=== PATIENT | female | born 1935 | race Caucasian/White ===

== ENCOUNTER 2016-12-29 05:21 | Inpatient (IN) ==
[2016-12-29] MEDS ORDERED: MORPHINE SULFATE 4mg INJECTION IVP ONE (05:27)
[2016-12-29] MEDS ORDERED: ONDANSETRON 4 MG/2 ML INJECTION IVP ONE (05:27)
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
[2016-12-29] MEDS: SALINE FLUSH 10ml SYRINGE IVF PRN (05:33)
[2016-12-29] MEDS ORDERED: NS 1,000 ML IV SCH (06:00)
[2016-12-29] MEDS ORDERED: HYDROMORPHONE 2 MG/ML INJECTION IVP ONE (06:16)
[2016-12-29] MEDS ORDERED: HYDROMORPHONE 2 MG/ML INJECTION IVP PRN (06:33)
[2016-12-29] MEDS ORDERED: MORPHINE SULFATE 4mg INJECTION IVP PRN (07:34)
[2016-12-29] MEDS ORDERED: METOCLOPRAMIDE 10mg/2ml INJECTION IVP PRN ×2 (07:34→16:31)
[2016-12-29 08:07] VITALS: BMI 29.5
[2016-12-29] MEDS: NS 1,000 ML IV SCH ×2 (08:18→21:04)
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
--- NOTE | 2016-12-29 09:08 | Orthopedic Consult Note ---
Orthopedic Consultation HPI - Consultation Info Consult Date: 12/29/16 Attending Physician: Tu Holguin MD Consult Reason: fracture - History of Present Illness Maribell is a 81 yo lady who is developing some dementia. She was recently started on some meds for this problem. Due to her dementia there are some conflicting stories about what happened to her, but the base concern is that she fell and injured her left hip. Refer to the hospitalist note for more details on the different stories. The pain was immediate, severe and she was unable to ambulate. She was taken to the ER by EMS and found to have an IT fx of the left hip. Hospitalist service has admitted her and cleared her for surgery. Dr Lewis was consulted and plans IM nailing of the left femur this AM. Review of Systems ROS unobtainable: due to dementia - EENT Ears, nose, mouth, throat: Absent: headaches - Cardiovascular Cardiovascular: Absent: chest pain - Respiratory Respiratory: Absent: cough, dyspnea - Gastrointestinal Gastrointestinal: Absent: abdominal pain - Musculoskeletal Musculoskeletal: Present: as per HPI, other (Denies other injury.) - Neurological Neurological: Absent: numbness, tingling - Psychiatric Psychiatric: Present: other (Memory changes.) [facility] Patient Stated Medical History Sleep Apnea No Surgical History: Cholecystectomy - Social History Smoking status: Never smoker Medications Home Medications Medication Instructions Recorded Confirmed Type Donepezil HCl [Aricept] 10 mg PO HS 12/29/16 12/29/16 History Ibuprofen/Diphenhydramine Cit 1 each PO HS 12/29/16 12/29/16 History [Advil Pm Caplet] [facility] 1 tab PO DAILY 12/29/16 History Allergies Allergy/AdvReac Type Severity Reaction Status Date / Time No Known Allergies Allergy Unverified 07/08/14 00:41 Orthopedic Exam Vital signs: Temperature 95.7 F L 12/29/16 08:11 Pulse Rate 94 12/29/16 08:11 Respiratory Rate 18 12/29/16 08:11 Blood Pressure 150/93 H 12/29/16 08:11 Pulse Oximetry 100 12/29/16 08:11 - Constitutional General Appearance: Present: alert - Respiratory Exam Present: non-labored - Cardiovascular Exam Present: pedal pulses intact Capillary Refill: < 2-3 Seconds - Abdominal Exam Present: soft. Absent: tenderness, distended - Extremities Exam Present: pulses intact - Hip Exam left Hip Exam: Present: unequal leg length, tender over trochanter, abnormal rotation. Absent: alignment normal - Integumentary Exam Present: pink, warm, dry - Neurological Exam Present: no deficits - Psychiatric Exam Present: alert - Labs Result Diagrams: 12/29/16 05:27 12/29/16 05:27 Impression and Recommendation (1) Intertrochanteric fracture of left hip Current visit: Yes Qualifiers: Encounter type: initial encounter Fracture type: closed Fracture alignment: displaced Qualified Code(s): S72.142A - Displaced intertrochanteric fracture of left femur, initial encounter for closed fracture Status: Acute Plan IM nailing with a Gamma Nail this AM. I discussed the procedure with pt and family. Dr Lewis will meet with them before surgery and discuss further. Hospital Course Summary Disclaimer: The visit summary below is not to be considered part of the above Progress Note.
[2016-12-29] MEDS: ONDANSETRON 4 MG/2 ML INJECTION IVP PRN ×2 (09:10→13:42)
--- NOTE | 2016-12-29 09:22 | Anesthesia Preoperative Report ---
Anesthesia Preoperative Record - Date and Time Date: 12/29/16 Preoperative Diagnosis: hip Proposed Procedure: Left hip Gamma nail NPO Since Date: 12/29/16 NPO Since Time: 00:00 Allergies/Adverse Reactions: Allergies Allergy/AdvReac Type Severity Reaction Status Date / Time No Known Allergies Allergy Unverified 07/08/14 00:41 - Vital Signs Vital Signs: Temperature 95.7 F L 12/29/16 08:11 Pulse Rate 94 12/29/16 08:11 Respiratory Rate 18 12/29/16 08:11 Blood Pressure 150/93 H 12/29/16 08:11 Pulse Oximetry 100 12/29/16 08:11 - Medications Inpatient Medications: Current Medications Hydromorphone HCl (Dilaudid) 0.5 mg IVP O PRN PRN Reason: Pain Hydromorphone HCl (Dilaudid) 0.5 mg IVP Q2H PRN PRN Reason: Pain Sodium Chloride (Normal Saline) 1,000 mls @ 100 mls/hr IV .Q10H ADAM Last Admin: 12/29/16 08:18 Dose: 100 mls/hr Metoclopramide HCl (Reglan) 5 mg IVP Q6H PRN Morphine Sulfate (Morphine Sulfate Inj) 1 - 2 mg IVP Q2H PRN PRN Reason: Pain Last Admin: 12/29/16 08:17 Dose: 2 mg Ondansetron HCl (Zofran) 4 mg IVP Q6H PRN PRN Reason: Nausea &/or vomiting Last Admin: 12/29/16 09:10 Dose: 4 mg Sodium Chloride (Iv Flush) 10 - 80 ml IVF PRN PRN PRN Reason: Flushing Last Admin: 12/29/16 05:33 Dose: 20 ml Home Medications: Home Medications Medication Instructions Recorded Confirmed Type Donepezil HCl [Aricept] 10 mg PO HS 12/29/16 12/29/16 History Ibuprofen/Diphenhydramine Cit 1 each PO HS 12/29/16 12/29/16 History [Advil Pm Caplet] [facility] 1 tab PO DAILY 12/29/16 History Is Patient on Beta Tejinder?: No - Medical History Respiratory: DENIES: Sleep Apnea Cardiovascular: Reports: Hypertension (TAKES HERBAL MEDS) Neuro/Musculoskeletal: Reports: Other (Dementitia) - Surgical History GI Surgery/Treatments: Reports: Cholecystectomy Musculoskeletal Surgery/Tx: Reports: Other (broken ankle, casted) Anesthesia Reactions: None Hx Family Anesthesia Reaction: No History of Motion Sickness: No - Social History Smoking Status: Never smoker Hx Chewing Tobacco Use: No Second Hand Exposure: No Substance Use Type: does not use Alcohol Intake Frequency: does not drink - Pertinent Findings EKG: Sinus Rhythm (occ PAC) - Physical Exam Respiratory Exam: Present: lungs clear Cardiovascular Exam: Present: regular rate and rhythm - Airway Assessment Mallampati Score: II TMD: 3 Fingerbreadths Neck Extension: fair Overall Assessment: no airway concerns - ASA ASA Score: 2 - Plan Anesthesia: General TIVA - Discussion Discussion: Discussed risks/options/alternatives of anesthesia and questions answered. Patient consents. Nursing pain assessment noted. Present for Discussion: family member Attestation Statement: Prior to the delivery of any anesthetic medication, I examined the patient, developed the plan, obtained the patient's consent and discussed the risk and benefits of the procedure with the patient/guardian. - Additional Information Seen by Anesthesia: Yes
[2016-12-29] MEDS ORDERED: HALOPERIDOL 0.5 MG TABLET PO PRN (09:36)
[2016-12-29] MEDS ORDERED: BISACODYL 10 MG SUPPOSITORY RECTALLY PRN (09:36)
[2016-12-29] MEDS: LR 1,000 ML IV SCH ×2 (10:10→11:35)
[2016-12-29] MEDS ORDERED: LIDOCAINE 1% (10mg/ml) 30ml SDV INJ ONE (10:17)
[2016-12-29] MEDS ORDERED: BUPIVACAINE 0.25% (2.5mg/ml) PF 30ml INJECTION ONE (10:18)
[2016-12-29] MEDS ORDERED: BUPIV 0.25% 30ml/LIDO 1% 30ml MIXTURE ID ONE (10:28)
[2016-12-29] MEDS ORDERED: CEFAZOLIN 1 G INJECTION ONE (10:28)
[2016-12-29] MEDS ORDERED: CEFAZOLIN 1 G INJECTION IVP ONE (10:29)
[2016-12-29] MEDS ORDERED: PHENYLEPHRINE INJ 10 MG/ML VIAL IV ONE (10:33)
[2016-12-29] MEDS ORDERED: SALINE FLUSH 10ml SYRINGE ONE (10:34)
[2016-12-29] MEDS ORDERED: PROPOFOL 1,000 MG/100 ML VIAL IV ONE (11:21)
[2016-12-29] MEDS ORDERED: ONDANSETRON 4 MG/2 ML INJECTION IVP PRN (11:28)
--- NOTE | 2016-12-29 11:31 | Anesthesia Postoperative Note ---
- Date and Time Date: 12/29/16 Time: 11:29 - Status Patient Participated in Evaluation: Patient Participated in Person Vital Signs: Temperature 95.7 F L 12/29/16 08:11 Pulse Rate 94 12/29/16 08:11 Respiratory Rate 18 12/29/16 08:11 Blood Pressure 150/93 H 12/29/16 08:11 Pulse Oximetry 100 12/29/16 08:11 Respiratory Function: Airway Patent Cardiovascular Function: Regular Pulse EKG: Sinus Rhythm Mental Status: Lethargic (Confused. Patient has Hx of Dementia) Pain Intensity: 5 Hydration: IV Infusing Complications During Recover: None Apparent - Follow-Up Instructions Instructions: Per Surgeon
[2016-12-29] MEDS: HYDROMORPHONE 2 MG/ML INJECTION IVP PRN ×4 (11:49→23:59)
--- NOTE | 2016-12-29 12:23 | Operative Note ---
DATE OF SURGERY 12/29/2016 PREOPERATIVE DIAGNOSIS Left two-part intertrochanteric hip fracture. PREOPERATIVE DIAGNOSIS Left two-part intertrochanteric hip fracture. PROCEDURE Intramedullary fixation of left two-part intertrochanteric hip fracture. SURGEON Dante Lewis MD DELIVERY NURSE Mervin Diaz PA-C COMPLICATIONS None. ANESTHESIA TIVA EBL/FLUIDS Please see anesthetic records. DESCRIPTION OF PROCEDURE Mrs. Cabello and her left hip were identified and marked in her hospital room bed. She was brought back to the operating suite and placed under general anesthesia on the hospital room bed. She was then transferred to the fracture table. Both feet were placed in well-padded traction boots. The left leg was placed into straight traction. The right leg was placed into extension without traction. The left lower extremity was prepped and draped in my normal sterile fashion. Time-out was performed. A 3-cm incision was made proximal to the greater trochanter. The proximal femur was opened over a guide pin. A short 11-mm Gamma nail was selected and placed into the proximal femur. A lag screw was then placed into a center-center position using the aiming arm over a guide pin. This was a 90-mm lag screw. It achieved a good bite. Compression device was used to provide compression at the fracture site. The nail was then locked proximally, then let back 1/8 turn to allow for compression. The nail was locked distally using the aiming arm using a 37.5-mm screw. Local injection was used at all incision sites. Multiple fluoroscopic images were taken to insure good hardware placement and fracture reduction. All wounds were thoroughly irrigated and closed in layers. She was then taken out of traction and transferred back to her recovery room bed. She was allowed to awaken from general anesthesia and taken to the recovery room under the care of Anesthesia. She tolerated the procedure well. There were no complications. JOCELYN
[2016-12-29] MEDS ORDERED: NOZIN NASAL SWAB NAS ONE (13:54)
[2016-12-29] MEDS: NOZIN NASAL SWAB NAS SCH ×2 (14:30→21:57)
[2016-12-29] MEDS: CEFAZOLIN 2 G in NS 100 ML IV SCH (18:05)
[2016-12-29] MEDS: SENNA + DOCUSATE TABLET PO SCH (21:57)
[2016-12-30] MEDS: CEFAZOLIN 2 G in NS 100 ML IV SCH (02:06)
[2016-12-30] MEDS: HYDROMORPHONE 2 MG/ML INJECTION IVP PRN ×2 (05:00→19:36)
[2016-12-30] MEDS: ACETAMINOPHEN 325 MG TABLET PO PRN ×3 (05:01→19:01)
[2016-12-30] MEDS: NOZIN NASAL SWAB NAS SCH ×3 (05:01→21:42)
[2016-12-30] MEDS: NS 1,000 ML IV SCH (07:59)
--- NOTE | 2016-12-30 08:49 | XRay Report ---
Indication: preop PROCEDURE: XR chest 1V: Encounter: Initial Comparison: July 07, 2014 Findings: The lungs are stable in appearance without new focal airspace consolidation. There is no pleural effusion or pneumothorax. The heart size and mediastinal contours are unchanged. IMPRESSION: Stable appearance of the chest without acute cardiopulmonary disease. .
--- NOTE | 2016-12-30 08:50 | XRay Report ---
Indication: fall left hip pain external rotation PROCEDURE: XR pelvis w/ 2 view LT hip: Encounter: Initial Comparison: None Findings: Mildly displaced intertrochanteric left femoral fracture. No additional acute fracture or dislocation seen. No significant angulation. Impression: Closed posttraumatic intertrochanteric left femoral fracture. .
--- NOTE | 2016-12-30 09:15 | Orthopedic Progress Note ---
Date: Subjective/Severity of Illness: Maribell reports little pain at rest but hurts more with movement. Denies any CP or breathing issues. No drainage from the wounds. She is thirsty for coffee and feels she is ready to eat something. Denies nausea at this time but has reported some previously. Orthopedic Objective PO Vital signs: Temperature 98.2 F 12/30/16 07:30 Pulse Rate 89 12/30/16 07:30 Respiratory Rate 16 12/30/16 07:30 Blood Pressure 118/65 12/30/16 07:30 Pulse Oximetry 100 12/30/16 07:30 - Constitutional General Appearance: Present: alert, cooperative, no acute distress - Respiratory Exam Present: non-labored - Cardiovascular Exam Present: pedal pulses intact - Extremities Exam Extremities: Present: pulses intact. Absent: calf tenderness - Surgical Site Incision: dressing intact, no drainage - Neurological Exam Present: no deficits - Psychiatric Exam Present: alert - Labs Result Diagrams: 12/30/16 04:08 12/30/16 04:08 Abnormal lab results 12/30/16 Range/Units 04:08 RBC 3.33 L (4.00-5.20) M/MM3 Hgb 9.1 L D (12-16) GM/DL Hct 29.4 L D (36-46) % Neut % (Auto) 76.8 H (33-66) % Lymph % (Auto) 10.4 L (23-45) % [place] % (Auto) 11.9 H (0-9.0) % Lymph # (Auto) 0.9 L (1-4.8) T/MM3 [place] # (Auto) 1.0 H (0-0.8) T/MM3 H & H 12/30/16 Range/Units 04:08 Hgb 9.1 L D (12-16) GM/DL Hct 29.4 L D (36-46) % Orthopedic Assessment and Plan (1) Intertrochanteric fracture of left hip Status: Acute Qualifiers: Encounter type: initial encounter Fracture type: closed Fracture alignment: displaced Qualified Code(s): S72.142A - Displaced intertrochanteric fracture of left femur, initial encounter for closed fracture Assessment and Plan: Mobilize with therapy. WBAT. Lovenox and SCDs for DVT coverage. Hgb 9.1 this AM. Monitor. Hospital Course Summary Disclaimer: The visit summary below is not to be considered part of the above Progress Note. Hospital Course: 12/29/16 09:46 IMPRESSION Left hip IT fracture s/p fall Leukocytosis, suspect reactive Hypokalemia, POA HTN dementia PLAN Admit, inpatient status, under the hospitalist service. Dr. Lewis has been consulted and is planning IM nailing this morning. Diet: NPO. NS @ 100 mL/hr for hydration. Tan ordered per ED MD. Will give dose of KDur this evening with supper. Tele given hx of palpitations. Check TSH. Check Vit B12 and prealbumin d/t hx of not eating well, weight loss, and hallucinations. Monitor for postop/post injury complications - ABLA, constipation, delirium, atelectasis, immobility issues. -Check CBC/BMP in am to f/u on WBC, H&H & K. -Bowel regimen ordered. -Haldol PRN. Continue home donepezil when meds reconciled by RN. -Encourage IS -Consult PT/OT. -VTE PPX - SCDs, start Lovenox tomorrow am. Hx HTN, on herbals - monitor closely; may need to start antiHTN. BP markedly elevated on admission but this was confounded by acute pain. Advanced directives - not completed. Likely will name daughter Ana Maria as DPOA ( at time of admission, even with mild dementia, pt appeared to have mental capacity to make decisions, as she was able to understand the need for sx). No living will; FULL CODE.
[2016-12-30] MEDS: ENOXAPARIN 40 MG/0.4 ML INJECTION SQ SCH (09:17)
[2016-12-30] MEDS: POLYETHYL GLYCOL 3350 17gm PACKET PO SCH (09:17)
[2016-12-30] MEDS: SENNA + DOCUSATE TABLET PO SCH ×2 (09:17→21:42)
--- NOTE | 2016-12-30 09:18 | XRay Report ---
Indication: POST OP PAIN PROCEDURE: AP and Lateral views of the Left Femur Encounter: Initial Comparison: None Findings: Internally fixed left intertrochanteric left femoral fracture with intramedullary may all and compression screw. Stable alignment. No new findings or evidence of hardware failure. Moderate degenerative change in the knee joint. Expected postoperative subcutaneous gas. No retained radiopaque surgical instruments or sponges. Impression: Postoperative changes without immediate complication. .
--- NOTE | 2016-12-30 09:30 | Remote Fluorsocopy Report ---
Indication: LT HIP FX PROCEDURE: RF hip LT 2 view: Encounter: Initial Comparison: Left pelvis radiographs from the same date Findings: Three fluoroscopic spot images show open reduction and internal fixation of the left femoral neck fracture with placement of an an intramedullary nail, compression screw and distal interlocking screw. Improved alignment. Impression: Fluoroscopy as above. Fluoroscopy time is 87.9 seconds. Fluoroscopy dose is 1870 mRad. .
[2016-12-30] MEDS ORDERED: FUROSEMIDE 20 MG/2 ML INJECTION IVP ONE (12:32)
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
[2016-12-30] MEDS: HYDROCODONE/APAP 5mg/325mg TABLET PO PRN ×2 (13:12→17:25)
[2016-12-30] MEDS: SALINE FLUSH 10ml SYRINGE IVF PRN ×2 (19:36→21:48)
[2016-12-30] MEDS ORDERED: QUETIAPINE 25 MG TABLET PO SCH (21:00)
[2016-12-31] MEDS: HYDROCODONE/APAP 5mg/325mg TABLET PO PRN ×2 (04:24→13:55)
[2016-12-31] MEDS: SALINE FLUSH 10ml SYRINGE IVF PRN ×4 (06:17→11:40)
[2016-12-31] MEDS: NOZIN NASAL SWAB NAS SCH (06:17)
--- NOTE | 2016-12-31 08:07 | Orthopedic Progress Note ---
Date: Subjective/Severity of Illness: Appetite not very good this AM. Not painful at rest but hurts with movement. Pt states she is ready to get up out of bed. No CP or feeling SOA. Denies being lightheaded or dizzy. Orthopedic Objective PO Vital signs: Temperature 98.5 F 12/31/16 04:00 Pulse Rate 91 12/31/16 04:00 Respiratory Rate 16 12/31/16 04:00 Blood Pressure 134/65 12/31/16 04:00 Pulse Oximetry 92 12/31/16 04:00 Height and Weight: Weight 182 lb 15.739 oz - Constitutional General Appearance: Present: alert, cooperative, no acute distress - Respiratory Exam Present: non-labored - Cardiovascular Exam Present: pedal pulses intact - Abdominal Exam Present: soft. Absent: tenderness, distended - Extremities Exam Extremities: Present: pulses intact. Absent: calf tenderness - Surgical Site Incision: dressing intact, no drainage - Integumentary Exam Present: pink, warm, dry - Neurological Exam Present: no deficits - Psychiatric Exam Present: alert - Labs Result Diagrams: 12/31/16 04:12 12/31/16 04:12 Abnormal lab results 12/31/16 12/31/16 Range/Units 04:12 04:12 RBC 3.04 L (4.00-5.20) M/MM3 Hgb 8.3 L (12-16) GM/DL Hct 27.1 L (36-46) % MCHC 30.6 L (31-37) GM/DL Neut % (Auto) 68.5 H (33-66) % Lymph % (Auto) 14.0 L (23-45) % [place] % (Auto) 12.5 H (0-9.0) % Eos % (Auto) 4.3 H (0-4) % [place] # (Auto) 0.9 H (0-0.8) T/MM3 Anion Gap 3 L (5-15) MEQ/L Creatinine 0.6 L (0.7-1.2) MG/DL H & H 12/30/16 12/31/16 Range/Units 04:08 04:12 Hgb 9.1 L D 8.3 L (12-16) GM/DL Hct 29.4 L D 27.1 L (36-46) % Orthopedic Assessment and Plan (1) Intertrochanteric fracture of left hip Status: Acute Qualifiers: Encounter type: initial encounter Fracture type: closed Fracture alignment: displaced Qualified Code(s): S72.142A - Displaced intertrochanteric fracture of left femur, initial encounter for closed fracture Assessment and Plan: Short Gamma Nail 12/29/16 Dr Joshua HAYES. Mobilize with therapy. WBAT. Lovenox and SCDs for DVT coverage. F/U 3 weeks from surgery date. - Anticoagulation Therapy Anticoagulation: Lovenox 40 mg SQ Daily x 30 days from day of surgery Hospital Course Summary Disclaimer: The visit summary below is not to be considered part of the above Progress Note. Hospital Course: 12/29/16 09:46 IMPRESSION Left hip IT fracture s/p fall Leukocytosis, suspect reactive Hypokalemia, POA HTN dementia PLAN Admit, inpatient status, under the hospitalist service. Dr. Lewis has been consulted and is planning IM nailing this morning. Diet: NPO. NS @ 100 mL/hr for hydration. Tan ordered per ED MD. Will give dose of KDur this evening with supper. Tele given hx of palpitations. Check TSH. Check Vit B12 and prealbumin d/t hx of not eating well, weight loss, and hallucinations. Monitor for postop/post injury complications - ABLA, constipation, delirium, atelectasis, immobility issues. -Check CBC/BMP in am to f/u on WBC, H&H & K. -Bowel regimen ordered. -Haldol PRN. Continue home donepezil when meds reconciled by RN. -Encourage IS -Consult PT/OT. -VTE PPX - SCDs, start Lovenox tomorrow am. Hx HTN, on herbals - monitor closely; may need to start antiHTN. BP markedly elevated on admission but this was confounded by acute pain. Advanced directives - not completed. Likely will name daughter Ana Maria as DPOA ( at time of admission, even with mild dementia, pt appeared to have mental capacity to make decisions, as she was able to understand the need for sx). No living will; FULL CODE. 12/30/16 12:55 12/30/16- Patient is medically progressing. Continue to monitor labs closely. Appears to be at risk for fluid overload- suspect A.S. Get Echo in AM. Add lasix/KCL and monitor progress. 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 Continue supportive care. Add Seroquel at bedtime to see if that helps behaviors. Add [place] for pain control. May need to add Gabapentin if pain persists. Will need placement- IRU or SNU. Daughter reports family would like to look at SNU in [place]. Recommended [facility] or [facility] if they desire [place] [facility]. [facility] does have memory care options. Would recommend that pt establish DPOA. They will need to look into HCBS supplementation for care at home in the future most likely. Pt will likely need 3-4 weeks of care at least as both she and primary caregiver are recovering. She does not have a PCP- I would be happy to see her in my clinic post discharge. [facility]- Jasmin Tineo APRN Call [phone] to set up appointment after discharge from SNU. We can assist with setting up PCP. Would recommend Home Health on dismissal from SNU>
[2016-12-31] MEDS: ACETAMINOPHEN 325 MG TABLET PO PRN (08:59)
[2016-12-31] MEDS: POLYETHYL GLYCOL 3350 17gm PACKET PO SCH (08:59)
[2016-12-31] MEDS: SENNA + DOCUSATE TABLET PO SCH (08:59)
[2016-12-31] MEDS ORDERED: FUROSEMIDE 40 MG TABLET PO SCH (09:00)
[2016-12-31] MEDS: ENOXAPARIN 40 MG/0.4 ML INJECTION SQ SCH (09:03)
[2016-12-31] MEDS ORDERED: MORPHINE SULFATE 4mg INJECTION IVP PRN (09:06)
[2016-12-31] MEDS ORDERED: MORPHINE SULFATE 2mg INJECTION IVP PRN (09:15)
[2016-12-31] MEDS: HYDROMORPHONE 2 MG/ML INJECTION IVP PRN (09:18)
--- NOTE | 2016-12-31 10:32 | Progress Note ---
<Jill Izquierdo - Last Filed: 12/31/16 10:28> - Date 12/31/16 Subjective: Maribell is seen today in follow up for her anemia and recent short gamma nail placed on 12/29. She is seen while sitting in her recliner, resting. Dry toast on her tray in front of her but she refuses to eat due to increased nausea. Nursing reports that she has complained of severe left hip pain with initial therapy session this morning in which she transferred from her bed to the chair. She also complained of nausea which she believed was due to her pain. She denies any chest pain, shortness of breath, abdominal pain, vomiting or dysuria. Due to her significant pain, she received Dilaudid resulting in increased sedation and required placement of 2L NC oxygen. She denies use of oxygen at home or history of lung complications. Discussed and reviewed importance and technique of incentive spirometry. Labs were reviewed and revealed hemoglobin trending down at 8.3. BMP unremarkable. Echocardiogram report pending. Weight trending up slightly. Objective Vital signs: Temperature 96.4 F L 12/31/16 08:00 Pulse Rate 83 12/31/16 08:00 Respiratory Rate 26 H 12/31/16 08:00 Blood Pressure 126/65 12/31/16 08:00 Pulse Oximetry 99 12/31/16 08:00 Height/Weight/BMI: Weight 182 lb 15.739 oz - Constitutional Present: no acute distress, well nourished, well developed, cooperative Comments: somnolent, arouses easily on exam but states "I just want to rest". - Routine HEENT Exam Head: Present: normocephalic, atraumatic Eye: Present: PERRL. Absent: conjunctival icterus ENT: Present: mucous membranes moist - Routine Respiratory Exam Present: CTA bilaterally. Absent: stridor, wheezes, crackles - Routine Cardiovascular Exam Present: RRR, S1, S2, murmur - Routine Abdominal Exam Present: soft, normoactive bowel sounds, non distended, non tender - Routine Extremities Exam Present: edema (trace - 1+), pulses intact Comments: SCDs in place bilaterally. - Routine Back/Spine/Pelvis Exam Back/Spine: Present: full ROM - Routine Skin Exam Present: dry, warm. Absent: jaundice Comments: ecchymosis noted to left hip with dressing intact. - Routine Neurological Exam Present: alert, moving all extremities, hearing grossly intact, normal speech - Routine Lymphatic Exam Lymphatic: Absent: lymphedema - Routine Psychiatric Exam Present: cooperative Comments: somnolent following medication. Results - Labs CBC & Chem 7: 12/31/16 04:12 12/31/16 04:12 Assessment and Plan (1) Intertrochanteric fracture of left hip Current visit: Yes Status: Acute Assessment and Plan: IMPRESSION Left hip IT fracture s/p fall Leukocytosis, suspect reactive Hypokalemia (POA) HTN Dementia Aortic murmur, suspected VHD Fluid retention. ABLA, left hip hematoma Acute pain [facility] Plan - 12/31/16 (Mirakian). Maribell had significant issues with severe pain this morning with transfer with therapy. Anticipate therapy to be slow going given patient's pain. Dilaudid was given with improvement in pain but significantly increased sedation requiring oxygen at 2L to be placed. Encourage use of Morphine and oral pain control as able and monitor respiratory function closely. Discussed and review technique for incentive spirometry for pulmonary toileting. Nausea this morning, believed to be secondary to increased pain. Zofran given. Continue to encourage oral intake and monitor urinary output closely. Weight trending up slowly. Monitor closely as patient is at risk for fluid overload. Echocardiogram results pending. Monitor daily weights. Continue to encourage PT/OT for strengthening and improvement in functional abilities. Hemoglobin trending down at 8.3. Patient denies dizziness or near syncope. Continue to monitor closely and will recheck CBC and BMP in AM to monitor blood counts, electrolytes and renal function. Continue to encourage bowel motivation. DVT Prophylaxis: SCD's, Lovenox Resuscitation Status: Full Code - Time spent with patient Time with patient PN: 30 minutes Hospital Course Summary Disclaimer: The visit summary below is not to be considered part of the above Progress Note. Hospital Course: 12/29/16 09:46 IMPRESSION Left hip IT fracture s/p fall Leukocytosis, suspect reactive Hypokalemia, POA HTN dementia PLAN Admit, inpatient status, under the hospitalist service. Dr. Lewis has been consulted and is planning IM nailing this morning. Diet: NPO. NS @ 100 mL/hr for hydration. Tan ordered per ED MD. Will give dose of KDur this evening with supper. Tele given hx of palpitations. Check TSH. Check Vit B12 and prealbumin d/t hx of not eating well, weight loss, and hallucinations. Monitor for postop/post injury complications - ABLA, constipation, delirium, atelectasis, immobility issues. -Check CBC/BMP in am to f/u on WBC, H&H & K. -Bowel regimen ordered. -Haldol PRN. Continue home donepezil when meds reconciled by RN. -Encourage IS -Consult PT/OT. -VTE PPX - SCDs, start Lovenox tomorrow am. Hx HTN, on herbals - monitor closely; may need to start antiHTN. BP markedly elevated on admission but this was confounded by acute pain. Advanced directives - not completed. Likely will name daughter Ana Maria as DPOA ( at time of admission, even with mild dementia, pt appeared to have mental capacity to make decisions, as she was able to understand the need for sx). No living will; FULL CODE. 12/30/16 12:55 12/30/16- Patient is medically progressing. Continue to monitor labs closely. Appears to be at risk for fluid overload- suspect A.S. Get Echo in AM. Add lasix/KCL and monitor progress. 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 Continue supportive care. Add Seroquel at bedtime to see if that helps behaviors. Add [place] for pain control. May need to add Gabapentin if pain persists. Will need placement- IRU or SNU. Daughter reports family would like to look at SNU in [place]. Recommended [facility] or [facility] if they desire [facility]. [facility] does have memory care options. Would recommend that pt establish DPOA. They will need to look into HCBS supplementation for care at home in the future most likely. Pt will likely need 3-4 weeks of care at least as both she and primary caregiver are recovering. She does not have a PCP- I would be happy to see her in my clinic post discharge. [facility]- Jasmin Tineo APRN Call [phone] to set up appointment after discharge from SNU. We can assist with setting up PCP. Would recommend Home Health on dismissal from SNU> Plan - 12/31/16 (Timbo). Maribell had significant issues with severe pain this morning with transfer with therapy. Anticipate therapy to be slow going given patient's pain. Dilaudid was given with improvement in pain but significantly increased sedation requiring oxygen at 2L to be placed. Encourage use of Morphine and oral pain control as able and monitor respiratory function closely. Discussed and review technique for incentive spirometry for pulmonary toileting. Nausea this morning, believed to be secondary to increased pain. Zofran given. Continue to encourage oral intake and monitor urinary output closely. Weight trending up slowly. Monitor closely as patient is at risk for fluid overload. Echocardiogram results pending. Monitor daily weights. Continue to encourage PT/OT for strengthening and improvement in functional abilities. Hemoglobin trending down at 8.3. Patient denies dizziness or near syncope. Continue to monitor closely and will recheck CBC and BMP in AM to monitor blood counts, electrolytes and renal function. Continue to encourage bowel motivation. <Tu Holguin D - Last Filed: 12/31/16 11:44> - Date 12/31/16 Objective Vital signs: Temperature 98.6 F 12/31/16 11:25 Pulse Rate 84 12/31/16 11:25 Respiratory Rate 16 12/31/16 11:25 Blood Pressure 130/69 12/31/16 11:25 Pulse Oximetry 99 12/31/16 11:25 Height/Weight/BMI: Weight 83 kg Results - Labs CBC & Chem 7: 12/31/16 04:12 12/31/16 04:12 Assessment and Plan (1) Intertrochanteric fracture of left hip Current visit: Yes Status: Acute Assessment and Plan: IMPRESSION Left hip IT fracture s/p fall Leukocytosis, suspect reactive Hypokalemia (POA) HTN Dementia Aortic murmur, suspected VHD Fluid retention. ABLA, left hip hematoma Acute pain Briseida's Have independently interviewed and examined pt. Chart reviewed. Case discussed with CM, nursing, and my PA. Care plan developed with my supervision; agree with above. Rough morning. Up with therapy for first time-very painful. Did receive IV Dilaudid and resp drive decreased and became somnolent. Nauseated this morning- very upset to stomach. Not having ab pain or cramping. Not feeling chest congestion, cough, or pain with breathing. Nursing reports no agitation or behavioral issues. Lungs: decreased, no distress CV: regular with murmur AB: soft nt/nd BS decreased MSE: awake alert appropriate Plan: Will stop Dilaudid due to somnolence and decreased respiratory drive; Low dose MS available-trying to transition to oral pain medications. Stop Seroquel- not seeing behavioral issues and likely could increase daytime sedation. Monitor blood counts - may need transfusion. Bladder retraining - worry too soon now to remove Tan as functional status still very declined and pain with movements/transfers. PT/OT to help increase abilities. CM looking into post discharge options. Time spent with patient care 35 minutes. High risk medication involved - MS IV. - Time spent with patient Time with patient PN: 35 minutes Hospital Course Summary Disclaimer: The visit summary below is not to be considered part of the above Progress Note.
[2016-12-31 11:26] VITALS: BP 130/69; PULSE 84; RESP 16; TEMP 98.6
[2016-12-31] MEDS: ONDANSETRON 4 MG/2 ML INJECTION IVP PRN (11:41)
[2016-12-31 14:45] VITALS: O2SAT 96
--- NOTE | 2016-12-31 14:53 | Discharge Summary ---
Discharge Information Date of admission: 12/29/16 08:46 Anticipated date of discharge: 12/31/16 Attending Physician: Tu Holguin MD Consults: Dr Lewis - orthopedic surgery Dr Shankar - metabolic bone consult PT/OT IRU for rehab evaluation - Discharge Diagnosis (1) Intertrochanteric fracture of left hip Status: Acute Discharge diagnosis Left two-part intertrochanteric hip fracture post fall trauma Associated conditions and complications Mechanical fall Leukocytosis, suspect reactive Hypokalemia (POA) HTN Dementia Aortic murmur, suspected VHD Fluid retention. ABLA, left hip hematoma Acute pain [facility]owner's - Procedures Procedures: DATE OF SURGERY: 12/29/2016 PROCEDURE: Intramedullary fixation of left two-part intertrochanteric hip fracture. Physician: Dr Lewis - Laboratory Labs: Admit Labs 12/29/16 05:27 WBC 15.0 H Hgb 13.0 Hct 40.0 MCV 84.6 Plt Count 218 Neut % (Auto) 86.9 H Lymph % (Auto) 5.3 L Admit Lab 12/29/16 12/30/16 05:27 04:08 Sodium 142 Potassium 3.4 L Chloride 104 Carbon Dioxide 26 Anion Gap 12 BUN 15.0 Creatinine 0.6 L GFR Calculation 96 BUN/Creatinine Ratio 25 Glucose 113 H Calculated Osmolality 275 Calcium 10.3 H Total Bilirubin 0.90 AST 26 ALT 37 Alkaline Phosphatase 89 Creatine Kinase 55 Total Protein 7.9 Albumin 4.6 Globulin 3.3 Albumin/Globulin Ratio 1.4 Vitamin B12 534 THS Testing 12/30/16 04:08 TSH 4.20 Pending Lab 12/30/16 04:08 25-OH Vitamin D Total Pending 12/31/16 04:12 12/31/16 04:12 - Radiology Radiology: Date of Exam: 12/29/16 Type of Exam: XR pelvis w/ 2 view LT hip Findings: Mildly displaced intertrochanteric left femoral fracture. No additional acute fracture or dislocation seen. No significant angulation. Impression: Closed posttraumatic intertrochanteric left femoral fracture. Date of Exam: 12/29/16 Type of Exam: XR chest 1V Findings: The lungs are stable in appearance without new focal airspace consolidation. There is no pleural effusion or pneumothorax. The heart size and mediastinal contours are unchanged. IMPRESSION: Stable appearance of the chest without acute cardiopulmonary disease. Date of Exam: 12/29/16 Type of Exam: XR femur LT 2V Reason for Exam: POST OP PAIN Findings: Internally fixed left intertrochanteric left femoral fracture with intramedullary may all and compression screw. Stable alignment. No new findings or evidence of hardware failure. Moderate degenerative change in the knee joint. Expected postoperative subcutaneous gas. No retained radiopaque surgical instruments or sponges. Impression: Postoperative changes without immediate complication. History of Present Illness HPI: Maribell Cabello is a 81 y/o woman who woke up around 0100 to use the bathroom. She reports she took a sharp turn to avoid a book case, and then slipped on her recently cleaned and shined floor. She landed on her left side, and was unable to stand up. The pain was excruciating. Her daughter Ana Maria stays with her, and Maribell sent her cat to go wake her up. Seeing her mother on the floor in pain, she called 911 and Maribell was transferred to the ED, where she was diagnosed with a left hip fx and overall stable lab/CXR (except for reactive leukocytosis & mild hypokalemia). Her daughter however, reports a different story - Maribell woke up startled and shouted at Ana Maria's sister, "Get that man out of the house!". They tried to comfort and reassure her but she was agitated and ended up slipping and falling. Ana Maria reports that she has had occasional hallucinations , and her memory has been failing for quite some time. Maribell also reports a a fall 2 days ago in the back yard - tripped on a small tree. Denies hitting head or LOC. States that she stood up too quickly and then felt dizzy and lightheaded. She believes this was b/c she hadn't yet eaten. No f /c, cough/cold/allergies. Denies CP but states that her heart sometimes pounds and has palpitations (she's had them ever since her 10 years ago). She denies syncope or vertigo recently but daughter reports that she had a syncopal event about 3 years ago. She was evaluated and it was felt to be secondary to not eating (daughter states that she drinks excessive coffee). No unilateral paresthesias, weakness, aphasia, or periods of confusion. No headache , no recent vision changes. She denies dysphagia. She has been eating well, in fact has been trying to lose some weight and has increased vegetable consumption and has increased her exercise regimen. She denies abdominal pain, dyspepsia, n/v/d/c. No dysuria or frequency. She is continent of B/B. No rashes or open wounds. She no longer has a PCP (Dr. Beckford and hasn't found a new one). She states that she had a complete physical about 3 months ago - went in b/c she went the wrong way on a one-way road - she was started on donepezil by Dr. Cummins (this was confirmed by daughter Ana Maria). She used to take medication for HTN, but she admits she didn't take them as Rx. She has been able to find "the right combinations of herbs" to control her BP. For complete details of the H&P refer to that document. Objective Vital signs: Temperature 98.6 F 12/31/16 11:25 Pulse Rate 84 12/31/16 11:25 Respiratory Rate 16 12/31/16 11:25 Blood Pressure 130/69 12/31/16 11:25 Pulse Oximetry 96 12/31/16 13:35 Height/Weight/BMI: Weight 84.3 kg Hospital Course This is a general summary of the patient's hospital course. For more details refer to the complete medical record. Hospital course: 12/29/16 09:46 IMPRESSION Left hip IT fracture s/p fall Leukocytosis, suspect reactive Hypokalemia, POA HTN dementia PLAN Admit, inpatient status, under the hospitalist service. Dr. Lewis has been consulted and is planning IM nailing this morning. Diet: NPO. NS @ 100 mL/hr for hydration. Tan ordered per ED MD. Will give dose of KDur this evening with supper. Tele given hx of palpitations. Check TSH. Check Vit B12 and prealbumin d/t hx of not eating well, weight loss, and hallucinations. Monitor for postop/post injury complications - ABLA, constipation, delirium, atelectasis, immobility issues. -Check CBC/BMP in am to f/u on WBC, H&H & K. -Bowel regimen ordered. -Haldol PRN. Continue home donepezil when meds reconciled by RN. -Encourage IS -Consult PT/OT. -VTE PPX - SCDs, start Lovenox tomorrow am. Hx HTN, on herbals - monitor closely; may need to start antiHTN. BP markedly elevated on admission but this was confounded by acute pain. Advanced directives - not completed. Likely will name daughter Ana Maria as DPOA ( at time of admission, even with mild dementia, pt appeared to have mental capacity to make decisions, as she was able to understand the need for sx). No living will; FULL CODE. OP DAY Patient underwent Intramedullary fixation of left two-part intertrochanteric hip fracture by Dr Lewis. 12/30/16 - POD #1 Patient is medically progressing. Continue to monitor labs closely. Appears to be at risk for fluid overload- suspect A.S. Get Echo in AM. Add lasix/KCL and monitor progress. 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 Continue supportive care. Add Seroquel at bedtime to see if that helps behaviors. Add [place] for pain control. May need to add Gabapentin if pain persists. Will need placement- IRU or SNU. Daughter reports family would like to look at SNU in [place]. Recommended [facility] or [facility] if they desire [facility]. [facility] does have memory care options. Would recommend that pt establish DPOA. They will need to look into HCBS supplementation for care at home in the future most likely. Pt will likely need 3-4 weeks of care at least as both she and primary caregiver are recovering. She does not have a PCP- I would be happy to see her in my clinic post discharge. [facility]- Jasmin Tineo APRN Call [phone] to set up appointment after discharge from SNU. We can assist with setting up PCP. Would recommend Home Health on dismissal from SNU. 12/31/16 - POD #2 July had significant issues with severe pain this morning with transfer with therapy. Anticipate therapy to be slow going given patient's pain. Dilaudid was given with improvement in pain but significantly increased sedation requiring oxygen at 2L to be placed. Encourage use of Morphine and oral pain control as able and monitor respiratory function closely. Discussed and review technique for incentive spirometry for pulmonary toileting. Nausea this morning, believed to be secondary to increased pain. Zofran given. Continue to encourage oral intake and monitor urinary output closely. Weight trending up slowly. Monitor closely as patient is at risk for fluid overload. Echocardiogram results pending. Monitor daily weights. Continue to encourage PT/OT for strengthening and improvement in functional abilities. Hemoglobin trending down at 8.3. Patient denies dizziness or near syncope. Continue to monitor closely and will recheck CBC and BMP in AM to monitor blood counts, electrolytes and renal function. Continue to encourage bowel motivation. Patient accepted to IRU at [facility] to continue restorative modalities. Will discharge to IRU. See orders for details. Potentially follow up with [facility] - Jasmin Tineo - once IRU cares completed. Time spent with patient: discharge greater than 30 minutes DVT Prophylaxis: SCD's, Lovenox Discharge Plan - Discharge Disposition Discharge Date: 12/31/16 Disposition: 64 To [facility] INPT Rehab *Condition: Stable Reason For Visit (Visit label in EMR): hip fracture - Discharge Medications *Discharge Medications: New Bisacodyl Supp [Dulcolax] 10 mg RECTALLY DAILY PRN supp PRN Reason: Constipation Enoxaparin Sodium [Lovenox] 40 mg SQ DAILY syringe Hydrocodone/APAP 5/325 [[place] 5/325] 1 tab PO Q4H PRN tablet PRN Reason: Pain Milk of Magnesia [Mom] 30 ml PO DAILY PRN udc PRN Reason: Constipation Nozin Nasal Swab 1 each NELI Q8H appl Ondansetron Inj [Zofran] 4 mg IVP Q6H PRN vial PRN Reason: Nausea PEG 3350 17gm PACKET [Miralax] 17 gm PO DAILY packet Saline Flush [IV Flush] 10 - 80 ml IVF PRN PRN syringe PRN Reason: Flushing Acetaminophen [Tylenol] 650 mg PO Q5H PRN tablet PRN Reason: Discomfort Haloperidol [Haldol] 0.5 mg PO Q6H PRN tablet PRN Reason: Agitation/Restlessness Morphine Sulfate Inj 1 - 2 mg IVP Q2H PRN syringe PRN Reason: Pain Potassium Chloride [K-Dur] 20 meq PO WB tablet Senna + Docusate [Senna Plus Tablet] 1 tab PO BID tablet Continue Donepezil HCl [Aricept] 10 mg PO HS Discontinued Ibuprofen/Diphenhydramine Cit [Advil Pm Caplet] 1 each PO HS PRN PRN Reason: Discomfort [facility] 1 tab PO DAILY - Discharge Packet/Instructions *Diet: regular *Activity: WBAT *Pain Management/Treatment: Tylenol and [place], MS for severe pain *Wound Care: Keep wound covered and dry *Expected Signs/Symptoms: Improvement of physical abilities. Decreased post op pain. *Notify Physician if: Temp >100.4. Uncontrolled pain. *During Business Hours Contact: Nursing staff at IRU *After Business Hours Contact: Nursing staff at IRU *Pending Lab/Results: Follow up w/your PCP - IRU/GEN Discharge/Transfer - Referrals/Follow Up *Referrals/Follow Up: Jasmin Tineo, PHYSICAL [employer]ENCE [employer]ER [Advanced Practice Nurse] - (Consider f/u with Jasmin Tineo post discharge for IRU. ) - Patient Handouts - Dismissal Complete Discharge Instructions are:: Complete Attestation Narriative - Attestation Attestation Narrative: 12/31/16 15:10 I have independently interviewed and examined patient prior to discharge. See my progress note from today for details. Medically stable for discharge to IRU to continue restorative care.
--- NOTE | 2017-01-01 08:17 | Echocardiogram ---
DATE OF PROCEDURE December 31, [address] Tu Holguin This is a two-dimensional echo with spectral Doppler, color-flow and M-mode. It was obtained in a patient with murmur. Left atrial dimension is normal. Left ventricle end-diastolic dimension is normal. Left ventricle wall thickness is normal. LV systolic function is normal with ejection fraction of 73%. Right atrium is normal. Right ventricle is normal. Aortic root dimension is normal. Mitral valve annulus is calcified. Mitral valve leaflets show fibrocalcific changes with no stenosis. Mild mitral regurgitation is present. Aortic valve shows fibrocalcific changes with no stenosis with trace of aortic insufficiency. Tricuspid valve shows mild tricuspid regurgitation with moderate pulmonary hypertension with estimated pulmonary artery systolic pressure of 54. LVOT velocities are increased at 2.6 m/sec with peak gradient of 27 and mean gradient of 19. IMPRESSION 1. Elevated LVOT velocities suggestive of mild LV outflow obstruction. 2. Normal LV systolic function with ejection fraction of 73%. 3. Mitral annulus calcification with mitral sclerosis and mild mitral regurgitation. 4. Aortic sclerosis with trace of aortic insufficiency. 5. Mild tricuspid regurgitation with moderate pulmonary hypertension with estimated pulmonary artery systolic pressure of 54. MTDD
== END 2016-12-31 16:05 | DRG 481 ==
LOC: ED 05:21 → SRG 05:21
PROVIDERS: ADMIT Hospitalist; ATTEND Hospitalist

== ENCOUNTER 2016-12-31 16:09 | Inpatient (IN) ==
--- NOTE | 2016-12-31 16:35 | IRU History & Physical Report ---
HPI [facility] Date: 633 Chief complaint: My hip hurts HPI: Ms. Cabello is a very pleasant 81-year-old female living with her daughter in [facility]. Referring physician is Dr. Tu Holguin. She does not have a primary care physician but has been referred to Jasmin Tineo APRN. There are varying versions of how she fell. Apparently she fell at home over a door transom. In addition, she has reportedly fallen on several occasions prior to admission with report that she has fallen twice in the 2 days prior to when she came into the hospital. Regarding the current admission, she apparently thought there was a man in her home. She became quite agitated and tripped over the doorway and fell. This resulted in a left intertrochanteric hip fracture. She was admitted to acute care and taken to surgery by Dr. Lewis on 12/29/2016 for placement of a short gamma nail. She is now full weightbearing on the left hip. On the acute side, she has had significant pain and nausea. In addition she has had some behavior changes and does become confused with the use of pain medication. According to the family, she has good days and bad days with regard to her cognition. She does have a recent diagnosis of "early dementia." She was started on donepezil. She does not have a regular family physician at the present time. At home she actually is functionally independent. She can drive on her own. She is ambulatory at home without an assistive device. However she does have days when she is more confused and demonstrates memory loss. Today, upon admission when I interviewed her she knows what the month is, the year and who is president. She does live with her daughter in her home. The daughter apparently has had recent heart surgery however. Her functional level prior to the fall is as follows: She was independent with eating, grooming, upper and lower body dressing, toileting, bed/chair/ wheelchair transfers, toilet transfers and walking. She was able to walk some 500 feet without assistive device. She was independent with stairs. She was modified independent with bathing. Level of functioning at the present time since the fall is as follows: She is modified independent with eating, requires moderate assistance for grooming, total assistance for bathing, maximum assistance for upper body dressing, total assistance for lower body dressing, toileting, bed/chair/wheelchair transfers and toilet transfers. She is unable to walk at the present time. She does have history of hypertension which has been treated with natural remedies according to the chart. She has not been on any hypertensive for some time. On the acute care side she was noted to initially have leukocytosis which has resolved. In addition she has a heart murmur. This was evaluated with echocardiogram. I reviewed the echocardiogram and this demonstrates tricuspid regurgitation, minimal mitral regurgitation and normal contractility with ejection fraction around 73%. Question arose as to whether she might have significant . Question was raised as to whether she might have aortic stenosis and it appears as though she does not have significant amount. Aortic valve area is estimated at 1.9 cm.She appears to not have based on the echo. In addition, the patient has developed acute blood loss anemia. Her initial hemoglobin was 13 g percent and now it is down to 8.3 gm%. The following medical conditions are noted and require active monitoring and/or management: 1. Acute blood loss anemia. She is at risk for lightheadedness, hypotension, falls and further evidence of blood loss. 2. Difficult pain management: She has evidence of some delirium when she takes pain medications. Her pain level is significant. This will be monitored and treated appropriately. 3. Benign essential hypertension: She is at risk for uncontrolled hypertension in view of her significant pain and agitation. She is also at risk for hypotension in view of the acute blood loss anemia. The following therapies will be needed: 1. Physical therapy: for transfers and ambulation and stairs. 2. Occupational therapy: for ADL's and transfers. 3. Medical management: for the above conditions. 4. 24 hour Rehabilitation Nursing to monitor and address the following: Blood pressure, wound management, pain management, nausea and to reduce fall risk. [facility] Patient Stated Medical History Hypertension Yes: [employer] Sleep Apnea No Other Musculoskeletal Yes: [facility] Medical History Intertrochanteric fracture of left hip (Acute Medical) Surgical History: Cholecystectomy. Patient believes she has a T&A, hysterectomy and cataracts. Will confirm with family later. Family History: Her father at a relatively young age of heart problems. Mother committed suicide in her late 40s. She has numerous brothers and sisters. One brother did have a heart attack and another from cancer. - Social History Smoking status: Never smoker (patient states that she tried to smoke around age 18 but did not continue.) Substance use type: does not use Alcohol intake: never Household members: family (she lives with her daughter in 1 home.) Current occupational status: retired Current residence: Apartment/Private Home Social history: Patient is retired. Lives with her daughter. several years ago. Patient is functionally independent but does have days where she has problems with her memory. Review of Systems - Constitutional Constitutional: Present: anorexia. Absent: chills, fatigue, fever(s), headache( s), lethargy, malaise, night sweats, weakness, weight gain, weight loss - EENMT Eyes: Absent: blurry vision, change in vision, diplopia Mouth/Throat: Absent: changes in swallowing, painful swallowing, change in taste , bleeding gums, change in voice - Cardiovascular Cardiovascular: Absent: chest pain, palpitations, syncope, dyspnea on exertion, orthopnea, edema, cyanosis, heart murmur Rhythm: Present: regular rhythm Vascular: Absent: intermittent claudication, pedal edema, unilateral swelling - Respiratory Respiratory: Absent: cough, dyspnea, hemoptysis, dyspnea on exertion, wheezing, pain on inspiration, chest congestion, excessive phlegm production - Gastrointestinal Gastrointestinal: Present: constipation, nausea. Absent: abdominal pain, change in bowel habits, diarrhea, dyspepsia, dysphagia, early satiety, hematochezia, melena, vomiting - Musculoskeletal Musculoskeletal: Present: myalgias. Absent: abnormal gait, arthralgias, back pain, joint swelling, limited range of motion, muscle weakness - Integumentary/Breasts Integumentary: Absent: alopecia, erythema, lesions, pruritus, rash, jaundice - Neurological Neurological: Absent: abnormal gait, abnormal movements, abnormal speech, confusion, convulsions, dizziness, focal weakness, frequent falls, headache(s), loss of vision, memory loss, numbness, paresthesias, tremor(s) - Psychiatric Psychiatric: Absent: abnormal sleep pattern, anxiety, depression - Endocrine Endocrine: Absent: cold intolerance, flushing, heat intolerance, palpitations - Hematologic/Lymphatic Hematologic/Lymphatic: Absent: easy bleeding, easy bruising, lymphadenopathy - Allergic/Immunologic Allergic/Immunologic: Absent: urticaria Medications Home Medications Medication Instructions Recorded Confirmed Type Donepezil HCl [Aricept] 10 mg PO HS 12/29/16 12/29/16 History Allergies Allergy/AdvReac Type Severity Reaction Status Date / Time No Known Allergies Allergy Verified 12/29/16 09:53 Results IRU - Labs Labs: Reviewed data from the acute admission. Exam Vital Signs: Temperature 98.3 F 12/31/16 16:22 Pulse Rate 85 12/31/16 16:22 Respiratory Rate 22 12/31/16 16:22 Blood Pressure 162/70 H 12/31/16 16:22 Pulse Oximetry 97 12/31/16 16:22 Height/Weight/BMI: Weight 85.6 kg - Constitutional Present: moderate distress (her distress upon transfers, related to left hip pain.), well nourished, well developed, obese, cooperative - Routine HEENT Exam Head: Present: normocephalic, atraumatic. Absent: cushingoid faces, abrasion, laceration, hematoma Eye: Present: EOMI, PERRL. Absent: conjunctival icterus, scleral injection, periorbital swelling, nystagmus ENT: Present: mucous membranes moist, oropharynx clear - Routine Neck Exam Present: supple, full ROM, trachea midline. Absent: lymphadenopathy, thyromegaly, tenderness, swelling - Routine Chest/Breast/Axilla Exam Chest wall: Absent: tenderness, mass Axillae: Absent: lymphadenopathy, mass - Routine Respiratory Exam Present: CTA bilaterally. Absent: accessory muscle use, decreased breath sounds , prolonged expiratory phase, rales, respiratory distress, rhonchi, stridor, wheezes, crackles, distant breath sounds - Routine Cardiovascular Exam Present: RRR, S1, S2, murmur (she has a grade 2/6 systolic murmur left sternal border. No gallop no click.). Absent: gallop, S3, S4, click, irregular rhythm - Routine Abdominal Exam Present: soft, normoactive bowel sounds, non distended, non tender. Absent: rebound, guarding, firm, rigid, organomegaly, mass, hernia, wound - Routine Extremities Exam Present: no edema, non tender, pulses intact, normal capillary refill. Absent: cyanosis, clubbing - Routine Back/Spine/Pelvis Exam Back/Spine: Present: full ROM. Absent: scoliosis, kyphosis - Routine Skin Exam Present: intact, dry, warm. Absent: cyanosis, erythema, pallor, mottling, petechiae, urticaria, lesions, jaundice - Routine Neurological Exam Present: alert, oriented X3, CN II-XII intact, moving all extremities, normal speech She has had some display of delirium while on the acute care side likely with regard to pain medication usage. Today she is oriented to month, year and who the president is. - Routine Psychiatric Exam Present: normal affect, normal thought process, cooperative, good insight, good judgment, anxious. Absent: depressed Sepsis Assessment - Evaluation Confirmed Suspected Infection: No SIRS Criteria: none IRU A/P (1) Acute blood loss anemia Current visit: Yes Status: Acute Patient is at risk for hypotension and further blood loss. We will monitor her blood count carefully as well as blood pressure and pulse. (2) Delirium Current visit: Yes Status: Acute She has underlying dementia but at times displays further delirium quickly with use of pain medications. This will be monitored carefully and efforts to remain to prevent further falls or injuries. (3) Benign essential hypertension Current visit: Yes Status: Chronic She apparently has not been on any hypertensive medications for a long time. She uses natural remedies. Her blood pressures will be monitored. She is at risk for uncontrolled hypertension in view of the significant pain or hypotension in view of the blood loss anemia. (4) Intertrochanteric fracture of left hip Qualifiers: Encounter type: initial encounter Fracture type: closed Fracture alignment: displaced Qualified Code(s): S72.142A - Displaced intertrochanteric fracture of left femur, initial encounter for closed fracture Current visit: No Status: Acute DVT Prophylaxis: Lovenox Resuscitation Status: Full Code - Course Hospital Course: Urban Fagan MD: - Interventions to Obtain Goals PT Treatment Plan: Balance/Proprioception, Functional Activities, Gait Training , Patient/Family Education OT Treatment Plan: ADL (Basic Care), Balance Training, Pt./Family Education Goals Progress/Modifications: In view of this patient's acute blood loss anemia with hemoglobin down to 8 g percent, she is at risk for lightheadedness, hypotension and further blood loss. In addition she will require close 24 hour rehabilitation nursing monitoring in view of her dementia and episodic delirium related to pain management. An individualized program of occupational therapy and physical therapy along with 24 rehabilitation nursing monitoring will be undertaken with medical supervision.
[2016-12-31] MEDS ORDERED: MORPHINE SULFATE 2mg INJECTION IVP PRN (16:41)
--- NOTE | 2016-12-31 16:47 | IRU 24Hr Post Admit Eval ---
24 Hr Post Admission Physical - Relevant Changes Relevant Changes: No Reviewed: I have reviewed the patient's information and concur with the finding and results of the pre-admission screen. Certification: I certify the patient for rehabilitation. - Patient Condition (1) Acute blood loss anemia Status: Acute Code(s): D62 - Acute posthemorrhagic anemia Classification: Present on IRF Admission, IRF Tx That Should Address Diagnosis, Diagnosis Requiring Medical Follow Up (2) Delirium Status: Acute Code(s): R41.0 - Disorientation, unspecified Classification: IRF Tx That Should Address Diagnosis, Diagnosis Requiring Medical Follow Up (3) Benign essential hypertension Status: Chronic Code(s): I10 - Essential (primary) hypertension Classification: Present on IRF Admission, IRF Tx That Should Address Diagnosis, Diagnosis Requiring Medical Follow Up (4) Intertrochanteric fracture of left hip Status: Acute Qualifiers: Encounter type: initial encounter Fracture type: closed Fracture alignment: displaced Qualified Code(s): S72.142A - Displaced intertrochanteric fracture of left femur, initial encounter for closed fracture Code(s): S72.142A - Displaced intertrochanteric fracture of left femur, initial encounter for closed fracture Classification: Diagnosis Requiring Medical Follow Up (5) Frequent falls Status: Acute Code(s): R29.6 - Repeated falls Classification: Present on IRF Admission, IRF Tx That Should Address Diagnosis, Diagnosis Requiring Medical Follow Up Additional Information: She has had multiple recent falls recently which presented significant risk for further injury and readmission. An intensive personalized therapy program will be designed to help mitigate her risk of repeated falls. - Prior Functional Status Lives With: With Family Residence Type: Apartment/Private Home Assitive Devices: None Prior Functional Status: Indep. at home or school, Used no assistive device - Current Functional Status Current Level of Function: Level of functioning at the present time since the fall is as follows: She is modified independent with eating, requires moderate assistance for grooming, total assistance for bathing, maximum assistance for upper body dressing, total assistance for lower body dressing, toileting, bed/chair/wheelchair transfers and toilet transfers. She is unable to walk at the present time. Failed Alternative Therapy: Arrived from Acute Care Patient Requirements: The patient requires oversight by rehabilitation physician to manage their rehabilitation treatment plan and multidisciplinary approach to care that can only be provided in an IRF and requires a multidisciplinary approach to care, provided by professional PTs, OTs, STs, dieticians, RTs, rehabilitation nurses and is not available in lesser levels of care. Limitations Req: ADL Impairment, Limited Mobility, Cognitive Impairment Physical Therapy Minutes: 90 Occupational Therapy Minutes: 90 Therapy: The patient is to receive therapy at least 5 days a week. - Complications/Comorbidities Impact on Functional Outcomes: Her dementia as well as pain resulting in delirium will negatively impact her functional outcome. Barriers to Discharge: Weakness, Endurance, Comprehension, Pain Control - Plan to Avoid Complications Plan to Avoid Complications: The patient cannot receive this care in a lesser intensive setting such as Correction or Outpatient Therapy due to the patient requiring the following : Due to acute blood loss anemia, she is at risk for hypotension and lightheadedness. She requires close medical supervision to monitor her blood count. She has episodes of delirium related to pain medication use. She requires 24 rehabilitation nursing monitoring to avoid further falls or injuries and to prevent a readmission. .
[2016-12-31] MEDS ORDERED: FALL RISK - PHARMACY CONSULT MC ONE (16:58)
[2016-12-31] MEDS: ONDANSETRON 4 MG/2 ML INJECTION IVP PRN (20:05)
[2016-12-31] MEDS: SENNA + DOCUSATE TABLET PO SCH (20:06)
[2016-12-31] MEDS: HYDROCODONE/APAP 5mg/325mg TABLET PO PRN (20:06)
[2016-12-31] MEDS: NOZIN NASAL SWAB NAS SCH ×2 (20:06→23:22)
[2017-01-01] MEDS: HYDROCODONE/APAP 5mg/325mg TABLET PO PRN ×4 (01:44→19:42)
[2017-01-01] MEDS: NOZIN NASAL SWAB NAS SCH ×3 (05:55→19:48)
[2017-01-01] MEDS: ONDANSETRON 4 MG/2 ML INJECTION IVP PRN (08:04)
[2017-01-01] MEDS: ENOXAPARIN 40 MG/0.4 ML INJECTION SQ SCH (09:07)
[2017-01-01] MEDS: FUROSEMIDE 40 MG TABLET PO SCH (09:08)
[2017-01-01] MEDS: SENNA + DOCUSATE TABLET PO SCH ×2 (09:09→19:48)
[2017-01-01] MEDS: POLYETHYL GLYCOL 3350 17gm PACKET PO SCH (09:09)
[2017-01-01] MEDS ORDERED: NS FLUSH BAG 500ml IV PRN (10:54)
[2017-01-01] MEDS ORDERED: FUROSEMIDE 20 MG/2 ML INJECTION IVP ONE (11:18)
--- NOTE | 2017-01-01 11:37 | IRU Progress Note ---
- Subjective/Serverity of Illness Ms. Cabello continues to complain of nausea but no vomiting. She states that every time something bad happens or she gets upset or agitated she will have nausea. Currently she is not on a PPI so we will add that. In addition, continues to have difficulty with pain management. Morphine was ordered but has not been given. We will discontinue that in view of the risk of further nausea. Appears to tolerate therapy well. Denies any chest pain and denies shortness of breath. She seems to be anxious and clearly has cognitive issues. This morning she is requiring some oxygen. Does not use at home. However in view of her anemia her saturations may be low due to low hematocrit. Update on medical problems we are actively monitoring and managin. Acute blood loss anemia. Hemoglobin did drop further to around 7.9 g percent. Hospitalist service has ordered packed red blood cells. 2. Difficult pain management: Because of previous delirium with use of pain medications. We will discontinue morphine which she has not taken while on the rehabilitation unit. 3. Benign essential hypertension: Her blood pressures are running a bit high which may be related to pain or her anxiety. 4. Nausea: Continues to complain of significant nausea. We will add on a PPI. We will also increase the frequency of ondansetron. Exam Vital Signs: Temperature 98.6 F 01/01/17 08:00 Pulse Rate 67 01/01/17 08:00 Respiratory Rate 18 01/01/17 08:00 Blood Pressure 143/65 H 01/01/17 08:00 Pulse Oximetry 99 01/01/17 08:54 Height/Weight/BMI: Height 1.65 m Weight 85.6 kg Body Mass Index 31.4 Comments: The patient is awake and alert. She told me about her daughter or granddaughter went [employer] and is now a teacher. Not certain if she is otherwise oriented or not. She does appear to be in some acute acute painful distress as well as nauseated and she appears to be anxious. Pupils are equal. The neck is supple. Chest: Clear to auscultation bilaterally. Cor: RR with no gallop, click nor murmur Abd: soft with normo-active bowel sounds. There are no masses, no tenderness and no guarding. Extremities: No current edema is noted. Pulses are present. No cyanosis is present. Results IRU - Labs Labs: reviewed labs IRU A/P (1) Acute blood loss anemia Current visit: Yes Status: Acute Hemoglobin dropped further to 7.9 g percent. Hospitalist service ordered packed red blood cells. Denies lightheadedness. Blood pressures are stable. (2) Delirium Current visit: Yes Status: Acute She has experienced delirium after receiving narcotics. We will keep a close eye on this. This is superimposed upon her chronic dementia. (3) Benign essential hypertension Current visit: Yes Status: Chronic Blood pressures running a bit high which likely are due to pain as well as anxiety. (4) Intertrochanteric fracture of left hip Qualifiers: Encounter type: initial encounter Fracture type: closed Fracture alignment: displaced Qualified Code(s): S72.142A - Displaced intertrochanteric fracture of left femur, initial encounter for closed fracture Current visit: No Status: Acute (5) Frequent falls Current visit: Yes Status: Acute DVT Prophylaxis: Lovenox Resuscitation Status: Full Code - Course Hospital Course: Urban Fagan MD: 01/01/17 11:39 She continues to experience nausea. We'll increase ondansetron to every 4 hours as needed and add on a PPI. Blood has been ordered based on hemoglobin 7.9 g percent. - Interventions to Obtain Goals PT Treatment Plan: Balance/Proprioception, Functional Activities, Gait Training , Patient/Family Education OT Treatment Plan: ADL (Basic Care), Balance Training, Pt./Family Education, Ther. Exercise for ADL Goals Progress/Modifications: Time spent with patient and on floor reviewing data and documentin min Barriers to dismissal: cognition, pain, endurance, nausea Medical decision-making: In view of her chronic nausea (which may well be due to anxiety as well according to her description), we will increase ondansetron to every 4 hours. In addition, we will add on omeprazole. She denies any abdominal pain. We do note the continued acute blood loss anemia at 7.9 g percent (she is receiving blood today). Because of the continued anemia and nausea, this does raise the issue of possible underlying peptic ulcer disease. However she does not have abdominal pain at present. We will check stool for occult blood.
--- NOTE | 2017-01-01 12:24 | Consult Note ---
<Jill Izquierdo - Last Filed: 01/01/17 13:15> Consult Information - Data of Consult Consult date: 01/01/17 Requesting Physician: Urban Fagan MD Primary Care Provider: None Family Provider: None - Consult Narrative Reason for consult: Medical management, anemia History of present illness: Maribell Cabello is a very pleasant 81-year-old female who fell on 12/29/16 at home resulting in a left intertrochanteric femoral fracture. The story as to how she fell varies each time the patient is asked. Initially she reported that she took a sharp turn to avoid a book case and then slipped on her recently waxed hardwood floors. Review of the prior medical records indicates that the patient's daughter, Ana Maria, who lives with the patient, recalled a different story stating that Maribell woke up startled and shouted at Ana Maria's sister, "Get that man out of the house!". They tried to comfort and reassure Maribell but she was agitated and ended up slipping and falling. Ana Maria admits that Maribell occasionally has hallucinations and her memory has been failing for quite some time. On exam, she reports that she slipped on the hardwood floors while walking. She denies any head injury or loss of consciousness. She landed on her left hip resulting in severe pain. She was seen in the ED and found to have a left intertrochanteric femoral fracture. She was admitted to acute care and Dr. Lewis was consulted. She underwent short gamma nail placement on 12/29/16. Following the surgery, she had significant pain and nausea. In addition, she had some behavior changes and some delirium most likely from the pain medications, which has since improved. She also developed acute post op blood loss. She has a history of hypertension which she currently treats with natural remedies. She does not currently have a PCP. She was transferred to IRU for continuation of therapies for strengthening and improvement in her functional abilities. The hospitalist service was consulted for medical management. [facility] Patient Stated Medical History Hypertension, untreated. Constipation. Dementia. Gait instability with frequent falls. Surgical History: Cholecystectomy. Patient believes she has a T&A, hysterectomy and cataracts. Unable to confirm. Family History: Father - at young age, heart problems. Mother - , late 40's, suicide. Numerous brothers and sisters. One brother did have an IL and another from unknown cancer. - Social History Smoking status: Never smoker Substance use type: does not use Alcohol intake frequency: does not drink Housing: house Household members: family Current occupational status: retired Does patient use chewing tobacco?: No Current residence: Apartment/Private Home Social history: PCP - none. Patient lives in home with her daughter. Her several years ago. patient is functionally independent but does have days where she has problems with her memory. Review of Systems All systems PM: 10-point ROS was reviewed, no additional remarkable complaints except - Constitutional Constitutional: Present: fatigue, weakness. Absent: chills, fever(s), headache( s) - EENMT Eyes: Absent: diplopia, pain, photophobia Ears: Absent: ear pain Balance: Absent: falling to one side Nose: Absent: nosebleeds Mouth/Throat: Present: dry mouth. Absent: sore throat, changes in swallowing - Cardiovascular Cardiovascular: Present: dyspnea on exertion, edema. Absent: chest pain, palpitations, syncope, orthopnea Vascular: Present: pedal edema - Respiratory Respiratory: Present: dyspnea on exertion. Absent: cough, dyspnea, hemoptysis, wheezing, pain on inspiration - Gastrointestinal Gastrointestinal: Present: constipation. Absent: abdominal pain, diarrhea, melena, nausea, vomiting - Genitourinary Genitourinary: Absent: dysuria, flank pain, hematuria Menstruation: post menopausal - Musculoskeletal Musculoskeletal: Present: limited range of motion. Absent: back pain, deformity , neck pain - Integumentary/Breasts Integumentary: Absent: rash - Neurological Neurological: Present: confusion, frequent falls, memory loss, weakness. Absent : dizziness, focal weakness, headache(s) - Psychiatric Psychiatric: Present: behavioral changes - Endocrine Endocrine: Absent: flushing, palpitations - Hematologic/Lymphatic Hematologic/Lymphatic: Absent: easy bruising - Allergic/Immunologic Allergic/Immunologic: Present: itchy eyes. Absent: seasonal rhinorrhea Medications Home Medications Medication Instructions Recorded Confirmed Type Donepezil HCl [Aricept] 10 mg PO HS 12/29/16 12/29/16 History Allergies Allergy/AdvReac Type Severity Reaction Status Date / Time No Known Allergies Allergy Verified 12/29/16 09:53 Exam Vital Signs: Temperature 98.6 F 01/01/17 08:00 Pulse Rate 67 01/01/17 08:00 Respiratory Rate 18 01/01/17 08:00 Blood Pressure 143/65 H 01/01/17 08:00 Pulse Oximetry 99 01/01/17 08:54 Height/Weight/BMI: Height 5 ft 5 in Weight 188 lb 11.451 oz Body Mass Index 31.4 - Constitutional Present: no acute distress, well nourished, well developed, obese, cooperative Comments: Patient seen while resting in her room, arouses easily with soft voice stimuli and answers questions appropriately. - Routine HEENT Exam Head: Present: normocephalic, atraumatic Eye: Present: PERRL. Absent: conjunctival icterus ENT: Present: mucous membranes dry, dentition normal (dentures) - Routine Neck Exam Present: supple, full ROM, trachea midline - Routine Chest/Breast/Axilla Exam Chest wall: Absent: tenderness - Routine Respiratory Exam Present: CTA bilaterally. Absent: stridor, wheezes, crackles Comments: 2L NC present with pulse ox 99%. No distress, cough or conversational dyspnea. - Routine Cardiovascular Exam Present: RRR, S1, S2, murmur - Routine Abdominal Exam Present: soft, normoactive bowel sounds, non distended, non tender - Routine Extremities Exam Present: edema (trace), pulses intact Comments: tenderness to left hip; ecchymosis noted; pain with palpation and movement of left hip; bandage clean, dry and intact. - Routine Back/Spine/Pelvis Exam Back/Spine: Absent: vertebral tenderness Comments: limited ROM of back due to left hip pain. - Routine Skin Exam Present: dry, warm. Absent: jaundice Comments: afebrile. - Routine Neurological Exam Present: alert (orientated to person), moving all extremities, hearing grossly intact, normal speech - Routine Psychiatric Exam Present: cooperative Comments: appears fatigued. Results - Labs CBC & Chem 7: 01/01/17 04:20 01/01/17 04:20 Assessment and Plan (1) Debility Current visit: Yes Status: Acute (2) Gait instability Current visit: Yes Status: Acute (3) Acute blood loss anemia Current visit: Yes Status: Acute (4) Status post closed fracture of left hip Current visit: Yes Status: Acute Assessment and Plan: Assessment S/P left intertrochanteric femoral fracture with short gamma nail placement 01/04, Dr. Lewis. Acute blood loss anemia. Generalized weakness and debility, acute. Hypertension, untreated. Constipation. Dementia. Gait instability with frequent falls. Plan - 01/01/17 (Consult) Agree with admission to IRU for continued rehabilitation and pain control per Dr. Fagan. Consult to hospitalist service for medical management. Hemoglobin continues to trend down, currently 7.9. Patient complains of increased shortness of breath and lightheadedness with therapy. Will transfuse 1 unit PRBC now and continue to monitor hemoglobin closely. Patient noted to be hypoxic with therapy with pulse ox at 82% on room air. Placed on 2L NC with improvement. Oxygen as needed to maintain SAO2 >90% and wean as able. Patient denies use of oxygen at home. Will obtain CXR in AM. Continue to encourage incentive spirometry. Blood pressure appears elevated. Continue to monitor closely. May consider addition of Norvasc 2.5mg to lasix 40mg daily. Continue bowel motivation. History of dementia with prior delirium with pain medications. Will consult psychiatry for medication evaluation given history of sundowners like symptoms. Appreciate their time and expertise. Haldol as needed for behaviors. Will recheck CBC and BMP in AM to monitor blood counts, electrolytes and renal function. Upon discharge, patient will need to establish care with a PCP. DVT Prophylaxis: SCD's Resuscitation Status: Full Code - Time spent with patient Time with patient PN: 70 minutes Hospital Course Summary Disclaimer: The visit summary below is not to be considered part of the above Progress Note. Hospital Course: Plan - 01/01/17 (Consult) Agree with admission to IRU for continued rehabilitation and pain control per Dr. Fagan. Consult to hospitalist service for medical management. Hemoglobin continues to trend down, currently 7.9. Patient complains of increased shortness of breath and lightheadedness with therapy. Will transfuse 1 unit PRBC now and continue to monitor hemoglobin closely. Patient noted to be hypoxic with therapy with pulse ox at 82% on room air. Placed on 2L NC with improvement. Oxygen as needed to maintain SAO2 >90% and wean as able. Patient denies use of oxygen at home. Will obtain CXR in AM. Continue to encourage incentive spirometry. Blood pressure appears elevated. Continue to monitor closely. May consider addition of Norvasc 2.5mg to lasix 40mg daily. Continue bowel motivation. History of dementia with prior delirium with pain medications. Will consult psychiatry for medication evaluation given history of sundowners like symptoms. Appreciate their time and expertise. Haldol as needed for behaviors. Will recheck CBC and BMP in AM to monitor blood counts, electrolytes and renal function. Upon discharge, patient will need to establish care with a PCP. <EzioTu Gris - Last Filed: 01/01/17 20:12> Consult Information - Data of Consult Requesting Physician: Urban Fagan MD [facility] Patient Stated Medical History Dental Problems Yes: full set of dentures Hypertension Yes: TAKES [employer] Sleep Apnea No Constipation No Hx Incontinence No Other Musculoskeletal Yes: [facility] Medical History Intertrochanteric fracture of left hip (Acute Medical) Acute blood loss anemia (Acute Medical) Delirium (Acute Medical) Benign essential hypertension (Chronic Medical) Frequent falls (Acute Medical) Debility (Acute Medical) Gait instability (Acute Medical) Status post closed fracture of left hip (Acute Medical) Exam Vital Signs: Temperature 98.3 F 01/01/17 19:28 Pulse Rate 78 01/01/17 19:28 Respiratory Rate 18 01/01/17 19:28 Blood Pressure 143/67 H 01/01/17 19:28 Pulse Oximetry 97 01/01/17 19:28 Height/Weight/BMI: Height 1.65 m Weight 85.6 kg Body Mass Index 31.4 Results - Labs CBC & Chem 7: 01/01/17 04:20 01/01/17 04:20 Assessment and Plan (1) Acute blood loss anemia Current visit: Yes Status: Acute (2) Debility Current visit: Yes Status: Acute (3) Gait instability Current visit: Yes Status: Acute (4) Status post closed fracture of left hip Current visit: Yes Status: Acute Assessment and Plan: Assessment S/P left intertrochanteric femoral fracture with short gamma nail placement 01/04, Dr. Lewis. Acute blood loss anemia. Generalized weakness and debility, acute. Hypertension, untreated. Constipation. Dementia. Gait instability with frequent falls. Have independently interviewed and examined pt. Chart reviewed. Case discussed with my ASSISTANT PRINCIPAL. Care plan developed with my supervision; agree with above. Tired this evening. Pain varies. Some frustration and dispar about the work she has to do, but knows she can get through it. More SOA today. Not feeling cough or congestion. No pain with breathing. Appetite with decrease. Lungs: decreased, no distress CV: regular MSE: awake alert Plan: Transfusion of 1 unit given today as HGB decreased-was trending down on acute. Recheck lab being done as I was leaving patient's room this evening. Monitor volume status with Lasix. Continue pain control. Encourage therapy. Monitor lab. Medically stable for IRU floor activities. Hospital Course Summary Disclaimer: The visit summary below is not to be considered part of the above Progress Note.
[2017-01-01] MEDS: OMEPRAZOLE 20 MG CAPSULE PO SCH (12:33)
[2017-01-02] MEDS: ONDANSETRON 4 MG/2 ML INJECTION IVP PRN ×4 (00:08→12:32)
[2017-01-02] MEDS: SALINE FLUSH 10ml SYRINGE IVF PRN ×3 (00:09→12:32)
[2017-01-02] MEDS: HYDROCODONE/APAP 5mg/325mg TABLET PO PRN ×3 (00:12→20:06)
[2017-01-02] MEDS: NOZIN NASAL SWAB NAS SCH ×4 (00:13→21:24)
[2017-01-02] MEDS: SENNA + DOCUSATE TABLET PO SCH ×3 (00:13→20:07)
[2017-01-02] MEDS: OMEPRAZOLE 20 MG CAPSULE PO SCH ×2 (04:55→06:21)
[2017-01-02] MEDS: ACETAMINOPHEN 325 MG TABLET PO PRN (08:38)
[2017-01-02] MEDS: FUROSEMIDE 40 MG TABLET PO SCH (08:39)
[2017-01-02] MEDS: POLYETHYL GLYCOL 3350 17gm PACKET PO SCH (08:39)
[2017-01-02] MEDS: ENOXAPARIN 40 MG/0.4 ML INJECTION SQ SCH (08:39)
[2017-01-02] MEDS: BISACODYL 10 MG SUPPOSITORY RECTALLY PRN (09:49)
--- NOTE | 2017-01-02 10:45 | XRay Report ---
Indication: SOA PROCEDURE: XR chest 1V: Encounter: Initial Comparison: December 29, 2016 Findings: The lungs are stable in appearance without new focal airspace consolidation. There is no pleural effusion or pneumothorax. The heart size, pulmonary vascularity and mediastinal contours are unchanged. IMPRESSION: Stable appearance of the chest without acute cardiopulmonary disease. .
--- NOTE | 2017-01-02 10:49 | XRay Report ---
Indication: left hip pain PROCEDURE: XR hip LT min 2V: Encounter: Initial Comparison: Pelvis radiograph dated December 29, 2016 and fluoroscopy from the same date Findings: Stable alignment of the internally fixed intertrochanteric left femoral neck fracture. No evidence of hardware loosening or failure. No new fracture or dislocation. The medial cortex of the left femoral head is not well seen on this exposure. Impression: Stable alignment of the internal fixed left femoral neck fracture. .
--- NOTE | 2017-01-02 11:11 | IRU Progress Note ---
- Subjective/Serverity of Illness Ms. Cabello tolerated the blood transfusion yesterday without difficulty. However she continues to have significant problem with pain management. Has severe pain in the left hip and thigh area when she transfers. She is crying in pain. In addition, in association with the pain increased, she has had worsening nausea. She says that this is likely due to the pain. She is upset and agitated. She is trying to work with therapy but yet has a lot of discomfort in the hip. Radiograph of the hip was obtained showing good alignment and no significant abnormalities. Update on medical problems we are actively monitoring and managin. Acute blood loss anemia. Received 1 unit of packed red blood cells. Hemoglobin up to 10 g percent and now 9.7. Blood pressures are stable. 2. Difficult pain management: We'll need to increase the hydrocodone from 5 mg every 4 hours up to 1 or 2 tablets every 4 hours as needed for pain. Unfortunately she continues to have nausea which I think is more related to the pain and anxiety is certainly as I can determine. 3. Benign essential hypertension: Blood pressures continue to run about 160 up to 188 or so. Likely this is related to her pain and anxiety. We will monitor and adjust medications if needed. 4. Nausea: PPI was added yesterday. I think her nausea is related to the pain etc. Denies any abdominal pain. Exam Vital Signs: Temperature 97.7 F 01/02/17 08:05 Pulse Rate 90 01/02/17 08:05 Respiratory Rate 20 01/02/17 08:05 Blood Pressure 166/74 H 01/02/17 08:05 Pulse Oximetry 99 01/02/17 08:05 Height/Weight/BMI: Height 1.65 m Weight 85.6 kg Body Mass Index 31.4 Comments: The patient is awake, alert and oriented. I evaluated her after she had transferred from supine to sit on the bed. She is in a lot of pain at present and is crying. She was quite agitated. Pupils are equal. The neck is supple. Chest: Clear to auscultation bilaterally. Cor: RR with no gallop, click nor murmur Abd: soft with normo-active bowel sounds. There are no masses, no tenderness and no guarding. Extremities: Trace of edema left leg noted. Results IRU - Labs Labs: Reviewed labs. IRU A/P (1) Acute blood loss anemia Current visit: Yes Status: Acute Her anemia is improved. We will monitor for continued blood loss. (2) Delirium Current visit: Yes Status: Acute While she is agitated, I have not noted evidence of delirium while here on rehabilitation. (3) Benign essential hypertension Current visit: Yes Status: Chronic Her blood pressures are running high likely due to the pain and agitation. (4) Intertrochanteric fracture of left hip Qualifiers: Encounter type: initial encounter Fracture type: closed Fracture alignment: displaced Qualified Code(s): S72.142A - Displaced intertrochanteric fracture of left femur, initial encounter for closed fracture Current visit: No Status: Acute Continues to experience significant pain in the left hip. We'll increase hydrocodone up to 1-2 tablets every 4 hours when necessary pain. Review of radiograph shows good alignment. (5) Frequent falls Current visit: Yes Status: Acute DVT Prophylaxis: SCD's Resuscitation Status: Full Code - Course Hospital Course: Urban Fagan MD: 01/01/17 11:39 She continues to experience nausea. We'll increase ondansetron to every 4 hours as needed and add on a PPI. Blood has been ordered based on hemoglobin 7.9 g percent. 01/02/17 11:12 Continues to be quite anxious and agitated with regard to pain. We will increase hydrocodone. Continues to have nausea despite PPI. Repeat hemoglobin improved after transfusion yesterday. - Interventions to Obtain Goals PT Treatment Plan: Balance/Proprioception, Functional Activities, Gait Training , Patient/Family Education OT Treatment Plan: ADL (Basic Care), Balance Training, Pt./Family Education, Ther. Exercise for ADL Goals Progress/Modifications: Time spent with patient and on floor reviewing data and documentin min Barriers to dismissal: Pain, endurance, nausea Medical decision-making: I have reviewed her overall medical situation. She is stable to continue therapy. Continues to complain of substantial pain. I reviewed the radiograph of the left hip which shows good alignment. Has pain with any transfers. Also complains of significant nausea. She does have ondansetron ordered on an as-needed basis. She is also on omeprazole. Has not had abdominal pain. Reviewed her hemoglobin which is improved after the transfusion. Blood pressures are running a bit high and I think this is due to the pain which we are trying to control with the hydrocodone.
--- NOTE | 2017-01-02 11:43 | IRU Plan of Care ---
U Overall Plan of Care - Date Date: 01/02/17 - Patient Impairments (1) Status post closed fracture of left hip Code(s): Z87.81 - Personal history of (healed) traumatic fracture Status: Acute Classification: IRF Tx That Should Address Diagnosis, Diagnosis Requiring Medical Follow Up (2) Debility Code(s): R53.81 - Other malaise Status: Acute Classification: Present on IRF Admission, IRF Tx That Should Address Diagnosis, Diagnosis Requiring Medical Follow Up (3) Gait instability Code(s): R26.81 - Unsteadiness on feet Status: Acute Classification: Present on IRF Admission, IRF Tx That Should Address Diagnosis, Diagnosis Requiring Medical Follow Up (4) Acute blood loss anemia Code(s): D62 - Acute posthemorrhagic anemia Status: Acute Classification: Present on IRF Admission, IRF Tx That Should Address Diagnosis, Diagnosis Requiring Medical Follow Up - Relevant Changes Relevant Changes: No Reviewed: I have reviewed the patient's information and concur with the finding and results of the pre-admission screen. Certification: I certify the patient for rehabilitation. - Medical Prognosis Medical Prognosis: Good Vital Signs: Last Vital Signs Temp 97.7 F 01/02/17 08:05 Pulse 90 01/02/17 08:05 Resp 20 01/02/17 08:05 BP 166/74 H 01/02/17 08:05 Pulse Ox 99 01/02/17 08:05 - Anticipated Interventions Anticipated Interventions: The patient requires inpatient IRF care for PT, OT, and/or ST for residuals remaining from left hip fracture resulting in muscular weakness and strength deficits. An individualized overall plan of care has been developed after careful review of the patient's preadmission screening, post admission physician evaluation and assessments of all therapy disciplines and/or other pertinent clinicians involved in treating the patient. This indicates medical necessity and rehabilitation necessity have been established through a thorough review of all available medical information. ROM Deficit: Left Lower Extremity Strength Deficits: Left Lower Extremity - Current Functional Status Failed Alternative Therapy: Arrived from Acute Care Patient Requires: The patient requires oversight by rehabilitation physician to manage their rehabilitation treatment plan and multidisciplinary approach to care that can only be provided in an IRF and requires a multidisciplinary approach to care, provided by professional PTs, OTs, STs, rehabilitation nurses, and may require STs, dieticians, and RTS. This is not available in lesser levels of care. Physical Therapy Minutes: 90 Occupational Therapy Minutes: 90 Therapy: The patient is to receive therapy at least 5 days a week. - Anticipated LOS/Outcomes Anticipated Functional Outcome: Expected functional improvements include: -- Modified independant to independant ambulation with or without assistive device -- Modified independant to independant ADL's with or without assistive device -- Return to pre-morbid level of mobility -- Maximize level of mobility and ADL's to decrease burden on any caregiver involved with this patient's care Anticipated Length of Stay (days): 7 Anticipated DC Destination: Home, Self Care, Home Health Service Home Safety Plan: The patient will be provided with the development of a Home Safety Plan for return to a home or home-like environment and and to ensure safety post discharge. - Plan to Avoid Complications Barriers to Attaining Goals: Weakness, Balance, Pain Control Plan to Avoid Complications: The patient cannot receive this care in a lesser intensive setting such as Long-Term or Outpatient Therapy due to the patient requiring the following : Close monitoring and management of patient's severe pain in the left hip, monitoring of acute blood loss anemia and therefore monitoring of vital signs carefully, monitoring and management of delirium in response to pain medication which was displayed on the acute care side. .
--- NOTE | 2017-01-02 14:28 | Progress Note ---
Progress Note: Patient complained of frequency of urination and difficulty passing her urine. Tan catheter was placed. We will also check a urinalysis.
--- NOTE | 2017-01-02 14:36 | IRU Team Meeting ---
IRU Team Meeting - Nursing Bladder Assistive Devices Utilized:: Catheter Bladder Management Level of Assist: Total Assistance Bladder Frequency of Accidents: No accidents Bowel Assistive Devices Utilized:: Medication, Bedside Commode Bowel Management Level of Assist: Total Assistance Bowel Frequency of Accidents: No accidents Vital Signs: Vital Signs - 24 hr 01/01/17 19:28 01/02/17 07:38 01/02/17 08:05 Temperature 98.3 F 98.3 F 97.7 F Pulse Rate 78 86 90 Respiratory Rate 18 18 20 Blood Pressure 143/67 H 183/70 H 166/74 H Pulse Oximetry 97 97 99 Current Medications: Acetaminophen (Tylenol) 650 mg PO Q5H PRN PRN Reason: Discomfort Last Admin: 01/02/17 08:38 Dose: 650 mg Hydrocodone Bitart/Acetaminophen ([place]inton 5/325) 1 - 2 tab PO Q4H PRN PRN Reason: Pain Last Admin: 01/02/17 13:48 Dose: 1 tab Bisacodyl (Dulcolax) 10 mg RECTALLY DAILY PRN PRN Reason: Constipation Last Admin: 01/02/17 09:49 Dose: 10 mg Enoxaparin Sodium (Lovenox) 40 mg SQ DAILY [facility] Last Admin: 01/02/17 08:39 Dose: 40 mg Furosemide (Lasix) 40 mg PO DAILY [facility] Last Admin: 01/02/17 08:39 Dose: 40 mg Haloperidol (Haldol) 0.5 mg PO Q6H PRN PRN Reason: Agitation/Restlessness Isopropyl Alcohol (Nozin Nasal Swab) 1 each NELI Q8H ADAM Last Admin: 01/02/17 13:48 Dose: 1 each Magnesium Hydroxide (Mom) 30 ml PO DAILY PRN PRN Reason: Constipation Last Admin: 01/01/17 19:42 Dose: 30 ml Omeprazole (Prilosec) 20 mg PO ACB [facility] Last Admin: 01/02/17 06:21 Dose: Not Given Ondansetron HCl (Zofran) 4 mg IVP Q4H PRN PRN Reason: Nausea &/or vomiting Last Admin: 01/02/17 12:32 Dose: 4 mg Polyethylene Glycol (Miralax) 17 gm PO DAILY [facility] Last Admin: 01/02/17 08:39 Dose: 17 gm Potassium Chloride (K-Dur) 20 meq PO WB [facility] Last Admin: 01/02/17 08:39 Dose: 20 meq Senna/Docusate Sodium (Senna Plus Tablet) 1 tab PO BID ADAM Last Admin: 01/02/17 08:39 Dose: 1 tab Sodium Chloride (Iv Flush) 10 - 80 ml IVF PRN PRN PRN Reason: Flushing Last Admin: 01/02/17 12:32 Dose: 10 ml Sodium Chloride (Normal Saline) 500 ml IV PRN PRN Current Medical Issues: Pain in left hip, nausea, anxiety, anemia, hypertension Comments: I certify that I personally led the interdisciplinary team meeting and agree with comments, barriers and goals indicated. Team meeting was held in the patient's room with the patient and the following family members present: Daughter and granddaughter Ms. Cabello has been plagued by incessant nausea. It seems to be made worse by her pain which is poorly controlled. While on acute she did receive more potent injectable pain medications which made her more delirious. At present she is on hydrocodone 5 mg and this morning dose was increased to take 1-2 every 4 hours as needed for pain. She has been seen by Dr. Lewis and repeat radiograph of the left hip was obtained indicating adequate alignment and no major abnormalities since the surgery. She received a blood transfusion yesterday. Hemoglobin was up to 10 immediately thereafter and today is 9.7. She has been quite constipated. She is using suppository when necessary and this morning had some results. Patient does complain of some urinary frequency and difficulty passing her urine and a Tan was reinserted. We will check a urinalysis. She requires supplemental oxygen. According to her family, she had a poor appetite prior to admission. That has continued at the present time. - Physical Therapy Bed, Chair, Wheelchair Transfer Assist: Maximal Assistance Ambulation Ability: Total Assistance Ambulation Distance: 3 Stair Climbing Ability: Patient Unsafe/Unable Car Transfer Ability: Patient Unsafe/Unable Comments: Progress is slow with therapy due to severe nausea as well as severe pain. She is very anxious secondary to the pain. She has had a limited amount of progress thus far because of this. With pain management hopefully she will be able to improve her activity level. - Occupational Therapy Eating Ability: Independent Grooming Ability: Stand By Assist/Supervision Bathing Ability: Moderate Assistance Upper Body Dressing Ability: Stand By Assist/Supervision Lower Body Dressing Ability: Maximal Assistance Tub Transfer Assist: Patient Unsafe/Unable Toileting Assist: Total Assistance Toilet Transfer Assist: Moderate Assistance Comments: She is cooperative with occupational therapy although does express significant pain with activity. She was able to tolerate sitting up 2 times for about 15 minutes total. Patient requested laid back down in bed as that is the most comfortable position for her. At times she feels like she is going to pass out. Blood pressure however is 171/84. Does display significant anxiety. - Goals Additional goal is control of nausea and pain Physical Therapy Goals: 01/02/17 Goals: 1.) Gait 25 feet minimal assist with use of FWW. 2.) Bed mobility minimal assist Occupational Therapy Goals: 01/02 Goals: 1.) toilet transfer w/ min assist. 2. ) LB dress w/ min assist - Barriers to Discharge Barriers to Attaining Goals: Endurance, Pain Control, Other (anxiety, nausea) - Care Plan Anticipated Length of Stay (days): 7 Anticipated Length of Stay: Reassess in one week Anticipated DC Destination: Home, Self Care, Home Health Service I have led this team conference and agree with the plan.
[2017-01-02] MEDS: METOCLOPRAMIDE 10mg/2ml INJECTION IVP PRN (16:28)
[2017-01-02] MEDS ORDERED: HALOPERIDOL 0.5 MG TABLET PO PRN (18:12)
--- NOTE | 2017-01-02 20:09 | Neuropsychiatric Consult ---
[facility] HPI Date: 01/02/17 Reason for Consultation: Agitation/sundowning Start Time: 15:00 Stop Time: 15:30 History of Present Illness: Patient is a 81-year-old female who was admitted to IRU for recovery after surgery of hip fracture on 12/29/16. Per primary team, "There are varying versions of how she fell. Apparently she fell at home over a door transom. In addition, she has reportedly fallen on several occasions prior to admission with report that she has fallen twice in the 2 days prior to when she came into the hospital. Regarding the current admission, she apparently thought there was a man in her home. She became quite agitated and tripped over the doorway and fell." Patient lives with her daughter, who reported cognitive decline as well as increased agitation/confusion at times even prior to this admission. However, psychiatry was primarily consulted due to increased agitation in evening while in IRU. Patient was seen on 01/02/17 and was fully oriented. She reported feeling sad and frustrated by her recent fall and medical conditions, but denied feeling depressed or symptoms consistent with a depression. She denies any SI, HI, or AVH. She agrees that she is forgetful at times. Overall she is appropriate during interview. Patient's appetite has been quite limited while in IRU and orientation varies per nursing documentation. [facility] Patient Stated Medical History Dental Problems Yes: full set of dentures Hypertension Yes: TAKES [employer] Sleep Apnea No Constipation No Hx Incontinence No Other Musculoskeletal Yes: [facility] Medical History Intertrochanteric fracture of left hip (Acute Medical) Acute blood loss anemia (Acute Medical) Delirium (Acute Medical) Benign essential hypertension (Chronic Medical) Frequent falls (Acute Medical) Debility (Acute Medical) Gait instability (Acute Medical) Status post closed fracture of left hip (Acute Medical) Surgical History: Cholecystectomy. Patient believes she has a T&A, hysterectomy and cataracts. Unable to confirm. Family History: Not pertinent to presentation - Social History Smoking status: Never smoker Household members: caregiver (daughter) Does patient use chewing tobacco?: No Current residence: Apartment/Private Home Review of Systems - Constitutional Constitutional: Present: as per HPI - EENMT Ears: Absent: ear pain Balance: Absent: falling to one side Nose: Absent: nosebleeds Mouth/Throat: Present: dry mouth. Absent: sore throat, changes in swallowing - Cardiovascular Vascular: Present: pedal edema - Genitourinary Menstruation: post menopausal - Musculoskeletal Musculoskeletal: Present: other (hip pain s/p surgery) - Psychiatric Psychiatric: Present: abnormal sleep pattern, behavioral changes, visual hallucinations (unclear whether had prior to admission). Absent: auditory hallucinations, suicidal ideation Mental Status Exam Vitals: Last Vital Signs Temp 97.8 F 01/02/17 16:00 Pulse 87 01/02/17 16:00 Resp 20 01/02/17 16:00 BP 181/69 H 01/02/17 16:00 Pulse Ox 95 01/02/17 16:00 Height: 1.65 m Weight: 85.6 kg - Mental Status Exam Muscle Strength/Tone: Normal Dressing: Other (Hospital gown) Grooming: Fair Attitude: Cooperative Motor Activity: Normal Eye Contact: Good Speech: Normal Volume: Normal Rhythm: Appropriate Rhythm Orientation: Oriented X4 Mood: Other ("frustrated" with medical condition) Affect: Sad (when talking about medical condition - but appears stable overall, not depressed) Rate of Thoughts: Appropriate Rate Thought Organization: Organized Associations: Intact Abstract Reasoning: Intact, able to abstract Thought Content: Somatic Concerns Perception/Psychotic: Perception Normal (questionable history) Language: Naming Intact Fund of Knowledge: Other (decreased) Memory: Poor-recent Suicidal Ideation: Denies Homicidal Ideation: Denies Insight: Limited Judgement: Limited Impulse Control: Fair - Laboratory Result Diagrams: 01/02/17 04:24 01/02/17 04:24 Laboratory Results - last 24 hr 01/01/17 01/02/17 01/02/17 20:06 04:24 04:24 WBC 7.3 7.9 RBC 3.60 L 3.50 L Hgb 10.0 L D 9.7 L Hct 31.3 L D 30.6 L MCV 86.9 87.4 MCH 27.8 27.7 MCHC 31.9 31.7 RDW Std Deviation 46.6 45.6 Plt Count 185 191 MPV 11.4 12.2 Immature Gran % (Auto) 0.7 H 0.8 H Neut % (Auto) 76.8 H 74.9 H Lymph % (Auto) 10.0 L 11.3 L Archer % (Auto) 9.2 H 10.7 H Eos % (Auto) 3.0 2.0 Baso % (Auto) 0.3 0.3 Neut # (Auto) 5.6 5.9 Lymph # (Auto) 0.7 L 0.9 L Archer # (Auto) 0.7 0.8 Eos # (Auto) 0.2 0.2 Baso # (Auto) 0.0 0.0 Abs Immat Gran (auto) 0.05 H 0.06 H Turbidity < 20 Sodium 138 Potassium 4.0 Chloride 100 Carbon Dioxide 31 H Anion Gap 7 BUN 15.0 Creatinine 0.5 L GFR Calculation 119 BUN/Creatinine Ratio 30 H Glucose 109 Calculated Osmolality 268 Calcium 8.8 Icterus Index < 2 Specimen Hemolysis < 15 Ur Collection Type Urine Color Urine Clarity Urine pH Ur Specific [place] Urine Protein Urine Glucose (UA) Urine Ketones Urine Occult Blood Urine Nitrate Urine Bilirubin Urine Urobilinogen Ur Leukocyte Esterase Urine RBC Urine WBC Urine Bacteria Ur Culture Indicated? Stool Occult Blood 01/02/17 01/02/17 13:58 14:48 WBC RBC Hgb Hct MCV MCH MCHC RDW Std Deviation Plt Count MPV Immature Gran % (Auto) Neut % (Auto) Lymph % (Auto) Archer % (Auto) Eos % (Auto) Baso % (Auto) Neut # (Auto) Lymph # (Auto) Archer # (Auto) Eos # (Auto) Baso # (Auto) Abs Immat Gran (auto) Turbidity Sodium Potassium Chloride Carbon Dioxide Anion Gap BUN Creatinine GFR Calculation BUN/Creatinine Ratio Glucose Calculated Osmolality Calcium Icterus Index Specimen Hemolysis Ur Collection Type Urine, torres Urine Color Yellow Urine Clarity Clear Urine pH 8.5 A Ur Specific [place] 1.015 Urine Protein Trace A Urine Glucose (UA) Negative Urine Ketones Negative Urine Occult Blood 3+ A Urine Nitrate Negative Urine Bilirubin Negative Urine Urobilinogen 0.2 Ur Leukocyte Esterase Trace A Urine RBC 3-5 H Urine WBC 5-10 H Urine Bacteria Trace H Ur Culture Indicated? Cult not indicated Stool Occult Blood Negative Assessment and Plan (1) Delirium Problem details: r/o Major neurocognitive disorder Current visit: Yes Status : Acute (2) Intertrochanteric fracture of left hip Qualifiers: Encounter type: initial encounter Fracture type: closed Fracture alignment: displaced Qualified Code(s): S72.142A - Displaced intertrochanteric fracture of left femur, initial encounter for closed fracture Current visit: No Status: Acute Agree with diagnosis of delirium, with several factors that could be contributing. However, it appears that patient's behaviors have improved overall and I suspect narcotic use was an exacerbating factor (though likely necessary after surgery). Minimize narcotics, sedatives, anticholinergic medications as much as possible. Provide reorientation as needed. Cannot state at this point whether VH reported prior to admission could be part of dementia process vs. delirium that was present even prior to admission. Once delirium resolves, could administer SLUMS to further investigate cognitive function. Cognitive decline of some sort would predispose patient to developing delirium. Remote computer system was down for a time today so I did give a verbal order for Haldol 0.5mg PO q HS PRN agitation at bedtime, but discontinued it as I saw that she already has Haldol 0.5mg PO q 6hr PRN available. If agitation/ psychosis were to recur, could schedule at HS if needed or consider Seroquel 25mg PO q HS instead. HOWEVER, I also see that IV Reglan was ordered today and there is a significant interaction between Reglan and antipsychotic medication - so would prefer not to use Haldol until nausea has resolved so that patient is no longer requiring Reglan. Will defer to primary team. Will follow for further agitation/ recommendations if needed.
[2017-01-03] MEDS: HYDROCODONE/APAP 5mg/325mg TABLET PO PRN ×5 (04:33→22:53)
[2017-01-03] MEDS: NOZIN NASAL SWAB NAS SCH ×3 (07:37→21:38)
[2017-01-03] MEDS: OMEPRAZOLE 20 MG CAPSULE PO SCH (07:37)
[2017-01-03] MEDS: METOCLOPRAMIDE 10mg/2ml INJECTION IVP PRN (08:11)
--- NOTE | 2017-01-03 08:32 | Orthopedic Progress Note ---
Date: Subjective/Severity of Illness: Maribell is seen in her room. She is eating breakfast in her bed. She had some Mobile earlier and IV Reglan for nausea. Reports left hip pain and points to the area above her trochanter. Denies groin pain. She is uncertain if it hurts more with wt bearing or when actively moving the leg. Orthopedic Objective PO Vital signs: Temperature 98.0 F 01/03/17 08:00 Pulse Rate 88 01/03/17 08:00 Respiratory Rate 20 01/03/17 08:00 Blood Pressure 177/125 H 01/03/17 08:00 Pulse Oximetry 99 01/03/17 08:00 Height and Weight: Height 5 ft 5 in Weight 188 lb 11.451 oz Body Mass Index 31.4 - Constitutional General Appearance: Present: alert, other (She is not as talkative or interactive as she was on admission. Voice is very quiet and affect seems retracted.) - Respiratory Exam Present: non-labored - Extremities Exam Extremities: Present: pulses intact. Absent: calf tenderness Comments: Swelling of the left thigh. Leg rotation and alignment appear normal. She tolerates me passively moving the hip and report some discomfort with log roll of the leg but does not appear in acute pain. - Hip Exam Hip Exam: Present: alignment normal. Absent: painful PROM (Gentle ROM well tolerated.) - Surgical Site Incision: other (Pt is her clothes. Nursing reports no drainage.) - Neurological Exam Present: intact to light touch, no deficits - Psychiatric Exam Present: alert. Absent: normal affect - Labs Result Diagrams: 01/02/17 04:24 01/02/17 04:24 Abnormal lab results 01/02/17 Range/Units 14:48 Urine pH 8.5 A (5.0-8.0) Urine Protein Trace A (NEGATIVE) Urine Occult Blood 3+ A (NEGATIVE) Ur Leukocyte Esterase Trace A (NEGATIVE) Urine RBC 3-5 H (0-3) /HPF Urine WBC 5-10 H (0-5) /HPF Urine Bacteria Trace H (NEGATIVE) H & H 01/01/17 01/01/17 01/02/17 Range/Units 04:20 20:06 04:24 Hgb 7.9 L 10.0 L D 9.7 L (12-16) GM/DL Hct 25.8 L 31.3 L D 30.6 L (36-46) % Orthopedic Assessment and Plan (1) Intertrochanteric fracture of left hip Status: Acute Qualifiers: Encounter type: initial encounter Fracture type: closed Fracture alignment: displaced Qualified Code(s): S72.142A - Displaced intertrochanteric fracture of left femur, initial encounter for closed fracture Assessment and Plan: S/P short Gamma Nail left hip by Dr Lewis. Exam is WNL and xrays done yesterday are normal. I suspect most of her pain is related to anxiety or similar issues. She is getting IV Reglan and PO narcotics which were both recorded as possible causes of her mental changes by Dr Thorpe's. Will continue to monitor. Hospital Course Summary Disclaimer: The visit summary below is not to be considered part of the above Progress Note. Hospital Course: Plan - 01/01/17 (Consult) Agree with admission to IRU for continued rehabilitation and pain control per Dr. Fagan. Consult to hospitalist service for medical management. Hemoglobin continues to trend down, currently 7.9. Patient complains of increased shortness of breath and lightheadedness with therapy. Will transfuse 1 unit PRBC now and continue to monitor hemoglobin closely. Patient noted to be hypoxic with therapy with pulse ox at 82% on room air. Placed on 2L NC with improvement. Oxygen as needed to maintain SAO2 >90% and wean as able. Patient denies use of oxygen at home. Will obtain CXR in AM. Continue to encourage incentive spirometry. Blood pressure appears elevated. Continue to monitor closely. May consider addition of Norvasc 2.5mg to lasix 40mg daily. Continue bowel motivation. History of dementia with prior delirium with pain medications. Will consult psychiatry for medication evaluation given history of sundowners like symptoms. Appreciate their time and expertise. Haldol as needed for behaviors. Will recheck CBC and BMP in AM to monitor blood counts, electrolytes and renal function. Upon discharge, patient will need to establish care with a PCP.
[2017-01-03] MEDS: SENNA + DOCUSATE TABLET PO SCH ×2 (09:09→20:28)
[2017-01-03] MEDS: FUROSEMIDE 40 MG TABLET PO SCH (09:09)
[2017-01-03] MEDS: POLYETHYL GLYCOL 3350 17gm PACKET PO SCH (09:10)
[2017-01-03] MEDS: ENOXAPARIN 40 MG/0.4 ML INJECTION SQ SCH (09:10)
--- NOTE | 2017-01-03 10:22 | IRU Progress Note ---
- Subjective/Serverity of Illness Maribell was evaluated in her room. She states that the pain continues to be a significant issue when she moves about. Her appetite remains poor. However her nausea is improved. Hospitalists did start IV Reglan every 6 hours as needed for nausea. Dr. Thorpe has again seen the patient regarding some confusion. She believes likely this is delirium related to multiple issues including narcotic usage. Unfortunately have feels though she continues to require the narcotics although we will try to minimize those if possible. She was complaining of dysuria and frequency and inability to empty her bladder. A catheter was placed again yesterday. However we will remove that today and see how she does. Repeat urinalysis was done showing some blood but did not qualify for a culture. She is afebrile. Update on medical problems we are actively monitoring and managin. Acute blood loss anemia. Repeat hemoglobin after blood transfusion show significant improvement. Her blood pressures have been elevated as noted below. No further evidence of blood loss at present. 2. Difficult pain management: She continues to require significant pain medication which admittedly may adversely affect her mental status. However she is crying in pain if she moves around I think we need to control this initially at least. Was seen by or so and repeat films were obtained. Everything appears to be in appropriate alignment. 3. Nausea and anorexia: Her anorexia predated her admission. She denies any abdominal pain and has no tenderness on palpation of the epigastrium. Thus I think it is less likely we are dealing with peptic ulcer disease. Nausea may be improved according to her report this morning. Hospitalists have ordered metoclopramide a IV as needed for the nausea as well. 4. Benign essential hypertension: Her blood pressures are running too high. However it is my belief that these are related to the significant pain that she is experiencing. Exam Vital Signs: Temperature 98.0 F 01/03/17 08:00 Pulse Rate 88 01/03/17 08:00 Respiratory Rate 20 01/03/17 08:00 Blood Pressure 170/85 H 01/03/17 08:38 Pulse Oximetry 94 01/03/17 09:30 Height/Weight/BMI: Height 1.65 m Weight 85.6 kg Body Mass Index 31.4 Comments: The patient is awake, alert and oriented and in no acute distress. Seems to be more comfortable at present. Does not appear to be confused at all. Pupils are equal. The neck is supple. Chest: Clear to auscultation bilaterally. Cor: RR with no gallop, click nor murmur Abd: soft with normo-active bowel sounds. There are no masses, no tenderness and no guarding. Extremities: Trace edema left lower extremity as anticipated. Results IRU - Labs Labs: Reviewed other providers notes, labs etc. IRU A/P (1) Status post closed fracture of left hip Current visit: Yes Status: Acute Continues to experience significant pain with any movement. She is on hydrocodone 5 mg taking 1 or 2 at a time. We'll try to limit the quantity taken in view of her nausea as well as potential delirium. Appreciate hospitalists assistance as well as Dr. Lewis's continued monitoring of this. (2) Debility Current visit: Yes Status: Acute Continues to be extremely weak and debilitated. Pain is a limiting factor in her functional recovery. (3) Gait instability Current visit: Yes Status: Acute (4) Acute blood loss anemia Current visit: Yes Status: Acute Repeat hemoglobin yesterday was stable. No evidence of ongoing blood loss at present. DVT Prophylaxis: SCD's Resuscitation Status: Full Code - Course Hospital Course: Urban Fagan MD: 01/01/17 11:39 She continues to experience nausea. We'll increase ondansetron to every 4 hours as needed and add on a PPI. Blood has been ordered based on hemoglobin 7.9 g percent. 01/02/17 11:12 Continues to be quite anxious and agitated with regard to pain. We will increase hydrocodone. Continues to have nausea despite PPI. Repeat hemoglobin improved after transfusion yesterday. 01/03/17 10:24 Metoclopramide was added for nausea. She states nausea is better. Was seen by Dr. Thorpe again for some delirium. A management is difficult. - Interventions to Obtain Goals PT Treatment Plan: Balance/Proprioception, Functional Activities, Gait Training , Patient/Family Education OT Treatment Plan: ADL (Basic Care), Balance Training, Pt./Family Education, Ther. Exercise for ADL Goals Progress/Modifications: Time spent with patient and on floor reviewing data and documentin min Barriers to dismissal: pain, anxiety, cognition, nausea Medical decision-making: Appreciate assistance of psychiatry, orthopedics and hospitalists. Continues to have significant pain with any movement. We will try to minimize pain medication if possible to avoid delirium and confusion. Her vital signs remained elevated with blood pressures being a bit up which I believe is due to the pain. Her nausea may be a bit better but still difficult to control. Nausea may be related to anxiety plus pain more than the actual pain medication. Patient is quite complex and we are monitoring her carefully.
--- NOTE | 2017-01-03 11:20 | Progress Note ---
- Date 01/03/17 Subjective: Maribell is seen this morning while relaxing in bed. She does report that her nausea is much improved following receiving Reglan this morning. She has been able to eat some yogurt and crackers this morning. She did attempt to get up and ambulate to the main room, however, had significant pain and had to return to her room. She does continue on 2 liters of oxygen. However, sats remained 94- 95%. Tan intact. Objective Vital signs: Temperature 98.0 F 01/03/17 08:00 Pulse Rate 88 01/03/17 08:00 Respiratory Rate 20 01/03/17 08:00 Blood Pressure 170/85 H 01/03/17 08:38 Pulse Oximetry 94 01/03/17 09:30 Height/Weight/BMI: Height 1.65 m Weight 85.6 kg Body Mass Index 31.4 - Constitutional Present: no acute distress, well nourished, well developed - Routine HEENT Exam Eye: Present: EOMI ENT: Present: mucous membranes moist, dentition normal - Routine Respiratory Exam Present: CTA bilaterally. Absent: wheezes - Routine Cardiovascular Exam Present: RRR, S1, S2. Absent: murmur - Routine Abdominal Exam Present: soft, normoactive bowel sounds, non distended. Absent: tenderness - Routine Extremities Exam Present: normal capillary refill Comments: Left hip pain - Routine Skin Exam Present: intact, dry, warm - Routine Neurological Exam Present: alert, CN II-XII intact - Routine Lymphatic Exam Lymphatic: Absent: adenopathy - Routine Psychiatric Exam Present: normal affect, cooperative Results - Labs CBC & Chem 7: 01/02/17 04:24 01/02/17 04:24 Assessment and Plan (1) Acute blood loss anemia Current visit: Yes Status: Acute (2) Debility Current visit: Yes Status: Acute (3) Gait instability Current visit: Yes Status: Acute (4) Status post closed fracture of left hip Current visit: Yes Status: Acute Assessment and Plan: Assessment S/P left intertrochanteric femoral fracture with short gamma nail placement 01/04, Dr. Lewis. Acute blood loss anemia. Generalized weakness and debility, acute. Hypertension, untreated. Constipation. Dementia. Gait instability with frequent falls. Plan Reviewed case with orthopedic team. X-rays reviewed. No acute findings. Case discussed with Dr. Fagan. Will wean down to room air as able. Discontinue Tan catheter. Continue to work on pain control and nausea control. Discussed with nursing staff, minimizing use of Reglan as this does cause interactions with other medications. Will recommend only utilizing Zofran as needed for nausea. Appreciate consultation by Dr. Thorpe given probable delirium. Will continue to follow closely Hospital Course Summary Disclaimer: The visit summary below is not to be considered part of the above Progress Note. Hospital Course: Plan - 01/01/17 (Consult) Agree with admission to IRU for continued rehabilitation and pain control per Dr. Fagan. Consult to hospitalist service for medical management. Hemoglobin continues to trend down, currently 7.9. Patient complains of increased shortness of breath and lightheadedness with therapy. Will transfuse 1 unit PRBC now and continue to monitor hemoglobin closely. Patient noted to be hypoxic with therapy with pulse ox at 82% on room air. Placed on 2L NC with improvement. Oxygen as needed to maintain SAO2 >90% and wean as able. Patient denies use of oxygen at home. Will obtain CXR in AM. Continue to encourage incentive spirometry. Blood pressure appears elevated. Continue to monitor closely. May consider addition of Norvasc 2.5mg to lasix 40mg daily. Continue bowel motivation. History of dementia with prior delirium with pain medications. Will consult psychiatry for medication evaluation given history of sundowners like symptoms. Appreciate their time and expertise. Haldol as needed for behaviors. Will recheck CBC and BMP in AM to monitor blood counts, electrolytes and renal function. Upon discharge, patient will need to establish care with a PCP. 01/03/17 Plan Reviewed case with orthopedic team. X-rays reviewed. No acute findings. Case discussed with Dr. Fagan. Will wean down to room air as able. Discontinue Tan catheter. Continue to work on pain control and nausea control. Discussed with nursing staff, minimizing use of Reglan as this does cause interactions with other medications. Will recommend only utilizing Zofran as needed for nausea. Appreciate consultation by Dr. Thorpe given probable delirium. Will continue to follow closely
[2017-01-03] MEDS: ONDANSETRON 4 MG/2 ML INJECTION IVP PRN ×3 (12:16→22:55)
--- NOTE | 2017-01-03 14:12 | Metabolic Bone Disease Consult ---
Orthopedic Consultation HPI - Consultation Info Consult Date: 01/03/17 Attending Physician: Urban Fagan MD - History of Present Illness Left IT fracture on 12/31/16 at home. Slipped on wased floor [facility] Patient Stated Medical History Dental Problems Yes: full set of dentures Hypertension Yes: [employer] Sleep Apnea No Constipation No Hx Incontinence No Other Musculoskeletal Yes: [facility] Medical History Intertrochanteric fracture of left hip (Acute Medical) Acute blood loss anemia (Acute Medical) Delirium (Acute Medical) r/o Major neurocognitive disorder Benign essential hypertension (Chronic Medical) Frequent falls (Acute Medical) Debility (Acute Medical) Gait instability (Acute Medical) Status post closed fracture of left hip (Acute Medical) Surgical History: Cholecystectomy. Patient believes she has a T&A, hysterectomy and cataracts. Unable to confirm. - Social History Smoking status: Never smoker Does patient use chewing tobacco?: No Current residence: Apartment/Private Home Medications Home Medications Medication Instructions Recorded Confirmed Type Donepezil HCl [Aricept] 10 mg PO HS 12/29/16 12/29/16 History Allergies Allergy/AdvReac Type Severity Reaction Status Date / Time No Known Allergies Allergy Verified 12/29/16 09:53 Orthopedic Exam Vital signs: Temperature 98.0 F 01/03/17 08:00 Pulse Rate 88 01/03/17 08:00 Respiratory Rate 20 01/03/17 08:00 Blood Pressure 170/85 H 01/03/17 08:38 Pulse Oximetry 94 01/03/17 09:30 - Constitutional General Appearance: Present: alert, other (She is not as talkative or interactive as she was on admission. Voice is very quiet and affect seems retracted.) - Respiratory Exam Present: non-labored - Extremities Exam Present: normal capillary refill - Lymphatic Lymphatic: Absent: adenopathy - Neurological Exam Present: intact to light touch, no deficits - Psychiatric Exam Present: alert. Absent: normal affect Results - Labs Labs: Urine 01/02/17 Range/Units 14:48 Urine Color Yellow (YELLOW) Urine Clarity Clear Urine pH 8.5 A (5.0-8.0) Ur Specific [place] 1.015 (1.015-1.025) Urine Protein Trace A (NEGATIVE) Urine Glucose (UA) Negative (NEGATIVE) Impression and Recommendation (1) Osteoporosis Current visit: Yes Qualifiers: Osteoporosis type: unspecified Status: Acute will follow in 2 months to et DEXA. discussed fall prevention and exercise. patient drinks alot of milk so her Ca intake is probably OK. Vit D is 31 which is low normal. (2) Osteopenia Current visit: Yes Status: Acute - Site of Current Fracture Lower Limb: Hip, Thigh-Femoral Shaft - Fracture History History of Fracture Age 50 or Older: No - Risk Factors History of Rheumatoid Arthritis: No Secondary Osteoporosis Due To Condition/Medication: No - Medication Use Nutrtional Supplements: Calcium, Vitamin D - Treatment/Counseling Calcium 1200 mg/day (in divided doses): Yes Vitamin D at least 800-1000 IU/day: Yes Regular Weight Bearing and Muscle Strengthing Exercise: Yes Fall Prevention: Yes Smoking Cessation: Yes Alcohol Comsumption (no more than 2 drinks/day): Yes - Pharmacologic Treatment Recomend Pharmacologic Therapy: No Therapy Not Recommended Due To: Bone Health Assessment Ongoing Pharmacologic Therapy Initiated: No Reason Not Initiating Therapy: Treatment Planned For Future - Bone Mineral Density Testing Was BMD Testing Recommended: Yes BMD Testing: Planned/Scheduled - Written Communication Was Patient Provided With A Letter: Yes Letter Provided To Patient's PCP: No Discharge Status: Discharge To SNF/Rehab Age: 81.10.31 F Height/Weight: Height 1.65 m Weight 82.5 kg Body Mass Index 31.4 - Medications Home Medications: Home Medications Medication Instructions Recorded Confirmed Type Donepezil HCl [Aricept] 10 mg PO HS 12/29/16 12/29/16 History
[2017-01-03 14:21] VITALS: BMI 30.2
[2017-01-03] MEDS: BISACODYL 10 MG SUPPOSITORY RECTALLY PRN (16:41)
[2017-01-04] MEDS: HYDROCODONE/APAP 5mg/325mg TABLET PO PRN ×3 (04:54→22:09)
[2017-01-04] MEDS: OMEPRAZOLE 20 MG CAPSULE PO SCH ×2 (04:57→05:58)
[2017-01-04] MEDS: NOZIN NASAL SWAB NAS SCH ×2 (05:59→16:23)
[2017-01-04] MEDS: ONDANSETRON 4 MG/2 ML INJECTION IVP PRN ×3 (07:19→16:23)
[2017-01-04] MEDS: ENOXAPARIN 40 MG/0.4 ML INJECTION SQ SCH (09:13)
--- NOTE | 2017-01-04 09:13 | XRay Report ---
Indication: Nausea/vomiting PROCEDURE: XR KUB: Encounter: Initial Comparison: None Findings: The visualized lung bases are clear. The bowel gas pattern is nonobstructive and nonspecific. Gas is seen in nondilated small and large bowel to the level of the rectum. Moderate stool is seen throughout the colon. Internally fixed left femoral fracture. Impression: Nonobstructive nonspecific bowel gas pattern. .
[2017-01-04] MEDS: FUROSEMIDE 40 MG TABLET PO SCH (09:56)
[2017-01-04] MEDS: BISACODYL 10 MG SUPPOSITORY RECTALLY PRN (09:56)
[2017-01-04] MEDS: POLYETHYL GLYCOL 3350 17gm PACKET PO SCH (09:56)
[2017-01-04] MEDS: SENNA + DOCUSATE TABLET PO SCH ×2 (09:56→22:13)
[2017-01-04] MEDS: SALINE FLUSH 10ml SYRINGE IVF PRN ×3 (11:55→22:09)
--- NOTE | 2017-01-04 12:36 | Progress Note ---
<Rebeca Jones D - Last Filed: 01/04/17 14:45> - Date 01/04/17 Subjective: RN called to report vomiting bile this am. She's been nauseated for the last few days, last emesis was reportedly on 01/02/17. Last BM on 01/02/17, small. July c/o diffuse abdominal pain. She feels weak but denies dizziness. She denies difficulty breathing or chest pain. Objective Vital signs: Temperature 98.2 F 01/04/17 07:40 Pulse Rate 84 01/04/17 07:40 Respiratory Rate 20 01/04/17 07:40 Blood Pressure 159/72 H 01/04/17 07:40 Pulse Oximetry 92 01/04/17 07:40 Height/Weight/BMI: Height 1.65 m Weight 82.5 kg Body Mass Index 30.2 - Constitutional Present: mild distress, well nourished, well developed - Routine HEENT Exam Head: Present: normocephalic Eye: Absent: conjunctival icterus, scleral injection ENT: Present: mucous membranes dry - Routine Respiratory Exam Present: CTA bilaterally - Routine Cardiovascular Exam Present: RRR, S1, S2, murmur (2/6 systolic) - Routine Abdominal Exam Present: soft, tenderness (mild diffuse tenderness). Absent: normoactive bowel sounds (hypoactive) - Routine Extremities Exam Present: edema (trace, left leg), pulses intact - Routine Skin Exam Present: intact, dry, warm Comments: face is flushed - Routine Neurological Exam Present: alert, CN II-XII intact (grossly), normal speech - Routine Psychiatric Exam Present: cooperative Results - Labs CBC & Chem 7: 01/04/17 08:47 01/04/17 08:47 Assessment and Plan (1) Acute blood loss anemia Current visit: Yes Status: Acute (2) Debility Current visit: Yes Status: Acute (3) Gait instability Current visit: Yes Status: Acute (4) Status post closed fracture of left hip Current visit: Yes Status: Acute Assessment and Plan: Assessment Abdominal pain, vomiting, elevated LFTs, hyperbilirubinemia S/P left intertrochanteric femoral fracture with short gamma nail placement 01/04, Dr. Lewis. Acute blood loss anemia - improving. Generalized weakness and debility, acute. Hypertension, untreated. Constipation. Dementia. Gait instability with frequent falls. Plan Labs assessed - WBC normal, hgb improved to 10.2. K low-normal. LFTs elevated, which is a new findings. Total bili 1.6. lipase nml. Change diet to clears - advance as tolerated KUB personally reviewed - mod amount of stool; no free air or acute abdominal findings otherwise. Increase bowel regimen - suppository this afternoon, before bed, and 1st thing in am; increase Senna Plus to 2 tabs at BID dosing. DVT Prophylaxis: Lovenox GI Prophylaxis: other (omeprazole) Resuscitation Status: Full Code Hospital Course Summary Disclaimer: The visit summary below is not to be considered part of the above Progress Note. Hospital Course: Plan - 01/01/17 (Consult) Agree with admission to IRU for continued rehabilitation and pain control per Dr. Fagan. Consult to hospitalist service for medical management. Hemoglobin continues to trend down, currently 7.9. Patient complains of increased shortness of breath and lightheadedness with therapy. Will transfuse 1 unit PRBC now and continue to monitor hemoglobin closely. Patient noted to be hypoxic with therapy with pulse ox at 82% on room air. Placed on 2L NC with improvement. Oxygen as needed to maintain SAO2 >90% and wean as able. Patient denies use of oxygen at home. Will obtain CXR in AM. Continue to encourage incentive spirometry. Blood pressure appears elevated. Continue to monitor closely. May consider addition of Norvasc 2.5mg to lasix 40mg daily. Continue bowel motivation. History of dementia with prior delirium with pain medications. Will consult psychiatry for medication evaluation given history of sundowners like symptoms. Appreciate their time and expertise. Haldol as needed for behaviors. Will recheck CBC and BMP in AM to monitor blood counts, electrolytes and renal function. Upon discharge, patient will need to establish care with a PCP. 01/03/17 Plan Reviewed case with orthopedic team. X-rays reviewed. No acute findings. Will wean down to room air as able. Discontinue Tan catheter. Continue to work on pain control and nausea control. Discussed with nursing staff, minimizing use of Reglan as this does cause interactions with other medications. Zofran as needed for nausea. Appreciate consultation by Dr. Thorpe given probable delirium. 01/04/17 N/V - Labs assessed - WBC normal, hgb improved to 10.2. K low-normal. LFTs elevated, which is a new findings. Total bili 1.6. lipase nml. Change diet to clears - advance as tolerated KUB personally reviewed - mod amount of stool; no free air or acute abdominal findings otherwise. Increase bowel regimen - suppository this afternoon, before bed, and 1st thing in am; increase Senna Plus to 2 tabs at BID dosing. <Skylar Lua Ángel - Last Filed: 01/04/17 20:42> - Date 01/04/17 Results - Labs CBC & Chem 7: 01/04/17 08:47 01/04/17 08:47 Assessment and Plan (1) Status post closed fracture of left hip Current visit: Yes Status: Acute (2) Acute blood loss anemia Current visit: Yes Status: Acute (3) Debility Current visit: Yes Status: Acute (4) Gait instability Current visit: Yes Status: Acute Assessment and Plan: I have independently evaluated and examined this patient. I reviewed the chart, the patient's history, and the STATION REPAIRER/PA's documented findings as above. We discussed and formulated the assessment and plan as above with additions as below: Mrs. Cabello was nauseated when seen with emesis earlier in the day as described above. When I saw her she complained that her pants were too tight but did not really describe abdominal bloating or distention. She complained of hip pain and was unsure if she's had any pain medicine but record review indicates she's been taking Pine fairly regularly although hadn't had one since 5 AM today. Pine use does not appear to correspond to episodes of nausea as she took Pine frequently yesterday and did not have nausea and had emesis on the with less Pine was used. Patient appeared moderately uncomfortable. Breath sounds were clear. Abdomen was soft and nontender, bowel sounds diminished. KUB reviewed by myself-decreased bowel gas and increased stool present; chest x- ray later reviewed and unremarkable. Liver enzymes reviewed with Rebeca. Agree with change in bowel regimen and reassessment. Hospital Course Summary Disclaimer: The visit summary below is not to be considered part of the above Progress Note.
[2017-01-04] MEDS ORDERED: GI COCKTAIL 30 ML PO ONE (18:42)
--- NOTE | 2017-01-04 18:42 | Progress Note ---
Progress Note: Maribell developed chest pain in the evening. She described it as a sharp pain to the left side of her chest. It was very tender to palpation. She continues to have nausea. She denies SOA or diaphoresis. She didn't eat supper per family report. She also has had belching and reflux symptoms. She had a small bowel movement earlier today. EXAM VS: 160/90; HR 91, R 18; 92% RA; T 97.9 General: A&O, mild distress HEENT: facial flushing improved CV: RRR with systolic murmur; tender to left anterior chest Lungs: CTAB Plan EKG - personally reviewed; sinus with arrhythmia; no ST elevation/depression; nml axis; intravent. conduction delay Trend serial trop; CXR; try GI cocktail. Continue PPI.
[2017-01-04] MEDS ORDERED: BISACODYL 10 MG SUPPOSITORY RECTALLY ONE (21:00)
[2017-01-05] MEDS: NOZIN NASAL SWAB NAS SCH ×5 (00:59→22:33)
[2017-01-05] MEDS: ONDANSETRON ODT 4 MG TABLET PO PRN ×3 (04:36→16:04)
[2017-01-05] MEDS: OMEPRAZOLE 20 MG CAPSULE PO SCH (05:46)
[2017-01-05] MEDS ORDERED: BISACODYL 10 MG SUPPOSITORY RECTALLY ONE (06:00)
[2017-01-05] MEDS: HYDROCODONE/APAP 5mg/325mg TABLET PO PRN ×4 (06:11→20:34)
[2017-01-05] MEDS: FUROSEMIDE 40 MG TABLET PO SCH (10:25)
[2017-01-05] MEDS: SENNA + DOCUSATE TABLET PO SCH ×2 (10:25→20:23)
[2017-01-05] MEDS: POLYETHYL GLYCOL 3350 17gm PACKET PO SCH (10:26)
[2017-01-05] MEDS: ENOXAPARIN 40 MG/0.4 ML INJECTION SQ SCH (10:26)
[2017-01-05] MEDS: BISACODYL 10 MG SUPPOSITORY RECTALLY PRN (11:24)
[2017-01-05] MEDS: ACETAMINOPHEN 325 MG TABLET PO PRN (13:44)
[2017-01-05] MEDS: HALOPERIDOL 0.5 MG TABLET PO PRN (16:26)
[2017-01-06] MEDS: HYDROCODONE/APAP 5mg/325mg TABLET PO PRN ×6 (00:46→20:22)
[2017-01-06] MEDS: ONDANSETRON ODT 4 MG TABLET PO PRN ×5 (05:12→20:23)
[2017-01-06] MEDS: OMEPRAZOLE 20 MG CAPSULE PO SCH ×2 (05:16→07:48)
[2017-01-06] MEDS: NOZIN NASAL SWAB NAS SCH ×3 (05:17→20:24)
[2017-01-06] MEDS: FUROSEMIDE 40 MG TABLET PO SCH (09:04)
[2017-01-06] MEDS: ENOXAPARIN 40 MG/0.4 ML INJECTION SQ SCH (09:04)
[2017-01-06] MEDS: SENNA + DOCUSATE TABLET PO SCH ×2 (09:04→20:22)
[2017-01-06] MEDS: POLYETHYL GLYCOL 3350 17gm PACKET PO SCH (09:05)
--- NOTE | 2017-01-06 10:09 | XRay Report ---
Indication: chest pain PROCEDURE: XR chest 1V: Encounter: Initial Comparison: January 02, 2017 FINDINGS: The lungs are clear. There is no abnormal airspace opacity, pleural effusion or pneumothorax identified. The heart size, pulmonary vasculature and mediastinum are within normal limits. IMPRESSION: No acute cardiopulmonary abnormality. .
--- NOTE | 2017-01-06 11:59 | Progress Note ---
<Jill Izquierdo - Last Filed: 01/06/17 11:54> - Date 01/06/17 Subjective: Maribell is seen today in follow up for her recent left hip fracture with repair. She is seen while resting in bed and complains of left hip pain currently 07/28. She states that she continues to have significant nausea which she believes is from her pain and states that it is worse when she is up and about. No vomiting today. She admits to decreased appetite due to her nausea. Nursing states that she has been ambulating better but still has lots of pain. She denies any other complaints including no chest pain, shortness of breath, fevers , chills, cough, congestion, abdominal pain, dysuria. Aggressive bowel motivation continues and she admits to passing gas with a couple of small stools in the past 2 days. Medical chart was reviewed and indicates that she had some sharp, left chest pain which was worse with palpation on 01/04. Troponins were obtained and were 0.047, 0.037, and 0.021. Labs on 01/05 revealed persistent, but improving anemia with hemoglobin at 9.3. WBC stable at 7.8. Mild hypokalemia at 3.5. AST and ALT trending down at 107 and 114 respectively. UA revealed 3-5 RBC, 5-10 WBC and trace bacteria. Due to her nausea, her diet was changed to clear liquids which can be advanced as tolerated. Objective Vital signs: Temperature 98.3 F 01/06/17 07:51 Pulse Rate 75 01/06/17 07:51 Respiratory Rate 18 01/06/17 07:51 Blood Pressure 158/68 H 01/06/17 07:51 Pulse Oximetry 99 01/06/17 07:51 Height/Weight/BMI: Height 5 ft 5 in Weight 180 lb 1.883 oz Body Mass Index 30.2 Comments: Resting in bed, arouses easily with soft voice; alert and orientated to person and place. - Constitutional Present: no acute distress, well nourished, well developed, thin, cooperative - Routine HEENT Exam Head: Present: normocephalic, atraumatic Eye: Present: PERRL. Absent: conjunctival icterus ENT: Present: mucous membranes dry - Routine Respiratory Exam Present: CTA bilaterally. Absent: rhonchi, stridor, wheezes, crackles - Routine Cardiovascular Exam Present: RRR, S1, S2 - Routine Abdominal Exam Present: soft, normoactive bowel sounds, non tender - Routine Extremities Exam Present: edema (trace bilaterally), pulses intact Comments: SCDs in place; bandage to left hip clean, dry and intact with extensive bruising in various stages noted to lateral and posterior thigh/hip. - Routine Back/Spine/Pelvis Exam Back/Spine: Absent: CVA tenderness, vertebral tenderness Comments: limited ROM of back due to left hip pain with movement. - Routine Musculoskeletal Exam Musculoskeletal: Present: moving extremities well, limited range of motion ( left hip) - Routine Skin Exam Present: intact, dry, warm. Absent: jaundice Comments: afebrile - Routine Neurological Exam Present: alert (orientated to person and place.), moving all extremities, normal speech. Absent: oriented X3 - Routine Lymphatic Exam Lymphatic: Absent: lymphedema - Routine Psychiatric Exam Present: cooperative Results - Labs CBC & Chem 7: 01/05/17 02:21 01/05/17 02:21 Assessment and Plan (1) Acute blood loss anemia Current visit: Yes Status: Acute (2) Debility Current visit: Yes Status: Acute (3) Gait instability Current visit: Yes Status: Acute (4) Status post closed fracture of left hip Current visit: Yes Status: Acute Assessment and Plan: Assessment Abdominal pain, vomiting, elevated LFTs, hyperbilirubinemia S/P left intertrochanteric femoral fracture with short gamma nail placement 01/04, Dr. Lewis. Acute blood loss anemia - improving. Generalized weakness and debility, acute. Hypertension, untreated. Constipation. Dementia. Gait instability with frequent falls. Plan - 01/06/17 (Mirakian) Maribell continues to struggle with significant left hip pain and nausea. She continues to utilize pain medication frequently with little improvement. Concern with narcotic pain medication causing delirium and increased confusion. Continue to attempt pain control, offering non-narcotic options as able. Continue to encourage participation in therapy for strengthening and improvement in functional abilities. Nausea continues though patient believes it is related to her pain control. Continue zofran as needed. Repeat labs on 01/05 revealed WBC normal, hemoglobin 9.3 and mild hypokalemia with potassium at 3.5. Additional dose of KCl 20 meq given on 01/05. Will recheck CMP in Am to monitor electrolytes and renal function. Continue daily KCl 20 mEq. LFTs trending down - AST 107 and ALT 114. Continue to monitor periodically. Continue clear liquid diet and advance as tolerated. Patient complained of sharp left sided chest pain that was worse with palpation on 01/04. Serial troponins were negative (0.047, 0.037, 0.021). Patient denies chest pain or shortness of breath currently. Continue to monitor closely. Persistently elevated blood pressure noted. Currently on lasix 40mg daily. Discussed with Dr. Britt. Will start lisinopril 5mg daily for improved control. Continue to monitor closely. Continue with aggressive bowel motivation. Multiple small bowel movements yesterday. KUB showed constipation. Continue Prilosec for GERD and GI protection. DVT Prophylaxis: SCD's, Lovenox GI Prophylaxis: other (Prilosec) Resuscitation Status: Full Code - Time spent with patient Time with patient PN: 25 minutes Hospital Course Summary Disclaimer: The visit summary below is not to be considered part of the above Progress Note. Hospital Course: Plan - 01/01/17 (Consult) Agree with admission to IRU for continued rehabilitation and pain control per Dr. Fagan. Consult to hospitalist service for medical management. Hemoglobin continues to trend down, currently 7.9. Patient complains of increased shortness of breath and lightheadedness with therapy. Will transfuse 1 unit PRBC now and continue to monitor hemoglobin closely. Patient noted to be hypoxic with therapy with pulse ox at 82% on room air. Placed on 2L NC with improvement. Oxygen as needed to maintain SAO2 >90% and wean as able. Patient denies use of oxygen at home. Will obtain CXR in AM. Continue to encourage incentive spirometry. Blood pressure appears elevated. Continue to monitor closely. May consider addition of Norvasc 2.5mg to lasix 40mg daily. Continue bowel motivation. History of dementia with prior delirium with pain medications. Will consult psychiatry for medication evaluation given history of sundowners like symptoms. Appreciate their time and expertise. Haldol as needed for behaviors. Will recheck CBC and BMP in AM to monitor blood counts, electrolytes and renal function. Upon discharge, patient will need to establish care with a PCP. 01/03/17 Plan Reviewed case with orthopedic team. X-rays reviewed. No acute findings. Will wean down to room air as able. Discontinue Tan catheter. Continue to work on pain control and nausea control. Discussed with nursing staff, minimizing use of Reglan as this does cause interactions with other medications. Zofran as needed for nausea. Appreciate consultation by Dr. Thorpe given probable delirium. 01/04/17 N/V - Labs assessed - WBC normal, hgb improved to 10.2. K low-normal. LFTs elevated, which is a new findings. Total bili 1.6. lipase nml. Change diet to clears - advance as tolerated KUB personally reviewed - mod amount of stool; no free air or acute abdominal findings otherwise. Increase bowel regimen - suppository this afternoon, before bed, and 1st thing in am; increase Senna Plus to 2 tabs at BID dosing. Plan - 01/06/17 (Mirakian) Maribell continues to struggle with significant left hip pain and nausea. She continues to utilize pain medication frequently with little improvement. Concern with narcotic pain medication causing delirium and increased confusion. Continue to attempt pain control, offering non-narcotic options as able. Continue to encourage participation in therapy for strengthening and improvement in functional abilities. Nausea continues though patient believes it is related to her pain control. Continue zofran as needed. Repeat labs on 01/05 revealed WBC normal, hemoglobin 9.3 and mild hypokalemia with potassium at 3.5. Additional dose of KCl 20 meq given on 01/05. Will recheck CMP in Am to monitor electrolytes and renal function. Continue daily KCl 20 mEq. LFTs trending down - AST 107 and ALT 114. Continue to monitor periodically. Continue clear liquid diet and advance as tolerated. Patient complained of sharp left sided chest pain that was worse with palpation on 01/04. Serial troponins were negative (0.047, 0.037, 0.021). Patient denies chest pain or shortness of breath currently. Continue to monitor closely. Persistently elevated blood pressure noted. Currently on lasix 40mg daily. Discussed with Dr. Britt. Will start lisinopril 5mg daily for improved control. Continue to monitor closely. Continue with aggressive bowel motivation. Multiple small bowel movements yesterday. KUB showed constipation. Continue Prilosec for GERD and GI protection. <Danitza Britt D - Last Filed: 01/06/17 12:57> - Date 01/06/17 Objective Vital signs: Temperature 98.3 F 01/06/17 07:51 Pulse Rate 75 01/06/17 07:51 Respiratory Rate 18 01/06/17 07:51 Blood Pressure 158/68 H 01/06/17 07:51 Pulse Oximetry 99 01/06/17 07:51 Height/Weight/BMI: Height 1.65 m Weight 81.7 kg Body Mass Index 30.2 Results - Labs CBC & Chem 7: 01/05/17 02:21 01/05/17 02:21 Assessment and Plan (1) Acute blood loss anemia Current visit: Yes Status: Acute (2) Debility Current visit: Yes Status: Acute (3) Gait instability Current visit: Yes Status: Acute (4) Status post closed fracture of left hip Current visit: Yes Status: Acute Assessment and Plan: Balwinder HAYES 01/06/17 Ms. Cabello was discussed with Jill LANCE. I have reviewed her labs, medications, vital signs and other notes. I agree with the above-mentioned medication changes. We will continue to follow her response clinically as well as monitoring her lab response. I agree with the above PA assessment and plan. Hospital Course Summary Disclaimer: The visit summary below is not to be considered part of the above Progress Note.
[2017-01-06] MEDS: LISINOPRIL 5 MG TABLET PO SCH (13:17)
[2017-01-07] MEDS: NOZIN NASAL SWAB NAS SCH ×5 (01:18→21:00)
[2017-01-07] MEDS: ONDANSETRON ODT 4 MG TABLET PO PRN ×5 (01:24→20:16)
[2017-01-07] MEDS: HYDROCODONE/APAP 5mg/325mg TABLET PO PRN ×2 (01:24→05:59)
[2017-01-07] MEDS: OMEPRAZOLE 20 MG CAPSULE PO SCH (05:58)
[2017-01-07] MEDS: FUROSEMIDE 40 MG TABLET PO SCH (09:34)
[2017-01-07] MEDS: LISINOPRIL 5 MG TABLET PO SCH (09:35)
[2017-01-07] MEDS: POLYETHYL GLYCOL 3350 17gm PACKET PO SCH (10:18)
[2017-01-07] MEDS: SENNA + DOCUSATE TABLET PO SCH ×2 (10:19→20:16)
[2017-01-07] MEDS: ENOXAPARIN 40 MG/0.4 ML INJECTION SQ SCH (11:06)
[2017-01-07] MEDS ORDERED: SCOPOLAMINE 1.5 MG PATCH TD SCH (11:45)
--- NOTE | 2017-01-07 11:50 | IRU Progress Note ---
- Subjective/Serverity of Illness Maribell reports that she feels worse today with regard to nausea. She did have some emesis over the weekend. Also has sharp chest pain which was evaluated by the hospitalist team. Serial troponins were negative 3. Chest radiograph was unremarkable. In addition, she states that the pain is inadequately controlled in her left hip. The accommodation of the debilitation, pain and severe nausea are significant barriers to her functional improvement. She now reports that her nausea is lifelong and occurs fairly frequently at home. She is on a PPI here. She is also on Zofran. Nothing is really made much difference. We will try Transderm scopolamine patch. In addition, we have reviewed all of her medications. The only culprit might be the potassium which we will change to Micro-K and we will use the capsule version to open up and sprinkle on applesauce. Update on medical problems we are actively monitoring and managin. Acute blood loss anemia. Remains stable in this regard. No further evidence of bleeding. 2. Difficult pain management: We will change from hydrocodone to Percocet to see if that will help the pain management. 3. Nausea and anorexia: Nothing much has helped her nausea. She reports that this is a chronic problem for her at home as well. This predated her admission. We will try Transderm scopolamine patch. 4. Benign essential hypertension: Blood pressures remain elevated. I think this is due to the pain and if we can get on top of the pain the blood pressures should improve. Exam Vital Signs: Temperature 98.1 F 01/07/17 08:00 Pulse Rate 76 01/07/17 08:00 Respiratory Rate 18 01/07/17 08:00 Blood Pressure 175/81 H 01/07/17 08:00 Pulse Oximetry 98 01/07/17 08:00 Height/Weight/BMI: Height 1.65 m Weight 81.3 kg Body Mass Index 30.2 Comments: The patient is awake, alert and oriented. She states that she is nauseated. She has the emesis bag available. She appears to be ill. Denies chest pain however. Pupils are equal. The neck is supple. Chest: Clear to auscultation bilaterally. Cor: RR with no gallop, click nor murmur Abd: While her abdomen is soft and she has normoactive bowel sounds, she does report diffuse abdominal tenderness. No rebound is present. Extremities: No edema is noted. Results IRU - Labs Labs: I reviewed the events of the weekend with regard to the chest pain. Reviewed chest x-ray. In addition, reviewed blood work including negative serial troponins and slight elevation of liver enzymes. Alkaline phosphatase is not elevated implying this is not an obstructive process. IRU A/P (1) Status post closed fracture of left hip Current visit: Yes Status: Acute Continues to struggle with significant pain in the left hip despite use of hydrocodone. We will switch to Percocet to see if that provides better pain management. We are aware of her significant nausea which may be a factor as well with the Percocet. (2) Debility Current visit: Yes Status: Acute Continues to have significant debilitation. Her severe pain and nausea have prevented significant progression with therapy. (3) Gait instability Current visit: Yes Status: Acute (4) Acute blood loss anemia Current visit: Yes Status: Acute Has had no clinical evidence of further bleeding. Repeat hemoglobin today is improved at 10 g percent. DVT Prophylaxis: SCD's, Lovenox Resuscitation Status: Full Code - Course Hospital Course: Urban Fagan MD: 01/01/17 11:39 She continues to experience nausea. We'll increase ondansetron to every 4 hours as needed and add on a PPI. Blood has been ordered based on hemoglobin 7.9 g percent. 01/02/17 11:12 Continues to be quite anxious and agitated with regard to pain. We will increase hydrocodone. Continues to have nausea despite PPI. Repeat hemoglobin improved after transfusion yesterday. 01/03/17 10:24 Metoclopramide was added for nausea. She states nausea is better. Was seen by Dr. Thorpe again for some delirium. A management is difficult. 01/07/17 11:54 Nausea is worse today. Pain management is difficult. Changes today include the following: Change from hydrocodone to Percocet, and Transderm scopolamine patch for the nausea, change potassium formulation. - Interventions to Obtain Goals PT Treatment Plan: Balance/Proprioception, Functional Activities, Gait Training , Patient/Family Education OT Treatment Plan: ADL (Basic Care), Balance Training, Pt./Family Education, Ther. Exercise for ADL Goals Progress/Modifications: Time spent with patient and on floor reviewing data and documentin min Barriers to dismissal: Nausea, pain, debilitation, endurance Medical decision-making: Maribell is having a difficult time with chronic nausea. She states this started prior to admission and has been present for many years she states. We have tried numerous interventions. We'll try Transderm scopolamine patch. In addition, we'll change the pain medication from hydrocodone to Percocet due to inadequate pain control. Finally, we'll change the formulation for the potassium in case this helped her nausea. Progress is slow.
[2017-01-07] MEDS: Oxycodone/Acetaminophen 5/325 1 TAB PO PRN ×2 (13:11→20:16)
[2017-01-08] MEDS: Oxycodone/Acetaminophen 5/325 1 TAB PO PRN ×4 (01:43→19:56)
[2017-01-08] MEDS: NOZIN NASAL SWAB NAS SCH ×4 (05:32→22:48)
[2017-01-08] MEDS: OMEPRAZOLE 20 MG CAPSULE PO SCH (05:32)
[2017-01-08] MEDS: SENNA + DOCUSATE TABLET PO SCH ×3 (08:39→22:47)
[2017-01-08] MEDS: POLYETHYL GLYCOL 3350 17gm PACKET PO SCH (08:39)
[2017-01-08] MEDS: ONDANSETRON ODT 4 MG TABLET PO PRN (08:46)
[2017-01-08] MEDS: LISINOPRIL 5 MG TABLET PO SCH (08:46)
[2017-01-08] MEDS: FUROSEMIDE 40 MG TABLET PO SCH (08:46)
[2017-01-08] MEDS: ENOXAPARIN 40 MG/0.4 ML INJECTION SQ SCH (08:46)
--- NOTE | 2017-01-08 11:36 | IRU Progress Note ---
- Subjective/Serverity of Illness Maribell was evaluated in her room on the inpatient rehabilitation unit. She is doing much better. Her nausea is improved. She is not certain if the pain is any better but states that she now has pain in the right hip so perhaps it is improved on the Percocet. She is not overly sedated at the present time. She is cooperative with therapy. In addition, her blood pressures are improved. Likely this indicates improvement in her pain management. Exam Vital Signs: Temperature 98.0 F 01/08/17 08:00 Pulse Rate 90 01/08/17 08:00 Respiratory Rate 20 01/08/17 08:00 Blood Pressure 146/64 H 01/08/17 08:00 Pulse Oximetry 98 01/08/17 08:00 Height/Weight/BMI: Height 1.65 m Weight 80.1 kg Body Mass Index 30.2 Comments: The patient is awake, alert and oriented and in no acute distress. However she does ask some repeated questions. Pupils are equal. The neck is supple. Chest: Clear to auscultation bilaterally. Cor: RR with no gallop, click nor murmur Abd: soft with normo-active bowel sounds. There are no masses, no tenderness and no guarding. Extremities: No edema is noted. IRU A/P (1) Status post closed fracture of left hip Current visit: Yes Status: Acute Pain management appears to be better with regard to use of Percocet. She is not overly sedated with this at present. Seems to be tolerating it well. (2) Debility Current visit: Yes Status: Acute Continues to work with therapy. She is able to ambulate with assistance with front walker. Continues to demonstrate generalized debility but is improving. (3) Gait instability Current visit: Yes Status: Acute (4) Acute blood loss anemia Current visit: Yes Status: Acute DVT Prophylaxis: SCD's, Lovenox Resuscitation Status: Full Code - Course Hospital Course: Urban Fagan MD: 01/01/17 11:39 She continues to experience nausea. We'll increase ondansetron to every 4 hours as needed and add on a PPI. Blood has been ordered based on hemoglobin 7.9 g percent. 01/02/17 11:12 Continues to be quite anxious and agitated with regard to pain. We will increase hydrocodone. Continues to have nausea despite PPI. Repeat hemoglobin improved after transfusion yesterday. 01/03/17 10:24 Metoclopramide was added for nausea. She states nausea is better. Was seen by Dr. Thorpe again for some delirium. A management is difficult. 01/07/17 11:54 Nausea is worse today. Pain management is difficult. Changes today include the following: Change from hydrocodone to Percocet, and Transderm scopolamine patch for the nausea, change potassium formulation. 01/08/17 11:35 Patient is substantially improved regarding her pain management and nausea. She is currently on the Transderm scope patch. Continue therapy. - Interventions to Obtain Goals PT Treatment Plan: Balance/Proprioception, Functional Activities, Gait Training , Patient/Family Education OT Treatment Plan: ADL (Basic Care), Balance Training, Pt./Family Education, Ther. Exercise for ADL
[2017-01-09] MEDS: Oxycodone/Acetaminophen 5/325 1 TAB PO PRN ×5 (00:18→20:51)
[2017-01-09] MEDS: NOZIN NASAL SWAB NAS SCH ×4 (04:53→19:30)
[2017-01-09] MEDS: OMEPRAZOLE 20 MG CAPSULE PO SCH ×2 (04:53→10:46)
[2017-01-09] MEDS: LISINOPRIL 5 MG TABLET PO SCH (08:15)
[2017-01-09] MEDS: FUROSEMIDE 40 MG TABLET PO SCH (08:15)
[2017-01-09] MEDS: POLYETHYL GLYCOL 3350 17gm PACKET PO SCH (08:16)
[2017-01-09] MEDS: SENNA + DOCUSATE TABLET PO SCH (08:18)
--- NOTE | 2017-01-09 09:51 | Progress Note ---
- Date 01/09/17 Subjective: July was seen at breakfast - she occ still has some nausea and is also a little bloated, but overall her GI sx have improved. She has not had any more chest pain. She denies SOA. She denies dizziness. Objective Vital signs: Temperature 98.0 F 01/09/17 07:15 Pulse Rate 73 01/09/17 07:15 Respiratory Rate 18 01/09/17 07:15 Blood Pressure 132/62 01/09/17 07:15 Pulse Oximetry 94 01/09/17 07:15 Height/Weight/BMI: Height 1.65 m Weight 80.1 kg Body Mass Index 30.2 - Constitutional Present: no acute distress, well nourished, well developed - Routine HEENT Exam Head: Present: normocephalic Eye: Absent: conjunctival icterus ENT: Present: mucous membranes moist - Routine Respiratory Exam Present: CTA bilaterally - Routine Cardiovascular Exam Present: RRR, S1, S2 - Routine Abdominal Exam Present: soft, normoactive bowel sounds, non tender, distended (mild) - Routine Extremities Exam Present: edema (trace b/l) - Routine Skin Exam Present: dry, warm - Routine Neurological Exam Present: alert, normal speech. Absent: facial asymmetry - Routine Psychiatric Exam Present: normal affect, normal thought process, cooperative Results - Labs CBC & Chem 7: 01/07/17 07:11 01/07/17 07:11 Assessment and Plan (1) Acute blood loss anemia Current visit: Yes Status: Acute (2) Debility Current visit: Yes Status: Acute (3) Gait instability Current visit: Yes Status: Acute (4) Status post closed fracture of left hip Current visit: Yes Status: Acute Assessment and Plan: Assessment Abdominal pain, vomiting, elevated LFTs, hyperbilirubinemia - improving S/P left intertrochanteric femoral fracture with short gamma nail placement 01/04, Dr. Lewis. Acute blood loss anemia - improving. Generalized weakness and debility, acute. Hypertension, untreated. Constipation. Dementia. Gait instability with frequent falls. Plan Nausea improving; though appetite is poor. Bowels are moving. Continue Zofran ODT PRN and scopolamine patch. If nausea is opoiod induced, could consider stopping Percocet and trying tramadol. Mild hypokalemia has resolved. BP showing improvement since Lisinopril was started on 01/06/17. Hgb improved to 10.2. DVT Prophylaxis: SCD's, Lovenox GI Prophylaxis: other (omeprazole) Resuscitation Status: Full Code Hospital Course Summary Disclaimer: The visit summary below is not to be considered part of the above Progress Note. Hospital Course: Plan - 01/01/17 (Consult) Agree with admission to IRU for continued rehabilitation and pain control per Dr. Fagan. Consult to hospitalist service for medical management. Hemoglobin continues to trend down, currently 7.9. Patient complains of increased shortness of breath and lightheadedness with therapy. Will transfuse 1 unit PRBC now and continue to monitor hemoglobin closely. Patient noted to be hypoxic with therapy with pulse ox at 82% on room air. Placed on 2L NC with improvement. Oxygen as needed to maintain SAO2 >90% and wean as able. Patient denies use of oxygen at home. Will obtain CXR in AM. Continue to encourage incentive spirometry. Blood pressure appears elevated. Continue to monitor closely. May consider addition of Norvasc 2.5mg to lasix 40mg daily. Continue bowel motivation. History of dementia with prior delirium with pain medications. Will consult psychiatry for medication evaluation given history of sundowners like symptoms. Appreciate their time and expertise. Haldol as needed for behaviors. Will recheck CBC and BMP in AM to monitor blood counts, electrolytes and renal function. Upon discharge, patient will need to establish care with a PCP. 01/03/17 Plan Reviewed case with orthopedic team. X-rays reviewed. No acute findings. Will wean down to room air as able. Discontinue Tan catheter. Continue to work on pain control and nausea control. Discussed with nursing staff, minimizing use of Reglan as this does cause interactions with other medications. Zofran as needed for nausea. Appreciate consultation by Dr. Thorpe given probable delirium. 01/04/17 N/V - Labs assessed - WBC normal, hgb improved to 10.2. K low-normal. LFTs elevated, which is a new findings. Total bili 1.6. lipase nml. Change diet to clears - advance as tolerated KUB personally reviewed - mod amount of stool; no free air or acute abdominal findings otherwise. Increase bowel regimen - suppository this afternoon, before bed, and 1st thing in am; increase Senna Plus to 2 tabs at BID dosing. Plan - 01/06/17 ([place]) Maribell continues to struggle with significant left hip pain and nausea. She continues to utilize pain medication frequently with little improvement. Concern with narcotic pain medication causing delirium and increased confusion. Continue to attempt pain control, offering non-narcotic options as able. Continue to encourage participation in therapy for strengthening and improvement in functional abilities. Nausea continues though patient believes it is related to her pain control. Continue zofran as needed. Repeat labs on 01/05 revealed WBC normal, hemoglobin 9.3 and mild hypokalemia with potassium at 3.5. Additional dose of KCl 20 meq given on 01/05. Will recheck CMP in Am to monitor electrolytes and renal function. Continue daily KCl 20 mEq. LFTs trending down - AST 107 and ALT 114. Continue to monitor periodically. Continue clear liquid diet and advance as tolerated. Patient complained of sharp left sided chest pain that was worse with palpation on 01/04. Serial troponins were negative (0.047, 0.037, 0.021). Patient denies chest pain or shortness of breath currently. Continue to monitor closely. Persistently elevated blood pressure noted. Currently on lasix 40mg daily. Discussed with Dr. Britt. Will start lisinopril 5mg daily for improved control. Continue to monitor closely. Continue with aggressive bowel motivation. Multiple small bowel movements yesterday. KUB showed constipation. Continue Prilosec for GERD and GI protection. 01/09/17 Nausea improving; though appetite is poor. Bowels are moving. Continue Zofran ODT PRN and scopolamine patch. If nausea is opoiod induced, could consider stopping Percocet and trying tramadol. Mild hypokalemia has resolved. BP showing improvement since Lisinopril was started on 01/06/17. Hgb improved to 10.2.
[2017-01-09] MEDS: ENOXAPARIN 40 MG/0.4 ML INJECTION SQ SCH (10:00)
--- NOTE | 2017-01-09 11:46 | IRU Progress Note ---
- Subjective/Serverity of Illness Maribell is doing well with therapy. Team meeting today to review from a multidisciplinary standpoint. She believes that she is nearing the time that she could go home. Memory continues to be an issue. Pain is more well controlled at the present time. Having occasional queasiness but not nearly as bad as it was. There is some dry mouth but she is tolerating the Transderm scope patch well. Update on medical problems we are actively monitoring and managin. Acute blood loss anemia. Most recent hemoglobin is 10.2. No evidence of ongoing bleeding. 2. Difficult pain management: Percocet has helped her pain management quite well. Continues to complain of discomfort but certainly improved and less frequent complaints. 3. Nausea and anorexia: Her nausea is improved with the Transderm scope patch. Tolerating it well although does have the expected dry mouth. 4. Benign essential hypertension: Blood pressures are much improved since pain management has improved. Exam Vital Signs: Temperature 98.0 F 01/09/17 07:15 Pulse Rate 73 01/09/17 07:15 Respiratory Rate 18 01/09/17 07:15 Blood Pressure 132/62 01/09/17 07:15 Pulse Oximetry 94 01/09/17 07:15 Height/Weight/BMI: Height 1.65 m Weight 80.4 kg Body Mass Index 30.2 Comments: The patient is awake, alert. She is more cooperative. Uncertain if she is fully oriented. She is in no distress at present. Pupils are equal. The neck is supple. Chest: Clear to auscultation bilaterally. Cor: RR with no gallop, click nor murmur Abd: soft with normo-active bowel sounds. There are no masses, no tenderness and no guarding. Extremities: No edema is noted. IRU A/P (1) Status post closed fracture of left hip Current visit: Yes Status: Acute She is progressing nicely with therapy and pain control has been improved with the Percocet. (2) Debility Current visit: Yes Status: Acute (3) Gait instability Current visit: Yes Status: Acute She is able to ambulate with a front-wheeled walker and is improved. (4) Acute blood loss anemia Current visit: Yes Status: Acute Most recent hemoglobin is stable. No evidence of ongoing bleeding. (5) Nausea Current visit: Yes Status: Acute Nausea persists but is much improved with the use of Transderm-Scop patch. DVT Prophylaxis: SCD's, Lovenox Resuscitation Status: Full Code - Course Hospital Course: Urban Fagan MD: 01/01/17 11:39 She continues to experience nausea. We'll increase ondansetron to every 4 hours as needed and add on a PPI. Blood has been ordered based on hemoglobin 7.9 g percent. 01/02/17 11:12 Continues to be quite anxious and agitated with regard to pain. We will increase hydrocodone. Continues to have nausea despite PPI. Repeat hemoglobin improved after transfusion yesterday. 01/03/17 10:24 Metoclopramide was added for nausea. She states nausea is better. Was seen by Dr. Thorpe again for some delirium. A management is difficult. 01/07/17 11:54 Nausea is worse today. Pain management is difficult. Changes today include the following: Change from hydrocodone to Percocet, and Transderm scopolamine patch for the nausea, change potassium formulation. 01/08/17 11:35 Patient is substantially improved regarding her pain management and nausea. She is currently on the Transderm scope patch. Continue therapy. 01/09/17 11:51 Has improved with therapy. Nausea improved with Transderm-Scop. Pain management better. - Interventions to Obtain Goals PT Treatment Plan: Balance/Proprioception, Functional Activities, Gait Training , Patient/Family Education OT Treatment Plan: ADL (Basic Care), Balance Training, Pt./Family Education, Ther. Exercise for ADL
--- NOTE | 2017-01-09 13:33 | IRU Team Meeting ---
IRU Team Meeting - Nursing Bladder Assistive Devices Utilized:: Absorbent Pad Bladder Management Level of Assist: Modified Independent Bladder Frequency of Accidents: No accidents Bowel Assistive Devices Utilized:: Medication Bowel Management Level of Assist: Maximal Assistance Bowel Frequency of Accidents: No accidents Vital Signs: Vital Signs - 24 hr 01/08/17 14:11 01/08/17 15:52 01/08/17 19:15 Temperature 98 F 98.3 F Pulse Rate 90 81 75 Respiratory Rate 20 20 Blood Pressure 147/68 H 146/66 H 139/63 Pulse Oximetry 97 96 01/09/17 07:15 01/09/17 12:09 Temperature 98.0 F Pulse Rate 73 100 Respiratory Rate 18 18 Blood Pressure 132/62 137/67 Pulse Oximetry 94 99 Current Medications: Acetaminophen (Tylenol) 650 mg PO Q5H PRN PRN Reason: Discomfort Last Admin: 01/05/17 13:44 Dose: 650 mg Bisacodyl (Dulcolax) 10 mg RECTALLY DAILY PRN PRN Reason: Constipation Last Admin: 01/05/17 11:24 Dose: 10 mg Enoxaparin Sodium (Lovenox) 40 mg SQ DAILY [facility] Last Admin: 01/09/17 10:00 Dose: 40 mg Furosemide (Lasix) 40 mg PO DAILY [facility] Last Admin: 01/09/17 08:15 Dose: 40 mg Haloperidol (Haldol) 0.5 mg PO Q6H PRN PRN Reason: Agitation/Restlessness Last Admin: 01/05/17 16:26 Dose: 0.5 mg Isopropyl Alcohol (Nozin Nasal Swab) 1 each NELI Q8H [facility] Last Admin: 01/09/17 08:14 Dose: Not Given Lisinopril (Prinivil) 5 mg PO DAILY [facility] Last Admin: 01/09/17 08:15 Dose: 5 mg Magnesium Hydroxide (Mom) 30 ml PO DAILY PRN PRN Reason: Constipation Last Admin: 01/06/17 09:05 Dose: 30 ml Omeprazole (Prilosec) 20 mg PO ACB [facility] Last Admin: 01/09/17 10:46 Dose: Not Given Ondansetron HCl (Zofran Po) 4 mg PO Q4H PRN PRN Reason: Nausea &/or vomiting Last Admin: 01/08/17 08:46 Dose: 4 mg Oxycodone/Acetaminophen (Percocet 5/325) 1 tab PO Q4H PRN PRN Reason: Pain Last Admin: 01/09/17 10:00 Dose: 1 tab Polyethylene Glycol (Miralax) 17 gm PO DAILY [facility] Last Admin: 01/09/17 08:16 Dose: Not Given Potassium Chloride (Micro-K) 20 meq PO WB [facility] Last Admin: 01/09/17 08:14 Dose: 20 meq Senna/Docusate Sodium (Senna Plus Tablet) 2 tab PO BID [facility] Last Admin: 01/09/17 08:18 Dose: Not Given Sodium Chloride (Iv Flush) 10 - 80 ml IVF PRN PRN PRN Reason: Flushing Last Admin: 01/04/17 22:09 Dose: 30 ml Sodium Chloride (Normal Saline) 500 ml IV PRN PRN Current Medical Issues: nausea, pain management, reduced cognition, hypertension Comments: I certify that I personally led the interdisciplinary team meeting and agree with comments, barriers and goals indicated. Team meeting was held in the patient's room with the patient and the following family members present: two daughters, one granddaughter Junes nausea has been greatly improved over the last couple of days. As a result she has been able to participate with therapy much better. Her blood pressures have been much more well controlled since the pain has been reduced. She is tolerating her Percocet well and this has helped her pain management quite a bit. Continues to have short-term memory issues. - Dietary Her diet has been advanced. She has chronically poor appetite at home according to the patient and her family. Since the diet is been advanced back to regular today she has been eating much better. She is also using mighty shakes. - Physical Therapy Bed, Chair, Wheelchair Transfer Assist: Modified Independent Ambulation Ability: Stand By Assist/Supervision Ambulation Distance: 153 Wheelchair Propulsion Ability: Patient Refuses Stair Climbing Ability: Total Assistance Number of Steps Climbed: 2 Car Transfer Ability: Stand By Assist/Supervision Comments: She is very cooperative with physical therapy and is making good process. She does occasionally complain of nausea which slows down her progress. She is improved over the last couple of days since the nausea in general has been better. She is still working on bed mobility but overall has been improved. Family training is recommended and this will be arranged for early next week. - Occupational Therapy Eating Ability: Independent Grooming Ability: Independent Bathing Ability: Stand By Assist/Supervision Upper Body Dressing Ability: Independent Lower Body Dressing Ability: Stand By Assist/Supervision Tub Transfer Assist: Patient Refuses Toileting Assist: Modified Independent Toilet Transfer Assist: Modified Independent Comments: She is functioning at independent, modified independent or supervision level for all ADLs. She has improved nicely. Does have some sequencing errors at times with lower body dressing and bathing. However with additional encouragement she does correct. She appears to have good safety awareness and overall progression with activity tolerance. - Goals Physical Therapy Goals: 01/02/17 Goals: 1.) Gait 25 feet minimal assist with use of FWW. - met 154 feet Mod I. 2.) Bed mobility minimal assist - met, supervision/mod I. 01/09/17 Goals: 1.) Discharge Planning. 2.) Family Trianing with stairs. Occupational Therapy Goals: 01/02 Goals: 1.) toilet transfer w/ min assist- met (mod I). 2.) LB dress w/ min assist- met (supervision). 01/09 Goals: 1.) LB dress w/ mod I - Barriers to Discharge Barriers to Attaining Goals: Endurance, Pain Control, Other (nausea and anxiety) - Care Plan Anticipated Length of Stay (days): 5 Anticipated DC Destination: Home, Self Care, Home Health Service I have led this team conference and agree with the plan. Interventions/Goals: Patient is doing well. She is at supervision or modified independent for most activities. Family present and questions were addressed. They are agreeable to taking her home on Saturday if stable.
[2017-01-09] MEDS ORDERED: SENNA + DOCUSATE TABLET PO PRN (15:28)
[2017-01-10] MEDS: NOZIN NASAL SWAB NAS SCH ×5 (00:38→21:34)
[2017-01-10] MEDS: Oxycodone/Acetaminophen 5/325 1 TAB PO PRN ×5 (00:42→20:02)
[2017-01-10] MEDS: OMEPRAZOLE 20 MG CAPSULE PO SCH (06:25)
[2017-01-10] MEDS: ENOXAPARIN 40 MG/0.4 ML INJECTION SQ SCH (08:19)
[2017-01-10] MEDS: LISINOPRIL 5 MG TABLET PO SCH (08:19)
[2017-01-10] MEDS: FUROSEMIDE 40 MG TABLET PO SCH (08:19)
[2017-01-10] MEDS: POLYETHYL GLYCOL 3350 17gm PACKET PO SCH (08:19)
[2017-01-10] MEDS ORDERED: SCOPOLAMINE PATCH REMOVAL TD SCH (12:00)
[2017-01-10] MEDS: ACETAMINOPHEN 325 MG TABLET PO PRN (14:00)
[2017-01-11] MEDS: Oxycodone/Acetaminophen 5/325 1 TAB PO PRN ×5 (01:53→22:58)
[2017-01-11] MEDS: OMEPRAZOLE 20 MG CAPSULE PO SCH ×2 (04:07→05:45)
[2017-01-11] MEDS: ONDANSETRON ODT 4 MG TABLET PO PRN ×3 (05:15→12:39)
[2017-01-11] MEDS: NOZIN NASAL SWAB NAS SCH ×4 (06:42→21:23)
[2017-01-11] MEDS: LISINOPRIL 5 MG TABLET PO SCH (08:14)
[2017-01-11] MEDS: FUROSEMIDE 40 MG TABLET PO SCH (08:14)
[2017-01-11] MEDS: POLYETHYL GLYCOL 3350 17gm PACKET PO SCH (08:15)
[2017-01-11] MEDS: ENOXAPARIN 40 MG/0.4 ML INJECTION SQ SCH (09:06)
--- NOTE | 2017-01-11 10:43 | IRU Progress Note ---
- Subjective/Serverity of Illness overall doing well did not sleep well Exam Vital Signs: Temperature 97.6 F 01/11/17 07:30 Pulse Rate 81 01/11/17 07:30 Respiratory Rate 20 01/11/17 07:30 Blood Pressure 140/67 H 01/11/17 07:30 Pulse Oximetry 95 01/11/17 07:30 Height/Weight/BMI: Height 1.65 m Weight 80 kg Body Mass Index 30.2 - Constitutional Present: no acute distress (checked lateral incision-sweeling noted but no drainage-) IRU A/P (1) Osteoporosis Qualifiers: Osteoporosis type: unspecified Current visit: Yes Status: Acute (2) Osteopenia Current visit: Yes Status: Acute DVT Prophylaxis: SCD's, Lovenox Resuscitation Status: Full Code - Course Hospital Course: Urban Fagan MD: 01/01/17 11:39 She continues to experience nausea. We'll increase ondansetron to every 4 hours as needed and add on a PPI. Blood has been ordered based on hemoglobin 7.9 g percent. 01/02/17 11:12 Continues to be quite anxious and agitated with regard to pain. We will increase hydrocodone. Continues to have nausea despite PPI. Repeat hemoglobin improved after transfusion yesterday. 01/03/17 10:24 Metoclopramide was added for nausea. She states nausea is better. Was seen by Dr. Thorpe again for some delirium. A management is difficult. 01/07/17 11:54 Nausea is worse today. Pain management is difficult. Changes today include the following: Change from hydrocodone to Percocet, and Transderm scopolamine patch for the nausea, change potassium formulation. 01/08/17 11:35 Patient is substantially improved regarding her pain management and nausea. She is currently on the Transderm scope patch. Continue therapy. 01/09/17 11:51 Has improved with therapy. Nausea improved with Transderm-Scop. Pain management better. - Interventions to Obtain Goals PT Treatment Plan: Balance/Proprioception, Functional Activities, Gait Training , Patient/Family Education OT Treatment Plan: ADL (Basic Care), Balance Training, Pt./Family Education, Ther. Exercise for ADL Goals Progress/Modifications: obseve lateral hip woulnd for drainage
[2017-01-11] MEDS: SIMETHICONE 125 MG CAPSULE PO SCH ×3 (10:48→20:46)
--- NOTE | 2017-01-11 17:40 | Progress Note ---
- Date 01/11/17 Subjective: Patient was seen today lying in bed. She reports she went outside for therapy today and it was "beautiful." States her hip hurts bad, though, since she walked so much. She is tearful at times when talking about taxes coming due and Kathleen coming up. States "I worry too much, it's my fault, I'll get through it." She declines meds for anxiety or insomnia. Says at home she can usually distract herself w/ other things to help with the anxiety but it is harder when she is here in the hospital. Objective Vital signs: Temperature 98.3 F 01/11/17 16:00 Pulse Rate 94 01/11/17 16:00 Respiratory Rate 16 01/11/17 16:00 Blood Pressure 152/78 H 01/11/17 16:00 Pulse Oximetry 95 01/11/17 16:00 Height/Weight/BMI: Height 1.65 m Weight 79.5 kg Body Mass Index 30.2 - Constitutional Present: no acute distress, well nourished, well developed - Routine HEENT Exam Head: Present: normocephalic - Routine Respiratory Exam Present: CTA bilaterally. Absent: wheezes - Routine Cardiovascular Exam Present: RRR. Absent: murmur - Routine Abdominal Exam Present: soft, normoactive bowel sounds, non distended. Absent: tenderness - Routine Extremities Exam Present: no edema, normal capillary refill - Routine Skin Exam Present: dry, warm - Routine Neurological Exam Present: alert, moving all extremities - Routine Lymphatic Exam Lymphatic: Absent: adenopathy - Routine Psychiatric Exam Present: normal affect, depressed (tearful at times), anxious Results - Labs CBC & Chem 7: 01/07/17 07:11 01/07/17 07:11 Microbiology Results: Microbiology 01/11/17 12:47 Urine, Voided (Cc/notcc) Urine Culture - Preliminary Culture Initiated - Results Pending Assessment and Plan (1) Acute blood loss anemia Current visit: Yes Status: Acute (2) Debility Current visit: Yes Status: Acute (3) Gait instability Current visit: Yes Status: Acute (4) Status post closed fracture of left hip Current visit: Yes Status: Acute Assessment and Plan: Assessment Abdominal pain, vomiting, elevated LFTs, hyperbilirubinemia - improving UTI S/P left intertrochanteric femoral fracture with short gamma nail placement 01/04, Dr. Lewis. Acute blood loss anemia - improving. Generalized weakness and debility, acute. Hypertension Constipation. Dementia. Gait instability with frequent falls. Plan Start cephalexin for UTI. Urine culture is pending. Discussed med for anxiety and/or insomnia. Patient declines at present. Hospital Course Summary Disclaimer: The visit summary below is not to be considered part of the above Progress Note. Hospital Course: Plan - 01/01/17 (Consult) Agree with admission to IRU for continued rehabilitation and pain control per Dr. Fagan. Consult to hospitalist service for medical management. Hemoglobin continues to trend down, currently 7.9. Patient complains of increased shortness of breath and lightheadedness with therapy. Will transfuse 1 unit PRBC now and continue to monitor hemoglobin closely. Patient noted to be hypoxic with therapy with pulse ox at 82% on room air. Placed on 2L NC with improvement. Oxygen as needed to maintain SAO2 >90% and wean as able. Patient denies use of oxygen at home. Will obtain CXR in AM. Continue to encourage incentive spirometry. Blood pressure appears elevated. Continue to monitor closely. May consider addition of Norvasc 2.5mg to lasix 40mg daily. Continue bowel motivation. History of dementia with prior delirium with pain medications. Will consult psychiatry for medication evaluation given history of sundowners like symptoms. Appreciate their time and expertise. Haldol as needed for behaviors. Will recheck CBC and BMP in AM to monitor blood counts, electrolytes and renal function. Upon discharge, patient will need to establish care with a PCP. 01/03/17 Plan Reviewed case with orthopedic team. X-rays reviewed. No acute findings. Will wean down to room air as able. Discontinue Tan catheter. Continue to work on pain control and nausea control. Discussed with nursing staff, minimizing use of Reglan as this does cause interactions with other medications. Zofran as needed for nausea. Appreciate consultation by Dr. Thorpe given probable delirium. 01/04/17 N/V - Labs assessed - WBC normal, hgb improved to 10.2. K low-normal. LFTs elevated, which is a new findings. Total bili 1.6. lipase nml. Change diet to clears - advance as tolerated KUB personally reviewed - mod amount of stool; no free air or acute abdominal findings otherwise. Increase bowel regimen - suppository this afternoon, before bed, and 1st thing in am; increase Senna Plus to 2 tabs at BID dosing. Plan - 01/06/17 (Mirakian) Maribell continues to struggle with significant left hip pain and nausea. She continues to utilize pain medication frequently with little improvement. Concern with narcotic pain medication causing delirium and increased confusion. Continue to attempt pain control, offering non-narcotic options as able. Continue to encourage participation in therapy for strengthening and improvement in functional abilities. Nausea continues though patient believes it is related to her pain control. Continue zofran as needed. Repeat labs on 01/05 revealed WBC normal, hemoglobin 9.3 and mild hypokalemia with potassium at 3.5. Additional dose of KCl 20 meq given on 01/05. Will recheck CMP in Am to monitor electrolytes and renal function. Continue daily KCl 20 mEq. LFTs trending down - AST 107 and ALT 114. Continue to monitor periodically. Continue clear liquid diet and advance as tolerated. Patient complained of sharp left sided chest pain that was worse with palpation on 01/04. Serial troponins were negative (0.047, 0.037, 0.021). Patient denies chest pain or shortness of breath currently. Continue to monitor closely. Persistently elevated blood pressure noted. Currently on lasix 40mg daily. Discussed with Dr. Britt. Will start lisinopril 5mg daily for improved control. Continue to monitor closely. Continue with aggressive bowel motivation. Multiple small bowel movements yesterday. KUB showed constipation. Continue Prilosec for GERD and GI protection. 01/09/17 Nausea improving; though appetite is poor. Bowels are moving. Continue Zofran ODT PRN and scopolamine patch. If nausea is opioid induced, could consider stopping Percocet and trying tramadol. Mild hypokalemia has resolved. BP showing improvement since Lisinopril was started on 01/06/17. Hgb improved to 10.2. 01/11/17 Start cephalexin for UTI. Urine culture is pending. Discussed med for anxiety and/or insomnia. Patient declines at present.
[2017-01-11] MEDS: HALOPERIDOL 0.5 MG TABLET PO PRN (20:46)
[2017-01-12] MEDS: SIMETHICONE 125 MG CAPSULE PO SCH ×4 (03:56→20:16)
[2017-01-12] MEDS: OMEPRAZOLE 20 MG CAPSULE PO SCH ×2 (04:57→06:00)
[2017-01-12] MEDS: Oxycodone/Acetaminophen 5/325 1 TAB PO PRN ×4 (04:57→21:35)
[2017-01-12] MEDS: NOZIN NASAL SWAB NAS SCH ×4 (04:57→21:35)
[2017-01-12] MEDS ORDERED: LISINOPRIL 5 MG TABLET PO SCH (08:09)
--- NOTE | 2017-01-12 08:11 | Progress Note ---
Progress Note: Chart reviewed. BP's still not to goal. Increase lisinopril to 10mg. Repeat labs Saturday.
[2017-01-12] MEDS: ONDANSETRON ODT 4 MG TABLET PO PRN (08:54)
[2017-01-12] MEDS: HALOPERIDOL 0.5 MG TABLET PO PRN ×2 (08:54→14:46)
[2017-01-12] MEDS: ENOXAPARIN 40 MG/0.4 ML INJECTION SQ SCH (08:56)
[2017-01-12] MEDS: FUROSEMIDE 40 MG TABLET PO SCH (08:56)
[2017-01-12] MEDS: POLYETHYL GLYCOL 3350 17gm PACKET PO SCH (08:56)
[2017-01-12] MEDS ORDERED: FALL RISK - PHARMACY CONSULT XX ONE (09:37)
[2017-01-13] MEDS: SIMETHICONE 125 MG CAPSULE PO SCH ×5 (04:05→20:08)
[2017-01-13] MEDS: OMEPRAZOLE 20 MG CAPSULE PO SCH ×2 (04:18→05:51)
[2017-01-13] MEDS: Oxycodone/Acetaminophen 5/325 1 TAB PO PRN ×5 (04:18→23:34)
[2017-01-13] MEDS: NOZIN NASAL SWAB NAS SCH ×3 (07:31→23:20)
[2017-01-13 07:54] VITALS: O2SAT 100
[2017-01-13] MEDS: POLYETHYL GLYCOL 3350 17gm PACKET PO SCH (08:51)
[2017-01-13] MEDS: FUROSEMIDE 40 MG TABLET PO SCH (08:54)
[2017-01-13] MEDS: HALOPERIDOL 0.5 MG TABLET PO PRN ×2 (08:55→23:20)
[2017-01-13] MEDS: ENOXAPARIN 40 MG/0.4 ML INJECTION SQ SCH (08:55)
[2017-01-13] MEDS: LISINOPRIL 10 MG TABLET PO SCH (10:21)
--- NOTE | 2017-01-13 13:40 | Progress Note ---
<Jill Izquierdo - Last Filed: 01/13/17 13:36> - Date 01/13/17 Subjective: Maribell is seen while resting in bed and arouses easily. She admits to feeling very anxious on exam and "just needs to relax" as she anticipates a family visit this afternoon. She states that she feels a little nauseous but thinks its because of her anxiety. She states that she ate a good lunch and denies any chest pain, shortness of breath, abdominal pain, dysuria or diarrhea. She remains on Keflex which was started on 01/11 for a UTI. Hip pain well controlled. Blood pressure slight improved but remains elevated despite increase of lisinopril to 10mg on 01/12. Objective Vital signs: Temperature 97.8 F 01/13/17 07:53 Pulse Rate 74 01/13/17 07:53 Respiratory Rate 16 01/13/17 07:53 Blood Pressure 155/69 H 01/13/17 07:53 Pulse Oximetry 100 01/13/17 07:53 Height/Weight/BMI: Height 5 ft 5 in Weight 176 lb 12.972 oz Body Mass Index 30.2 - Constitutional Present: no acute distress, well nourished, well developed, cooperative Comments: resting in bed and awakes easily with soft touch; becomes anxious when talking about her family coming for a visit this afternoon. - Routine HEENT Exam Head: Present: normocephalic, atraumatic Eye: Present: PERRL. Absent: conjunctival icterus ENT: Present: mucous membranes moist - Routine Respiratory Exam Present: CTA bilaterally. Absent: rhonchi, stridor, wheezes, crackles - Routine Cardiovascular Exam Present: RRR, S1, S2 - Routine Abdominal Exam Present: soft, normoactive bowel sounds, non distended, non tender. Absent: rebound, guarding - Routine Extremities Exam Present: edema (trace-1+), pulses intact. Absent: calf tenderness - Routine Back/Spine/Pelvis Exam Back/Spine: Present: full ROM. Absent: vertebral tenderness - Routine Musculoskeletal Exam Musculoskeletal: Present: moving extremities well - Routine Skin Exam Present: intact, dry, warm Comments: afebrile - Routine Neurological Exam Present: alert, moving all extremities, normal speech - Routine Lymphatic Exam Lymphatic: Absent: lymphedema - Routine Psychiatric Exam Present: cooperative, anxious Results - Labs CBC & Chem 7: 01/12/17 04:52 01/12/17 04:52 Microbiology Results: Microbiology 01/11/17 12:47 Urine, Voided (Cc/notcc) Urine Culture - Final Escherichia coli Assessment and Plan (1) Acute blood loss anemia Current visit: Yes Status: Acute (2) Debility Current visit: Yes Status: Acute (3) Gait instability Current visit: Yes Status: Acute (4) Status post closed fracture of left hip Current visit: Yes Status: Acute Assessment and Plan: Assessment Abdominal pain, vomiting, elevated LFTs, hyperbilirubinemia - improving UTI S/P left intertrochanteric femoral fracture with short gamma nail placement 01/04, Dr. Lewis. Acute blood loss anemia - improving. Generalized weakness and debility, acute. Hypertension Constipation. Dementia. Gait instability with frequent falls. Plan - 01/13/17 Patient continues to struggle with anxiety which contributes to her nausea. She reports therapy is going well overall and she feels like she is making progress. Continue to encourage participation in therapies. Keflex started on 01/11 for UTI. Culture reveals E.coli sensitive to Keflex. Will continue until 01/18. Patient denies any dysuria or abdominal pain. Patient continues to decline medication for anxiety. Continue to monitor closely and provide safe and supportive environment. Will provide Xanax .25mg PRN for anxiety and insomnia. Blood pressure remains elevated despite increase in lisinopril to 10mg on . Continue to monitor closely. May consider addition of Norvasc for additional control. DVT Prophylaxis: SCD's Resuscitation Status: Full Code - Time spent with patient Time with patient PN: 25 minutes Hospital Course Summary Disclaimer: The visit summary below is not to be considered part of the above Progress Note. Hospital Course: Plan - 01/01/17 (Consult) Agree with admission to IRU for continued rehabilitation and pain control per Dr. Fagan. Consult to hospitalist service for medical management. Hemoglobin continues to trend down, currently 7.9. Patient complains of increased shortness of breath and lightheadedness with therapy. Will transfuse 1 unit PRBC now and continue to monitor hemoglobin closely. Patient noted to be hypoxic with therapy with pulse ox at 82% on room air. Placed on 2L NC with improvement. Oxygen as needed to maintain SAO2 >90% and wean as able. Patient denies use of oxygen at home. Will obtain CXR in AM. Continue to encourage incentive spirometry. Blood pressure appears elevated. Continue to monitor closely. May consider addition of Norvasc 2.5mg to lasix 40mg daily. Continue bowel motivation. History of dementia with prior delirium with pain medications. Will consult psychiatry for medication evaluation given history of sundowners like symptoms. Appreciate their time and expertise. Haldol as needed for behaviors. Will recheck CBC and BMP in AM to monitor blood counts, electrolytes and renal function. Upon discharge, patient will need to establish care with a PCP. 01/03/17 Plan Reviewed case with orthopedic team. X-rays reviewed. No acute findings. Will wean down to room air as able. Discontinue Tan catheter. Continue to work on pain control and nausea control. Discussed with nursing staff, minimizing use of Reglan as this does cause interactions with other medications. Zofran as needed for nausea. Appreciate consultation by Dr. Thorpe given probable delirium. 01/04/17 N/V - Labs assessed - WBC normal, hgb improved to 10.2. K low-normal. LFTs elevated, which is a new findings. Total bili 1.6. lipase nml. Change diet to clears - advance as tolerated KUB personally reviewed - mod amount of stool; no free air or acute abdominal findings otherwise. Increase bowel regimen - suppository this afternoon, before bed, and 1st thing in am; increase Senna Plus to 2 tabs at BID dosing. Plan - 01/06/17 (Mirakian) Maribell continues to struggle with significant left hip pain and nausea. She continues to utilize pain medication frequently with little improvement. Concern with narcotic pain medication causing delirium and increased confusion. Continue to attempt pain control, offering non-narcotic options as able. Continue to encourage participation in therapy for strengthening and improvement in functional abilities. Nausea continues though patient believes it is related to her pain control. Continue zofran as needed. Repeat labs on 01/05 revealed WBC normal, hemoglobin 9.3 and mild hypokalemia with potassium at 3.5. Additional dose of KCl 20 meq given on 01/05. Will recheck CMP in Am to monitor electrolytes and renal function. Continue daily KCl 20 mEq. LFTs trending down - AST 107 and ALT 114. Continue to monitor periodically. Continue clear liquid diet and advance as tolerated. Patient complained of sharp left sided chest pain that was worse with palpation on 01/04. Serial troponins were negative (0.047, 0.037, 0.021). Patient denies chest pain or shortness of breath currently. Continue to monitor closely. Persistently elevated blood pressure noted. Currently on lasix 40mg daily. Discussed with Dr. Britt. Will start lisinopril 5mg daily for improved control. Continue to monitor closely. Continue with aggressive bowel motivation. Multiple small bowel movements yesterday. KUB showed constipation. Continue Prilosec for GERD and GI protection. 01/09/17 Nausea improving; though appetite is poor. Bowels are moving. Continue Zofran ODT PRN and scopolamine patch. If nausea is opioid induced, could consider stopping Percocet and trying tramadol. Mild hypokalemia has resolved. BP showing improvement since Lisinopril was started on 01/06/17. Hgb improved to 10.2. 01/11/17 Start cephalexin for UTI. Urine culture is pending. Discussed med for anxiety and/or insomnia. Patient declines at present. Plan - 01/13/17 Patient continues to struggle with anxiety which contributes to her nausea. She reports therapy is going well overall and she feels like she is making progress. Continue to encourage participation in therapies. Keflex started on 01/11 for UTI. Culture reveals E.coli sensitive to Keflex. Will continue until 01/18. Patient denies any dysuria or abdominal pain. Patient continues to decline medication for anxiety. Continue to monitor closely and provide safe and supportive environment. Will provide Xanax .25mg PRN for anxiety and insomnia. Blood pressure remains elevated despite increase in lisinopril to 10mg on . Continue to monitor closely. May consider addition of Norvasc for additional control. <uT Holguin D - Last Filed: 01/13/17 18:13> - Date 01/13/17 Objective Vital signs: Temperature 97.6 F 01/13/17 16:00 Pulse Rate 71 01/13/17 16:00 Respiratory Rate 14 01/13/17 16:00 Blood Pressure 145/58 H 01/13/17 16:00 Pulse Oximetry 100 01/13/17 16:00 Height/Weight/BMI: Height 1.65 m Weight 80.2 kg Body Mass Index 30.2 Results - Labs CBC & Chem 7: 01/12/17 04:52 01/12/17 04:52 Microbiology Results: Microbiology 01/11/17 12:47 Urine, Voided (Cc/notcc) Urine Culture - Final Escherichia coli Assessment and Plan (1) Acute blood loss anemia Current visit: Yes Status: Acute (2) Debility Current visit: Yes Status: Acute (3) Gait instability Current visit: Yes Status: Acute (4) Status post closed fracture of left hip Current visit: Yes Status: Acute Assessment and Plan: Assessment Abdominal pain, vomiting, elevated LFTs, hyperbilirubinemia - improving UTI S/P left intertrochanteric femoral fracture with short gamma nail placement 01/04, Dr. Lewis. Acute blood loss anemia - improving. Generalized weakness and debility, acute. Hypertension Constipation. Dementia. Gait instability with frequent falls. Have independently interviewed and examined pt. Chart reviewed. Case discussed with my LOSS PREVENTION/SAFETY DISTRICT MANAGER. Care plan developed with my supervision; agree with above. Doing okay. This evening, did get up from table and started walking back to her room without nursing assistance; did well, but made nurses move fast to come be with her. Appears to navigate well with walker. Lungs: clear CV: regular MSE: awake alert Plan; Continue with cephalexin for urinary coverage. Encourage therapy. Safety concern with her dementia and gait instability. Monitor blood pressure. Recheck lab in am due to anemia and medication use. Medically stable for IRU floor activities. Hospital Course Summary Disclaimer: The visit summary below is not to be considered part of the above Progress Note.
[2017-01-13] MEDS ORDERED: ALPRAZolam 0.25 MG TABLET PO PRN (13:45)
[2017-01-14] MEDS: SIMETHICONE 125 MG CAPSULE PO SCH ×2 (04:49→08:37)
[2017-01-14] MEDS: Oxycodone/Acetaminophen 5/325 1 TAB PO PRN ×2 (04:57→10:40)
[2017-01-14] MEDS: OMEPRAZOLE 20 MG CAPSULE PO SCH ×2 (05:00→06:11)
[2017-01-14] MEDS: NOZIN NASAL SWAB NAS SCH (06:10)
[2017-01-14 07:21] VITALS: BP 153/72; PULSE 80; RESP 18; TEMP 98.1
[2017-01-14] MEDS: FUROSEMIDE 40 MG TABLET PO SCH (08:37)
[2017-01-14] MEDS: LISINOPRIL 10 MG TABLET PO SCH (08:38)
[2017-01-14] MEDS: ENOXAPARIN 40 MG/0.4 ML INJECTION SQ SCH (08:40)
[2017-01-14] MEDS: POLYETHYL GLYCOL 3350 17gm PACKET PO SCH (08:44)
--- NOTE | 2017-01-14 10:58 | IRU Progress Note ---
- Subjective/Serverity of Illness Maribell is very cheerful and positive this morning. She is anticipating going home today and is looking forward to this. Has only rare episodes of queasiness but no josé luis nausea nor vomiting. Denies any chest pain or shortness of breath. Reports that her pain is adequately controlled at present with regard to the hip. Update on medical problems we are actively monitoring and managin. Acute blood loss anemia. Hematoma stable at 10.3. No evidence of ongoing blood loss at present. 2. Difficult pain management: Pain appears to be adequately controlled with use of Percocet. Unfortunate she is taking about 6 per day. We will encourage her to cut back if at all possible. 3. Nausea and anorexia: Transderm scope was discontinued due to concerns about heart rate. She reports that her nausea is adequately controlled. Certainly is correlating with anxiety as well. 4. Benign essential hypertension: Lisinopril was increased. Blood pressures running a bit high. Exam Vital Signs: Temperature 98.1 F 01/14/17 07:20 Pulse Rate 80 01/14/17 07:20 Respiratory Rate 18 01/14/17 07:20 Blood Pressure 153/72 H 01/14/17 07:20 Pulse Oximetry 100 01/13/17 19:54 Height/Weight/BMI: Height 1.65 m Weight 80 kg Body Mass Index 30.2 Results IRU - Labs Labs: Reviewed other providers notes as well as labs etc. IRU A/P (1) Status post closed fracture of left hip Current visit: Yes Status: Acute She is requiring 6 Percocet daily for pain management. She has progressed nicely with therapy and plans to go home today. (2) Debility Current visit: Yes Status: Acute Her debilitation is improved with therapy. (3) Gait instability Current visit: Yes Status: Acute (4) Acute blood loss anemia Current visit: Yes Status: Acute Hemoglobin is stable. (5) Nausea Current visit: Yes Status: Acute DVT Prophylaxis: SCD's Resuscitation Status: Full Code - Course Hospital Course: Urban Fagan MD: 01/01/17 11:39 She continues to experience nausea. We'll increase ondansetron to every 4 hours as needed and add on a PPI. Blood has been ordered based on hemoglobin 7.9 g percent. 01/02/17 11:12 Continues to be quite anxious and agitated with regard to pain. We will increase hydrocodone. Continues to have nausea despite PPI. Repeat hemoglobin improved after transfusion yesterday. 01/03/17 10:24 Metoclopramide was added for nausea. She states nausea is better. Was seen by Dr. Thorpe again for some delirium. A management is difficult. 01/07/17 11:54 Nausea is worse today. Pain management is difficult. Changes today include the following: Change from hydrocodone to Percocet, and Transderm scopolamine patch for the nausea, change potassium formulation. 01/08/17 11:35 Patient is substantially improved regarding her pain management and nausea. She is currently on the Transderm scope patch. Continue therapy. 01/09/17 11:51 Has improved with therapy. Nausea improved with Transderm-Scop. Pain management better. 01/14/17 10:58 It is anticipated the patient will return to her home today. She is safe for this transfer. - Interventions to Obtain Goals PT Treatment Plan: Balance/Proprioception, Functional Activities, Gait Training , Patient/Family Education OT Treatment Plan: ADL (Basic Care), Balance Training, Pt./Family Education, Ther. Exercise for ADL
--- NOTE | 2017-01-14 14:01 | Discharge Summary ---
Discharge Information Date of admission: 12/31/16 16:09 Anticipated date of discharge: 01/14/17 Attending Physician: Urban Fagan MD Consults: 12/31/16 16:41 Physician Consult [CONS] Routine Consulting Provider: Arun Shankar Reason For Exam: metabolic bone consult Ordering Provider has Notified Filtration Supervisor: No Physician Consult [CONS] Routine Consulting Provider: Ronaldo Lewis Reason For Exam: left hip fracture Ordering Provider has Notified Filtration Supervisor: Yes 12/31/16 16:50 Physician Consult [CONS] Routine Consulting Provider: Tu Holguin Reason For Exam: Medical Management Ordering Provider has Notified Filtration Supervisor: No 01/01/17 13:49 Physician Consult [CONS] Routine Consulting Provider: Maria Thorpe Reason For Exam: delirium, dementia with behaviors Ordering Provider has Notified Filtration Supervisor: No 01/06/17 16:16 Dietary Consult [CONS] Routine Comment: Reason For Exam: high risk assessment - Discharge Diagnosis (1) Status post closed fracture of left hip Status: Acute (2) Debility Status: Acute (3) Gait instability Status: Acute (4) Acute blood loss anemia Status: Acute (5) Nausea Status: Acute 1. Closed fracture left hip 2. Debilitation 3. Acute blood loss anemia 4. Hypertension 5. Delirium 6. Nausea - Laboratory Labs: 01/14/17 03:48 01/14/17 03:48 - Microbiology Microbiology 01/11/17 12:47 Urine, Voided (Cc/notcc) Urine Culture - Final Escherichia coli History of Present Illness HPI: 01/14/17 13:55 Ms. Cabello fell at home resulting in an intratrochanteric fracture of the left hip. She was admitted to acute care and taken to surgery by Dr. Lewis on 12/2016 for repair of the fracture. Postoperatively she did have some confusion. She was transferred to the inpatient rehabilitation unit on 12/31/2016. She was noted to have acute blood loss anemia, hypertension, severe nausea and difficulty with pain management. Hospital Course This is a general summary of the patient's hospital course. For more details refer to the complete medical record. Maribell was admitted to acute inpatient rehabilitation on 12/31/2016. Her progress was initially slow due to severe pain and nausea. She reports that her nausea and anorexia predated her fall and that she has had a long history of this type of problem. Her antinausea medications were adjusted as well as her pain medication. She seemed to do best with Percocet. She tolerated this well. Her acute blood loss anemia was monitored. Her initial hemoglobin on rehabilitation was 7.9. She received a transfusion of 1 unit of packed red blood cells on 01/01/2017 with a final hemoglobin measured at 10.3. She was seen in consultation by Dr. Maria Thorpe, psychiatry who felt as though she did have delirium. Her sensorium did improve although continues to have a degree of memory difficulty. She was ultimately able to cooperate with therapy nicely. She was seen by occupational therapy. At baseline, she was able to eat at standby assistance level but ultimately with independent functioning. Grooming was initially standby assistance and ultimately independent. Bathing ability was initially moderate assistance and ultimately modified independent. Upper body dressing was initially standby assistance and ultimately independent functioning. Lower body dressing was initially maximum assistance and all 20 independent functioning. Toileting assistance was initially total assistance but ultimately modified independent. Toilet transfer assistance was initially total assistance but ultimately modified independent. Bed/chair/wheelchair functioning was initially total assistance but ultimately modified independent. Physical therapy also worked with the patient. Bed/chair/wheelchair transfers were initially maximum assistance but ultimately modified independent. Toilet assistance was initially total assistance but ultimately modified independent. Toilet transfer assistance was initially moderate assistance but ultimately modified independent. Car transfers were initially minimum assistance but ultimately standby assistance. Ambulating ability initially was total assistance at 4 feet. Ultimately she was able to ambulate with a front-wheeled walker which she will need. She was able to ambulate with modified independent functioning 165 feet. She was able to initially climb 6 stairs with maximum assistance but ultimately able to climb for stairs with standby assistance. She will be seen in follow-up by Dr. Lewis as well as her new provider Jasmin Tineo APRN. She will need a follow-up of her hemoglobin as well as blood pressure. She was sent home with 45 tablets of Percocet 5/325. Hospital course: Plan - 01/01/17 (Consult) Agree with admission to IRU for continued rehabilitation and pain control per Dr. Fagan. Consult to hospitalist service for medical management. Hemoglobin continues to trend down, currently 7.9. Patient complains of increased shortness of breath and lightheadedness with therapy. Will transfuse 1 unit PRBC now and continue to monitor hemoglobin closely. Patient noted to be hypoxic with therapy with pulse ox at 82% on room air. Placed on 2L NC with improvement. Oxygen as needed to maintain SAO2 >90% and wean as able. Patient denies use of oxygen at home. Will obtain CXR in AM. Continue to encourage incentive spirometry. Blood pressure appears elevated. Continue to monitor closely. May consider addition of Norvasc 2.5mg to lasix 40mg daily. Continue bowel motivation. History of dementia with prior delirium with pain medications. Will consult psychiatry for medication evaluation given history of sundowners like symptoms. Appreciate their time and expertise. Haldol as needed for behaviors. Will recheck CBC and BMP in AM to monitor blood counts, electrolytes and renal function. Upon discharge, patient will need to establish care with a PCP. 01/03/17 Plan Reviewed case with orthopedic team. X-rays reviewed. No acute findings. Will wean down to room air as able. Discontinue Tan catheter. Continue to work on pain control and nausea control. Discussed with nursing staff, minimizing use of Reglan as this does cause interactions with other medications. Zofran as needed for nausea. Appreciate consultation by Dr. Thorpe given probable delirium. 01/04/17 N/V - Labs assessed - WBC normal, hgb improved to 10.2. K low-normal. LFTs elevated, which is a new findings. Total bili 1.6. lipase nml. Change diet to clears - advance as tolerated KUB personally reviewed - mod amount of stool; no free air or acute abdominal findings otherwise. Increase bowel regimen - suppository this afternoon, before bed, and 1st thing in am; increase Senna Plus to 2 tabs at BID dosing. Plan - 01/06/17 ([place]) Maribell continues to struggle with significant left hip pain and nausea. She continues to utilize pain medication frequently with little improvement. Concern with narcotic pain medication causing delirium and increased confusion. Continue to attempt pain control, offering non-narcotic options as able. Continue to encourage participation in therapy for strengthening and improvement in functional abilities. Nausea continues though patient believes it is related to her pain control. Continue zofran as needed. Repeat labs on 01/05 revealed WBC normal, hemoglobin 9.3 and mild hypokalemia with potassium at 3.5. Additional dose of KCl 20 meq given on 01/05. Will recheck CMP in Am to monitor electrolytes and renal function. Continue daily KCl 20 mEq. LFTs trending down - AST 107 and ALT 114. Continue to monitor periodically. Continue clear liquid diet and advance as tolerated. Patient complained of sharp left sided chest pain that was worse with palpation on 01/04. Serial troponins were negative (0.047, 0.037, 0.021). Patient denies chest pain or shortness of breath currently. Continue to monitor closely. Persistently elevated blood pressure noted. Currently on lasix 40mg daily. Discussed with Dr. Britt. Will start lisinopril 5mg daily for improved control. Continue to monitor closely. Continue with aggressive bowel motivation. Multiple small bowel movements yesterday. KUB showed constipation. Continue Prilosec for GERD and GI protection. 01/09/17 Nausea improving; though appetite is poor. Bowels are moving. Continue Zofran ODT PRN and scopolamine patch. If nausea is opioid induced, could consider stopping Percocet and trying tramadol. Mild hypokalemia has resolved. BP showing improvement since Lisinopril was started on 01/06/17. Hgb improved to 10.2. 01/11/17 Start cephalexin for UTI. Urine culture is pending. Discussed med for anxiety and/or insomnia. Patient declines at present. Plan - 01/13/17 Patient continues to struggle with anxiety which contributes to her nausea. She reports therapy is going well overall and she feels like she is making progress. Continue to encourage participation in therapies. Keflex started on 01/11 for UTI. Culture reveals E.coli sensitive to Keflex. Will continue until 01/18. Patient denies any dysuria or abdominal pain. Patient continues to decline medication for anxiety. Continue to monitor closely and provide safe and supportive environment. Will provide Xanax .25mg PRN for anxiety and insomnia. Blood pressure remains elevated despite increase in lisinopril to 10mg on . Continue to monitor closely. May consider addition of Norvasc for additional control. Time spent with patient: 25 - 35 minutes Discharge Plan - Med Rec/Dispo Referrals/Follow Up: Jasmin Tineo APRN [Advanced Practice Nurse] - (Jasmin Tineo APRN on 01/23/17 at 1:00 pm for new patient referral. [phone]. [facility] [address] [facility] [address] [place] [address] ) Fadumo Farias MD [Physician] - (New patient referral. Dr. Spencer Farias's office will notify patient of the date and time of her appt. ) Mervin Diaz PA [Physician Varnishing Unit Operator] - (NATALIO Echevarria on 01/25/17 at 9:30 am for Post-Op follow-up. Check-in at 9:[address] [place] [address]) Prescriptions: New CephALEXin [Keflex] 500 mg PO TID #14 cap Lisinopril [Prinivil] 10 mg PO DAILY #30 tab Potassium Chloride [Micro-K] 20 meq PO WB #30 cap Oxycodone/Acetaminophen 5/325 [Percocet 5/325] 1 tab PO Q4H PRN #45 tab PRN Reason: Pain Furosemide [Lasix] 40 mg PO DAILY #30 tab PEG 3350 17gm PACKET [Miralax] 17 gm PO DAILY packet Continue Donepezil HCl [Aricept] 10 mg PO HS Discontinued Bisacodyl Supp [Dulcolax] 10 mg RECTALLY DAILY PRN suppositor PRN Reason: Constipation Enoxaparin Sodium [Lovenox] 40 mg SQ DAILY syringe Hydrocodone/APAP 5/325 [Scalf 5/325] 1 tab PO Q4H PRN tab PRN Reason: Pain Milk of Magnesia [Mom] 30 ml PO DAILY PRN udc PRN Reason: Constipation Nozin Nasal Swab 1 each NELI Q8H appl Ondansetron Inj [Zofran] 4 mg IVP Q6H PRN vial PRN Reason: Nausea PEG 3350 17gm PACKET [Miralax] 17 gm PO DAILY packet Saline Flush [IV Flush] 10 - 80 ml IVF PRN PRN syringe PRN Reason: Flushing Acetaminophen [Tylenol] 650 mg PO Q5H PRN tab PRN Reason: Discomfort Haloperidol [Haldol] 0.5 mg PO Q6H PRN tab PRN Reason: Agitation/Restlessness Morphine Sulfate Inj 1 - 2 mg IVP Q2H PRN syringe PRN Reason: Pain Potassium Chloride [K-Dur] 20 meq PO WB tab Senna + Docusate [Senna Plus Tablet] 1 tab PO BID tab - Disposition 01 Discharged Home, Self-Care - Dismissal Complete Discharge Instructions are:: Complete
--- NOTE | 2017-01-14 14:33 | Progress Note ---
Progress Note: I have spoken with Dr. Lewis's nurse regarding the Lovenox issue. She needs to be on 40 mg daily for 30 days after the surgery. This would make the last day January 25. Unfortunately she does not have insurance coverage for this. I inquired as to whether we could use warfarin and that was approved by Dr. Lewis. I have called Roni Bolaños here in [place] to give an order for warfarin 4 mg tablets #14 to take 1 at 5 PM daily. In addition, we have asked [facility] to draw an INR on January 16 with results to Jasmin Tineo. I will contact Jasmin's office to let them know this will be coming. Last day can be January 25. I have attempted to call the patient's daughter at [phone] on several occasions and have left messages. I will continue to try to contact her with this new information.
--- NOTE | 2017-01-15 11:04 | Progress Note ---
Progress Note: Ms. Cabello will require use of a front-wheeled walker for safe ambulation in her home. This is due to her recent left hip fracture which was repaired.
== END 2017-01-14 14:10 | disposition home health service (06) | DRG 560 ==
PROVIDERS: ADMIT Internal Medicine; ATTEND Internal Medicine

== ENCOUNTER 2017-10-02 23:55 | Observation (INO) ==
[2017-10-03] MEDS ORDERED: SALINE FLUSH 10ml SYRINGE IVF PRN (00:02)
[2017-10-03] MEDS ORDERED: KETOROLAC 15 MG/ML INJECTION IVP ONE (00:10)
[2017-10-03] MEDS ORDERED: ONDANSETRON 4 MG/2 ML INJECTION IVP ONE (00:10)
[2017-10-03] MEDS ORDERED: NS 1,000 ML IV ONE (00:10)
--- NOTE | 2017-10-03 00:23 | Emergency Department Report ---
Nausea/Vomiting/Diarrhea HPI - General Chief complaint: Nausea/Vomiting/Diarrhea Stated complaint: FALL Time Seen by Provider: 10/03/17 00:02 Source: patient, EMS Mode of arrival: EMS Limitations: no limitations - History of Present Illness HPI Narrative: She began having nausea vomiting and diarrhea this morning, and has progressively worsened throughout the day. Patient finally became disoriented and confused later in the day, and tried to get up and fell setting up an alert , however she was confused. Patient had no other obvious head injury, had no complaints of neck pain or injury, no other visible injuries on her body. Patient has not seen her physician nor has she taken any medication for her symptoms - Related Data Home Medications Medication Instructions Recorded Confirmed Donepezil HCl [Aricept] 10 mg PO HS 12/29/16 10/03/17 Escitalopram [Lexapro] 1 tab PO DAILY 10/03/17 10/03/17 Metoprolol Tartrate [Lopressor] 25 mg PO BIDWM 10/03/17 10/03/17 Trazodone [Desyrel] 1 tab PO QDRHS 10/03/17 10/03/17 Previous Rx's Medication Instructions Recorded Lisinopril [Prinivil] 10 mg PO DAILY #30 tab 01/14/17 Potassium Chloride [MICRO-K 10 mEq 20 meq PO WB #30 cap 01/14/17 Capsule] Allergies Allergy/AdvReac Type Severity Reaction Status Date / Time No Known Allergies Allergy Verified 10/03/17 01:09 Review of Systems All systems: reviewed and negative except as stated PFSH Patient Stated Medical History Dental Problems Yes: full set of dentures Hypertension Yes: TAKES HERBAL MEDS Sleep Apnea No Constipation No Hx Incontinence No Rheumatoid Arthritis No Other Musculoskeletal Yes: Dementitia Surgical History: Cholecystectomy. Patient believes she has a T&A, hysterectomy and cataracts. Unable to confirm. - Social History Smoking status: Never smoker second hand exposure: No Substance use type: does not use Alcohol intake: never Alcohol intake frequency: does not drink Housing: house Household members: caregiver (daughter) Current occupational status: retired Does patient use chewing tobacco?: No Current residence: Apartment/Private Home Physical Exam - Limitations Limitations: no limitations - General General appearance: lethargic, in distress (patient does not appear alert, is confused, but can communicate verbally) - Normal Exams: Eyes:: Pupils are PERRLA w/ EOMI, No scleral icterus, irritation, or foreign bodies noted ENMT:: No facial trauma, nasal exudates, pharyngeal erythema, or exudates are noted Neck:: Full range of motion, without adenopathy, JVD, bruits or thyromegaly Chest/Respirations:: Clear all asencio, with good airflow, and symmetry bilaterally Cardiovascular:: Regular rate and rhythm, without murmur or gallop, Pulses 2+ all extremities, capillary refill, <2 seconds all extremities Lymphatic:: No lymphadenopathy, or lymphedema noted Musculoskeletal:: No tenderness, or deformity noted, good range of motion, all extremities Integumentary:: No rashes, hives, or bruising noted, hair and nails, without abnormality Neurological:: Patient is alert, and oriented, cranial nerves, motor/sensory/ cerebellar, exams w/o gross deficits, to observation Psychiatric:: Patient exhibits, appropriate attention, emotion and affect - Head Head exam: other - Neck Neck exam: Present: normal inspection, full ROM, trachea midline. Absent: tenderness (nontender with full range of motion), meningismus, lymphadenopathy, thyromegaly - Abdominal Exam Abdominal exam: Present: soft, tenderness (mild diffuse tenderness, no guarding no rebounding), hypoactive bowel sounds. Absent: distention, guarding, rebound , rigidity, trauma, obturator sign, heel tap sign, Thompson's sign, Rovsing's sign , tenderness at McBurney's Point, mass, bruit, pulsatile mass, hernia Course Vital Signs Pulse Rate 67 10/03/17 00:00 Blood Pressure 203/87 H 10/03/17 00:00 Pulse Oximetry 98 10/03/17 00:00 Temperature 97.6 F 10/03/17 00:04 Pulse Rate 62 10/03/17 01:47 Respiratory Rate 24 10/03/17 00:04 Blood Pressure 158/69 H 10/03/17 01:47 Pulse Oximetry 94 10/03/17 01:47 Nausea/Vomiting/Diarrhea - [facility] Narrative Medical decision making narrative: Patient is given 1 L normal saline IV fluid bolus with Zofran for nausea CBC is normal CMP with lipase is normal Patient's nausea was initially controlled with Zofran, but has now come back. Patient is given 6 mg Compazine IV On reexamination the patient's bowel sounds have not improved. KUB/decubitus films are ordered UA is essentially normal Abdominal films - normal. Patient continues to be profoundly weak, continues to have occasional dry heaves , and watery diarrhea. Patient is unable to even lift her arms or legs off the bed at this point, and will be unable to care for herself at home. Discussed with Dr. Hines, will admit observation to medical for IV fluids and continued antiemetics. Stool PCR is ordered, but has not been obtained yet. - Lab Data Result diagrams: 10/03/17 00:19 10/03/17 00:19 Lab Results 10/03/17 10/03/17 10/03/17 Range/Units 00:19 00:19 01:19 WBC 5.2 (4.5-11.0) T/MM3 RBC 4.14 (4.00-5.20) M/MM3 Hgb 12.6 (12-16) GM/DL Hct 37.7 (36-46) % MCV 91.1 (80-100) UM3 MCH 30.4 (26-34) UUG MCHC 33.4 (31-37) GM/DL RDW Std Deviation 43.6 (36.9-50.2) FL Plt Count 171 (130-400) T/MM3 MPV 10.9 (9.4-12.4) UM3 Immature Gran % (Auto) 0.6 H (0.0-0.5) % Neut % (Auto) 75.3 H (33-66) % Lymph % (Auto) 15.9 L (23-45) % [place] % (Auto) 7.4 (0-9.0) % Eos % (Auto) 0.6 (0-4) % Baso % (Auto) 0.2 (0-2) % Neut # (Auto) 3.9 (1.8-7.7) T/MM3 Lymph # (Auto) 0.8 L (1-4.8) T/MM3 [place] # (Auto) 0.4 (0-0.8) T/MM3 Eos # (Auto) 0.0 (0-0.5) T/MM3 Baso # (Auto) 0.0 (0-0.2) T/MM3 Abs Immat Gran (auto) 0.03 (0.00-0.03) T/MM3 Turbidity < 20 (0-20) Sodium 141 (136-146) MEQ/L Potassium 3.8 (3.6-5) MEQ/L Chloride 105 (98-107) MEQ/L Carbon Dioxide 26 (22-30) MEQ/L Anion Gap 10 (5-15) meq/L BUN 23.0 H (7-17) MG/DL Creatinine 0.6 L (0.7-1.2) mg/dL Estimated Creat Clear Not performed GFR Calculation 96 (>60) mL/min BUN/Creatinine Ratio 38 H (6-26) RATIO Glucose 147 H (65-110) MG/DL Calculated Osmolality 278 (261-280) MOSM/KG Calcium 9.9 (8.4-10.2) MG/DL Total Bilirubin 1.00 (0.20-1.30) MG/DL Conjugated Bilirubin 0.00 (0.00-0.30) mg/dL Unconjugated Bilirubin 1.10 (0.00-1.1) mg/dL Icterus Index < 2 (0-7) AST 31 (14-36) U/L ALT 20 (1-35) U/L Alkaline Phosphatase 55 (38-126) U/L Total Protein 6.9 (6.3-8.2) g/dL Albumin 4.3 (3.5-5.0) g/dL Globulin 2.6 (2.4-3.6) G/DL Albumin/Globulin Ratio 1.7 (1.1-2.2) RATIO Lipase 162 (23-300) U/L Plasma Lactate 0.9 (0.6-2.2) MMOL/L Specimen Hemolysis 20 (0-25) Ur Collection Type Urine, cath straight Urine Color Yellow (YELLOW) Urine Clarity Clear Urine pH 6.5 (5.0-8.0) Ur Specific [place] 1.015 (1.015-1.025) Urine Protein Negative (NEGATIVE) Urine Glucose (UA) Negative (NEGATIVE) Urine Ketones 1+ A (NEGATIVE) Urine Occult Blood 1+ A (NEGATIVE) Urine Nitrate Negative (NEGATIVE) Urine Bilirubin Negative (NEGATIVE) Urine Urobilinogen 0.2 (NORMAL) EU/DL Ur Leukocyte Esterase Trace A (NEGATIVE) Urine RBC 3-5 H (0-3) /HPF Urine WBC 0-1 (0-5) /HPF Amorphous Sediment Few Urine Bacteria None seen (NEGATIVE) Ur Culture Indicated? Cult not indicated Disposition Clinical Impression: Intractable diarrhea, Viral gastroenteritis Intractable vomiting Qualifiers: Vomiting type: unspecified Nausea presence: with nausea Qualified Code(s): R11.2 - Nausea with vomiting, unspecified Disposition: [facility] [place] [place] Condition: Improved Prescriptions: No Action Donepezil HCl [Aricept] 10 mg PO HS Lisinopril [Prinivil] 10 mg PO DAILY #30 tab Potassium Chloride [MICRO-K 10 mEq Capsule] 20 meq PO WB #30 cap Escitalopram [Lexapro] 1 tab PO DAILY Metoprolol Tartrate [Lopressor] 25 mg PO BIDWM Trazodone [Desyrel] 1 tab PO QDRHS Referrals: Fadumo Farias MD [Primary Care Provider] - - Seen By: physician
[2017-10-03] MEDS ORDERED: PROCHLORPERAZINE 10 MG/2 ML INJECTION IVP ONE (01:49)
[2017-10-03] MEDS ORDERED: NS 1,000 ML IV SCH (02:15)
[2017-10-03] MEDS ORDERED: ONDANSETRON 4 MG/2 ML INJECTION IVP PRN (03:10)
[2017-10-03] MEDS ORDERED: ACETAMINOPHEN 325 MG TABLET PO PRN (03:10)
[2017-10-03] MEDS ORDERED: MORPHINE SULFATE 2mg INJECTION IVP PRN (03:10)
[2017-10-03] MEDS ORDERED: FALL RISK - PHARMACY CONSULT MC ONE (03:26)
--- NOTE | 2017-10-03 03:48 | History & Physical Report ---
History of Present Illness Date: 10/03/17 Chief complaint: Vomiting and diarrhea, weakness HPI: Maribell is a pleasant 82 year old CF patient who presented to the ER with multiple bouts of vomiting and watery diarrhea today. her daughter states that she was admitted to [facility] in july, and she has had some intermittent loose stools since that time. she has been somewhat weak, but particularly worse today to the point where she could not perform her own activities of daily living. she did fall at home this evening, she was not injured and cleared from a trauma standpoint in the emergency room. in the emergency department, after triage treatment with fluids and antiemetics, she had additional dry heaving, and was very weak compared to her normally high functioning baseline. she is thus placed in observation for further evaluation and management. Review of Systems - Constitutional Constitutional: Present: anorexia, chills, fatigue. Absent: fever(s) - Cardiovascular Cardiovascular: Absent: chest pain, syncope, dyspnea on exertion - Gastrointestinal Gastrointestinal: Present: abdominal pain, diarrhea Gastrointestinal Comments: her daughter states that she had an egd in july in [place] and was noted to have a small gastric ulcer. - Neurological Neurological: Present: confusion ( mild chronic dementia). Absent: focal weakness, frequent falls - Psychiatric Psychiatric: Absent: anxiety, depression ( history and review of systems provided by her daughter remy at the bedside) Past Medical History Medical History Updates: essential hypertension mild. she had a stress test in [place] in july which was reported negative. mild dementia Surgical History: Cholecystectomy. Patient believes she has a T&A, hysterectomy and cataracts. Unable to confirm. Family History Updates: she had 14 siblings. her daughter is able to say that dementia does not run in her siblings. no chronic cardiac neurologic or renal disease that her daughter could recall at this time. Family History: As Above - Social History Smoking status: Never smoker Alcohol intake frequency: does not drink Housing: house Household members: children ( her daughter lives with her) Current occupational status: retired ( she worked in [employer] at [facility] from the day it opened until she was 74 years old) Medications Home Medications Medication Instructions Recorded Confirmed Type Donepezil HCl [Aricept] 10 mg PO HS 12/29/16 10/03/17 History Lisinopril [Prinivil] 10 mg PO DAILY #30 tab 01/14/17 10/03/17 Rx Potassium Chloride [MICRO-K 10 mEq 20 meq PO WB #30 cap 01/14/17 10/03/17 Rx Capsule] Escitalopram [Lexapro] 1 tab PO DAILY 10/03/17 10/03/17 History Metoprolol Tartrate [Lopressor] 25 mg PO BIDWM 10/03/17 10/03/17 History Trazodone [Desyrel] 1 tab PO QDRHS 10/03/17 10/03/17 History Allergies Allergy/AdvReac Type Severity Reaction Status Date / Time No Known Allergies Allergy Verified 10/03/17 01:09 Exam Vital Signs: Temperature 96.7 F L 10/03/17 03:11 Pulse Rate 65 10/03/17 03:11 Respiratory Rate 18 10/03/17 03:11 Blood Pressure 137/71 10/03/17 03:11 Pulse Oximetry 96 10/03/17 03:11 Height/Weight/BMI: Height 5 ft 2 in Weight 61.6 kg Body Mass Index 24.8 - Constitutional Present: no acute distress, well nourished - Routine HEENT Exam Head: Present: normocephalic, atraumatic - Routine Neck Exam Present: supple, full ROM. Absent: JVD - Routine Respiratory Exam Present: CTA bilaterally. Absent: accessory muscle use, dyspnea - Routine Cardiovascular Exam Present: RRR - Routine Abdominal Exam Present: soft, normoactive bowel sounds - Routine Skin Exam Present: intact. Absent: rash - Routine Neurological Exam Absent: sensory deficit, motor deficit somnolent, but wakes easily to voice to answer questions - Routine Psychiatric Exam Comments: flat affect - Additional findings Additional findings: examination performed using telemedicine equipment with the assistance of the bedside nurse Results - Labs CBC & Chem 7: 10/03/17 00:19 10/03/17 00:19 Assessment and Plan (1) Gastroenteritis Current visit: Yes Status: Acute (2) Benign essential hypertension Current visit: No Status: Chronic (3) Intractable vomiting Current visit: Yes Status: Acute (4) Intractable diarrhea Current visit: Yes Status: Acute Assessment and Plan: maribell is placed in observation status for continued supportive care with iv fluids, iv antiemetics and analgesics. serial examination. stool studies ordered in the emergency department have not been obtained yet, but will be reviewed when results are available. physical therapy ordered for the morning , will add h2 martha with her history of gastric ulcer earlier this summer. she desires full code status. will provide further symptomatic supportive and diagnostic cares as her current workup, or as changes in her clinical scenario indicate. plan of care was discussed with her daughter at the bedside at the time of my evaluation and she expressed understanding and desired to proceed. DVT Prophylaxis: SCD's - Physician Narrative Physician: Magnus Rich MD Narrative: Date: 10/03/17 Time: 342 Dr. Hines's note reviewed. Ms. Cabello interviewed and examined at bedside. CC: Fatigue, vomiting, diarrhea HPI: A pleasant 82-year-old female patient who lives at home with her daughter presented to emergency room with 2 day history of nausea, episodes of vomiting and loose watery stools. Patient reports approximately 45 episodes of loose, brownish watery stools daily for the past 2 days. Symptoms of nausea associated with vomiting food particles. Patient also complains of some abdominal discomfort. Patient does have some mild dementia. At the time of evaluation at bedside, patient under contact precautions because of GI panel ordered including C. difficile. Patient has not had a bowel movement since admission from ER. No reported abdominal pain, no nausea reported at the time of examination. Patient tolerating clear liquid diet. Diet progress to soft, cardiac diet as tolerated. PH: Hypertension, dementia SH: Cholecystectomy, hysterectomy, cataract extraction surgery, tonsillectomy. Social: Patient lives at home with her daughter. Mild dementia although independent for activities of daily living. Patient has 2 daughters and a son, 14 siblings. No reported history of tobacco, recreational drug use. Very rare alcohol use. FH: Some of patient's brothers and sisters have a history of coronary artery disease. No reported family history of cancer, no reported family history of diabetes mellitus. ROS: 10 point review negative except - abdominal discomfort, nausea, vomiting, diarrhea, decreased appetite, fatigue, weakness EXAM: General: Alert, awake, oriented to self, place and person. Not in acute distress. Head: Pupils equal, round, reactive to light and accommodation. Extraocular movements intact. Neck: No elevation in JVP. No pharyngeal erythema noted. Chest: The patient does not use accessory muscles for breathing. Lungs: Breath sounds audible on auscultation bilateral lung asencio. No wheezing , no rhonchi, no crepitations, no crackles. No pleural rub. CVS: S1, S2 heard on auscultation. Normal rate and rhythm. No murmur, no S3/S4 gallops. Abdomen: Soft, nontender, no distention. Bowel sounds appreciated on auscultation. : No flank tenderness, no suprapubic distention or tenderness. Skin: No rashes, no induration, no erythema. Capillary refill less than 4 seconds. Extremities: No evidence of pedal edema bilateral lower extremities. No calf tenderness bilaterally. Palpable dorsalis pedis and posterior tibial pulses bilateral lower extremities. DATA: Laboratory Tests 10/03/17 10/03/17 00:19 01:19 Calcium 9.9 Total Bilirubin 1.00 Conjugated Bilirubin 0.00 Unconjugated Bilirubin 1.10 Icterus Index < 2 AST 31 ALT 20 Alkaline Phosphatase 55 Total Protein 6.9 Albumin 4.3 Globulin 2.6 Albumin/Globulin Ratio 1.7 Lipase 162 Plasma Lactate 0.9 Specimen Hemolysis 20 Ur Collection Type Urine, cath straight Urine Color Yellow Urine Clarity Clear Urine pH 6.5 Ur Specific [place] 1.015 Urine Protein Negative Urine Glucose (UA) Negative Urine Ketones 1+ A Urine Occult Blood 1+ A Urine Nitrate Negative Urine Bilirubin Negative Urine Urobilinogen 0.2 Ur Leukocyte Esterase Trace A Urine RBC 3-5 H Urine WBC 0-1 Amorphous Sediment Few Urine Bacteria None seen Ur Culture Indicated? Cult not indicated Assessment: Intractable nausea, vomiting, diarrhea with concern for underlying gastroenteritis of possibly viral origin. Fatigue, weight loss, failure to thrive. Hypertension. Dementia Plan: Patient admitted for observation to medical floor. IV D5 half-normal saline with 20 meq potassium chloride at 80 ML per hour. Pepcid 20 mg IV twice a day. Awaiting GI panel results, patient will remain under contact precautions for now. IV Zofran 4 mg every 6 hours as needed for nausea/vomiting. IV morphine 12 milligram every 2 hours as needed for moderate to severe pain. Tylenol 650 mg by mouth every 5 hours as needed for mild pain or fever. Continue home medication lisinopril, metoprolol tartrate, escitalopram, Aricept. Patient tolerating clear liquid diet, will progress to soft cardiac diet as tolerated. Dietitian consulted. PT/OT consulted. CBC, BMP ordered for tomorrow morning. Hospital Course Summary Disclaimer: The visit summary below is not to be considered part of the above Progress Note.
[2017-10-03] MEDS: POTASSIUM CHLORIDE INJ 20 MEQ in D5-1/2NS 1,000 ML IV SCH (03:52)
[2017-10-03] MEDS: TRAZODONE 50 MG TABLET PO SCH (04:39)
[2017-10-03] MEDS: FAMOTIDINE PB 20 MG/50 ML BAG IV SCH ×2 (04:44→16:18)
--- NOTE | 2017-10-03 07:55 | XRay Report ---
Indication: dental chairside assistant vomiting, diminished bowel sounds PROCEDURE: XR abdomen 2V: Encounter: Initial Comparison: January 04, 2017 Findings: The visualized lung bases are clear. There is no free air on the upright view. The bowel gas pattern is nonobstructive and nonspecific. Gas is seen in nondilated small and large bowel to the level of the rectum. Minimal stool is seen throughout the colon. Impression: Nonobstructive nonspecific bowel gas pattern. .
--- NOTE | 2017-10-03 07:57 | CT Scan Report ---
Indication: fall, confusion PROCEDURE: CT head/brain wo con: Encounter: Initial Comparison: None Technique: Axial CT images through the head were performed without contrast. Iterative Reconstruction dose reducing technique was utilized. FINDINGS: Mild atrophy. Old basal ganglia lacunar infarcts. The ventricles are of normal size, shape, and configuration for the patient's age. There is no evidence of acute intracranial hemorrhage, midline displacement, or mass effect. There are scattered areas of low attenuation in the white matter which most likely represent changes of chronic microvascular ischemia. The CT attenuation of the brain parenchyma is otherwise normal within the cerebellum, brain stem, and cerebral hemispheres. The tympanic cavities and mastoid air cells are free of appreciable disease. There are no definite fractures of the skull base, calvarium, or visualized portion of the midface. Left sphenoid sinus disease. IMPRESSION: No CT evidence of acute traumatic intracranial injury. There is a preliminary report by [facility] ([facility]: [place]) radiologic. .
[2017-10-03] MEDS: ESCITALOPRAM 10 MG TABLET PO SCH (10:30)
[2017-10-03] MEDS: LISINOPRIL 10 MG TABLET PO SCH (10:37)
[2017-10-03 14:01] VITALS: BMI 25.0
[2017-10-03] MEDS ORDERED: PNEUMOCOCCAL 13 VACCINE 0.5ml INJECTION IM ONE (16:32)
[2017-10-03] MEDS: D5-1/2NS with KCL 20mEq 1,000 ML IV SCH (19:50)
[2017-10-03] MEDS ORDERED: DONEPEZIL 10 MG TABLET PO SCH (21:00)
[2017-10-04] MEDS: TRAZODONE 50 MG TABLET PO SCH (04:59)
[2017-10-04] MEDS: FAMOTIDINE PB 20 MG/50 ML BAG IV SCH (05:02)
[2017-10-04 08:07] VITALS: BP 135/71; RESP 16; O2SAT 95
[2017-10-04] MEDS: POTASSIUM CHLORIDE INJ 20 MEQ in D5-1/2NS 1,000 ML IV SCH (08:14)
[2017-10-04] MEDS: ESCITALOPRAM 10 MG TABLET PO SCH (08:34)
[2017-10-04] MEDS: LISINOPRIL 10 MG TABLET PO SCH (08:34)
[2017-10-04] MEDS: D5-1/2NS with KCL 20mEq 1,000 ML IV SCH (09:39)
[2017-10-04] MEDS ORDERED: D5-1/2NS with KCL 20mEq 1,000 ML IV SCH (10:08)
--- NOTE | 2017-10-04 11:14 | Discharge Summary ---
Discharge Information Date of admission: 10/03/17 02:31 Anticipated date of discharge: 10/04/17 Attending Physician: Magnus Rich MD Primary care physician: Fadumo Farias MD Consults: 10/03/17 03:10 Case Management Consult [CONS] Routine Reason For Exam: 10/03/17 13:02 Dietary Consult [CONS] Routine Comment: Reason For Exam: increase protein intake - Discharge Diagnosis (1) Gastroenteritis Status: Resolved (2) Benign essential hypertension Status: Chronic (3) Intractable vomiting Status: Resolved (4) Intractable diarrhea Status: Resolved Fatigue, POA, resolved Hypertension, POA, chronic. Dementia, POA, chronic - Laboratory Labs: 10/04/17 04:47 10/04/17 04:47 Laboratory Tests 10/03/17 10/03/17 10/03/17 00:19 00:19 01:19 WBC 5.2 RBC 4.14 Hgb 12.6 Hct 37.7 MCV 91.1 MCH 30.4 MCHC 33.4 RDW Std Deviation 43.6 Plt Count 171 MPV 10.9 Immature Gran % (Auto) 0.6 H Neut % (Auto) 75.3 H Lymph % (Auto) 15.9 L [place] % (Auto) 7.4 Eos % (Auto) 0.6 Baso % (Auto) 0.2 Sodium 141 Potassium 3.8 Chloride 105 Carbon Dioxide 26 Anion Gap 10 BUN 23.0 H Creatinine 0.6 L GFR Calculation 96 BUN/Creatinine Ratio 38 H Glucose 147 H Calculated Osmolality 278 Calcium 9.9 Total Bilirubin 1.00 Conjugated Bilirubin 0.00 Unconjugated Bilirubin 1.10 Icterus Index < 2 AST 31 ALT 20 Alkaline Phosphatase 55 Total Protein 6.9 Albumin 4.3 Globulin 2.6 Albumin/Globulin Ratio 1.7 Lipase 162 Plasma Lactate 0.9 Ur Collection Type Urine, cath straight Urine Color Yellow Urine Clarity Clear Urine pH 6.5 Ur Specific [place] 1.015 Urine Protein Negative Urine Glucose (UA) Negative Urine Ketones 1+ A Urine Occult Blood 1+ A Urine Nitrate Negative Urine Bilirubin Negative Urine Urobilinogen 0.2 Ur Leukocyte Esterase Trace A Urine RBC 3-5 H Urine WBC 0-1 Amorphous Sediment Few Urine Bacteria None seen Ur Culture Indicated? Cult not indicated - Radiology Radiology: CT scan of head performed on 10/03/2017 IMPRESSION: No CT evidence of acute traumatic intracranial injury. Two-view abdominal x-ray performed on 10/03/2017 Impression: Nonobstructive nonspecific bowel gas pattern. History of Present Illness HPI: A pleasant 82-year-old female patient who lives at home with her daughter presented to emergency room with 2 day history of nausea, episodes of vomiting and loose watery stools. Patient reports approximately 45 episodes of loose, brownish watery stools daily for the past 2 days. Symptoms of nausea associated with vomiting food particles. Patient also complains of some abdominal discomfort. Patient does have some mild dementia. At the time of evaluation at bedside, patient under contact precautions because of GI panel ordered including C. difficile. Patient has not had a bowel movement since admission from ER. No reported abdominal pain, no nausea reported at the time of examination. Patient tolerating clear liquid diet. Diet progress to soft, cardiac diet as tolerated. Objective Vital signs: Temperature 98.1 F 10/04/17 08:00 Pulse Rate 60 10/04/17 08:00 Respiratory Rate 16 10/04/17 08:00 Blood Pressure 135/71 10/04/17 08:00 Pulse Oximetry 95 10/04/17 08:00 Height/Weight/BMI: Height 1.57 m Weight 64.2 kg Body Mass Index 25.0 - Additional findings Additional findings: General: Alert, awake, oriented to self, place and person. Not in acute distress. Head: Pupils equal, round, reactive to light and accommodation. Extraocular movements intact. Neck: No elevation in JVP. No pharyngeal erythema noted. Chest: The patient does not use accessory muscles for breathing. Lungs: Breath sounds audible on auscultation bilateral lung asencio. No wheezing , no rhonchi, no crepitations, no crackles. No pleural rub. CVS: S1, S2 heard on auscultation. Normal rate and rhythm. No murmur, no S3/S4 gallops. Abdomen: Soft, nontender, no distention. Bowel sounds appreciated on auscultation. : No flank tenderness, no suprapubic distention or tenderness. Skin: No rashes, no induration, no erythema. Capillary refill less than 4 seconds. Extremities: No evidence of pedal edema bilateral lower extremities. No calf tenderness bilaterally. Palpable dorsalis pedis and posterior tibial pulses bilateral lower extremities. Hospital Course This is a general summary of the patient's hospital course. For more details refer to the complete medical record. Hospital course: 10/03/2017 Patient admitted for observation to medical floor. IV D5 half-normal saline with 20 meq potassium chloride at 80 ML per hour. Pepcid 20 mg IV twice a day. Awaiting GI panel results, patient will remain under contact precautions for now. IV Zofran 4 mg every 6 hours as needed for nausea/vomiting. IV morphine 12 milligram every 2 hours as needed for moderate to severe pain. Tylenol 650 mg by mouth every 5 hours as needed for mild pain or fever. Continue home medication lisinopril, metoprolol tartrate, escitalopram, Aricept. Patient tolerating clear liquid diet, will progress to soft cardiac diet as tolerated. Dietitian consulted. PT/OT consulted. CBC, BMP ordered for tomorrow morning. 10/04/2017 - discharge Patient able to ambulate independently with physical therapy assistance. Physical therapy recommended discharge home with home health, rn field case manager Miss Armstrong discussed with patient about home health and patient declined. Patient's daughter stays with her at home. Patient has not had any bowel movements during hospital stay and symptoms of abdominal discomfort, nausea, vomiting and diarrhea have resolved. GI panel which was ordered from the emergency room has been canceled. Patient tolerating soft cardiac diet. Dietitian consulted because of lack of appetite and poor oral intake. Recommendation for supplements 3 times a day. Fall risk assessment performed by pharmacy, report reviewed. Patient on home medication trazodone at bedtime which will be held at the time of discharge with concern for fall, worsening altered mental status in the context of dementia. Patient advised to follow-up with PCP, Dr. Farias in 1 week after discharge. Resuscitation Status: Full Code Discharge Plan - Discharge Disposition Discharge Date: 10/04/17 Disposition: 01 Discharged Home, Self-Care *Condition: Improved Reason For Visit (Visit label in EMR): weakness, n/v - Discharge Medications *Discharge Medications: Continue Donepezil HCl [Aricept] 10 mg PO HS Lisinopril [Prinivil] 10 mg PO DAILY #30 tab Potassium Chloride [MICRO-K 10 mEq Capsule] 20 meq PO WB #30 cap Escitalopram [Lexapro] 1 tab PO DAILY Metoprolol Tartrate [Lopressor] 25 mg PO BIDWM Discontinued Trazodone [Desyrel] 1 tab PO QDRHS - Discharge Packet/Instructions *Diet: Regular diet. Patient encouraged to consume one can of ensure 3 times a day with meals. *Activity: As tolerated. Fall precautions. Follow physical therapy recommendations. *Pain Management/Treatment: Tylenol 500 mg by mouth every 6 hours as needed for pain. *Wound Care: Not applicable *Expected Signs/Symptoms: Continued symptomatic improvement. *Notify Physician if: Fever, chills, increased shortness of breath, intractable nausea, vomiting, abdominal pain, chest pain, palpitations, dizziness, blurred vision, diarrhea, fatigue, weakness, flank pain, dysuria, black tarry stools, bright red blood per rectum or any other concerning findings. *During Business Hours Contact: Your PCP, Dr. Murphy *After Business Hours Contact: Call [facility] at [phone] and ask that the on-call physician be paged *Pending Lab/Results: No Pending Lab - Referrals/Follow Up *Referrals/Follow Up: Fadumo Farias MD [Primary Care Provider] - 1 Week - Patient Handouts - Dismissal Complete Discharge Instructions are:: Complete Physician Narrative - Narrative Attestation Narrative: Date: 10/04/17 Time: 1110
[2017-10-04 16:17] VITALS: PULSE 69; TEMP 97.5
== END 2017-10-04 16:35 | disposition home or self-care (01) ==
LOC: EDHOLD 23:55 → ED 23:55 → MED 10-03 03:04
PROVIDERS: ADMIT Internal Medicine; ATTEND Internal Medicine